=== PATIENT | female | born 1950 | race Caucasian/White ===

== ENCOUNTER → 2019-03-31 07:37 | Outpatient (CLI) | payer MEDICARE, SELFPAY ==
--- NOTE | ~2019-03-31 | US_ITS ---
EXAMINATION: US aorta [facility] scrn DATE: 03/31/2019 08:08 INDICATION: Nicotine dependence, hypertension, hypercholesterolemia TECHNIQUE: Grayscale, color Doppler, and pulsed Doppler images of the aorta and common iliac arteries were obtained. COMPARISON: None. FINDINGS: Maximum vascular dimensions are as follows: Proximal aorta: 2.1 cm Mid aorta: 1.9 cm Distal aorta: 1.3 cm Right common iliac artery: 1.0 cm Left common iliac artery: 1.0 cm There is no evidence of abdominal aortic aneurysm. IMPRESSION: 1. No sonographic evidence of abdominal aortic aneurysm. 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
== END ==
PROVIDERS: PCP Family Medicine; Visit Provider Family Medicine
DX: F17.201 Nicotine dependence, unspecified, in remission (principal)
CPT/HCPCS: 76706

== ENCOUNTER → 2019-04-22 08:15 | Outpatient (CLI) | payer MEDICARE, SELFPAY ==
--- NOTE | ~2019-04-22 | US_ITS ---
EXAMINATION: US renal BI EXAM DATE: 04/22/2019 08:40 INDICATION: Short of kidney and ureter. Elevated creatinine. TECHNIQUE: Multiple grayscale and Doppler images of the kidneys were obtained (by a technologist who performed the scan) and subsequently reviewed. Comparison is made to prior examination from 06/13/2018 . FINDINGS: Right kidney: There is normal contour and echogenicity. It measures 13.4 x 6.4 x 7.9 centimeters. T here are no focal renal lesions identified. There is moderate caliectasis of the lower pole moiety, could indicate duplicated renal collecting system, possibly with obstruction or could be chronic find ing. Left kidney: There is normal contour and echogenicity. It measures 10.2 x 5.0 x 6.5 centimeters. Pos sible echogenic focus, left nephrolithiasis measuring 7 mm. There is no hydronephrosis. Bladder unremarkable. IMPRESSION: 1. Moderate hydronephrosis right kidney lower moiety, could indicate duplicated collecting system wi th obstruction of one of the ureters. 2. Probable left nephrolithiasis. Reviewed, dictated and finalized at location A. E CHEMICAL DEPENDENCY IMPRESSION: 1. Moderate hydronephrosis right kidney lower moiety, could indicate duplicate d collecting system with obstruction of one of the ureters. 2. Probable left nephrolithiasis.
== END ==
PROVIDERS: Visit Provider Family Medicine
DX: N20.0 Calculus of kidney (principal)
CPT/HCPCS: 76775

== ENCOUNTER → 2019-05-27 08:45 | Outpatient (CLI) | payer MEDICARE, SELFPAY ==
--- NOTE | ~2019-05-27 | CT_ITS ---
EXAMINATION: CT abdomen pelvis wo con DATE: 05/27/2019 09:06 INDICATION: Hematuria and right flank pain TECHNIQUE: Computed tomography (CT) of the abdomen and pelvis was performed without intravenous contr ast. The dose-length product (DLP) was 805.67 mGy-cm. Automated exposure control and iterative recons truction technique were employed. COMPARISON: None FINDINGS: The lung bases are clear. The heart size is normal. Calcified coronary artery atheroscleros is is noted. There is a 1.3 cm cyst of the left hepatic lobe. The liver is otherwise unremarkable. Th e spleen, pancreas, and adrenal glands are normal. A stone is present in the nondistended gallbladder . There is a duplicated collecting system on the right. There are stones measuring 7 mm and 4 mm in t he mid ureter of the lower pole moiety which causes moderate hydroureteronephrosis. There is also a 7 mm stone in the bladder at the right ureterovesicular junction. There is a 2 mm stone in the right k idney lower pole. There are two nonobstructing stones of the left kidney measuring 6 mm and 4 mm. No pathologically enlarged abdominal or pelvic lymph nodes are identified. There is no free intraperiton eal gas or evidence of bowel obstruction. The appendix is normal. There is a small fat-containing umb ilical hernia. IMPRESSION: 1. 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 2. 7 mm stone in the bladder near the right ureterovesicular junction. 3. Nonobstructing left nephrolithiasis. 4. Cholelithiasis without evidence of cholecystitis. Reviewed, dictated and finalized at location B. IMPRESSION: 1. 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 2. 7 mm stone in the bladder near the right ureterovesicular junction. 3. Nonobstructing left nephrolithiasis. 4. Cholelithiasis without evidence of cholecystitis.
== END ==
PROVIDERS: PCP Family Medicine; Visit Provider Urology
DX: N21.0 Calculus in bladder (principal); N20.0 Calculus of kidney; K80.20 Calculus of gallbladder without cholecystitis without obstruction
CPT/HCPCS: 74176

== ENCOUNTER 2019-06-01 08:53 | Outpatient (CLI) | payer MEDICARE, SELFPAY ==
--- NOTE | 2019-06-01 09:26 | ECG_ITS ---
Measurements Intervals [place] Rate: 73 P: 30 NM: 155 QRS: -5 QRSD: 90 T: 21 QT: 368 QTc: 407 Interpretive Statements SINUS RHYTHM BASELINE ARTIFACT- II, III, AVF NORMAL ECG Electronically Signed On 06-01-2019 9:48:56 CDT by Luiz Burgos D.O.
[2019-06-01 09:31] LABS: Blood Urea Nitrogen 17 mg/dL (7-17); Calcium 10.1 mg/dL (8.4-10.2); Carbon Dioxide 31 mmol/L (22-30); Chloride 102 mmol/L (98-107); Estimated Glomerular Filt Rate 55; Glucose 100 mg/dL (65-105); Potassium 3.9 mmol/L (3.4-5.0); Sodium 138 mmol/L (137-145)
== END 2019-06-01 08:54 | disposition home or self-care (01) ==
PROVIDERS: PCP Family Medicine; Visit Provider Anesthesiology
DX: I10 Essential (primary) hypertension (principal)
CPT/HCPCS: 36415; 80048; 93005

== ENCOUNTER 2019-06-03 02:23 | Day surgery (SDC) | payer MEDICARE, SELFPAY ==
[2019-05-31 15:34] VITALS: BMI 32.7
[2019-06-03] VITALS (7 sets, daily range): BP systolic 128–159; BP diastolic 60–77; PULSE 96–107; RESP 15–20; TEMP 36.6–37.3; O2SAT 95–100
--- NOTE | ~2019-06-03 | XR_ITS ---
XR retrograde pyelo w/stent RT DATE: 06/03/2019 11:46 INDICATION: TECHNIQUE: 59.1 seconds complete 1.39 mGym2 COMPARISON: None FINDINGS: There is partial duplication of the right ureter. There is moderate hydronephrosis with bl unting of the right renal calyces. A right internal urinary stent is placed in expected position IMPRESSION: Duplicated right kidney, ureter Right internal urinary stent placement Reviewed, dictated and finalized at Location A. Reviewed, dictated and finalized at location B.
--- NOTE | 2019-06-03 07:43 | WPDHPUPDATE1 ---
History and Physical Update Update Date/Time: 06/03/19 07:43 History and Physical has been reviewed, including an updated exam of the patient. There are NO changes in the patient's condition. Risks, benefits, and alternatives have been discussed and questions answered. Patient agrees to proceed with procedure.
[2019-06-03] MEDS: LACTATED RINGERS 1,000 ML 30 ML IV CONT ×2 (09:45→12:25)
--- NOTE | 2019-06-03 10:23 | WPDANESEPPF ---
Anes - Initial Pre Proc Eval Procedure: Operation Date: 06/03/19 11:15 Proposed Procedures p Cystoscopy, Right Ureteroscopy, - Arnie Dial MD s Laser Lithotripsy with Stone Extraction, Right Stent Placement - Arnie Dial MD Date/Time: 06/03/19 10:23 Surgeon: Arnie Dial MD Pre Op Diagnosis: kidney stones Patient Data Age: 69 Gender: F Height: 5 ft 6 in Weight: 92 kg Last Vital Signs Temp 37.3 C 06/03/19 10:14 Pulse 97 06/03/19 10:14 Resp 18 06/03/19 10:14 BP 159/72 H 06/03/19 10:14 Pulse Ox 98 06/03/19 10:14 Allergies Allergy/AdvReac Type Severity Reaction Status Date / Time atorvastatin Allergy Unknown severe Verified 06/03/19 10:08 muscle pain simvastatin Allergy Unknown severe Verified 06/03/19 10:08 muscle pain Home Medications Medication Instructions Recorded Confirmed Type aspirin 81 mg tablet,delayed 81 mg PO DAILY 03/10/19 06/03/19 History release fenofibrate 160 mg tablet 160 mg PO DAILY #90 tablet 05/20/19 06/03/19 Rx hydrochlorothiazide 25 mg tablet 25 mg PO DAILY #90 tablet 05/20/19 06/03/19 Rx lisinopril 20 mg tablet 20 mg PO DAILY #90 tablet 05/20/19 06/03/19 Rx cholecalciferol (vitamin D3) 50 mcg PO DAILY 05/31/19 06/03/19 History [Vitamin D3] Patient hx anesthesia problems: none Family hx anesthesia problems: none PMFSH Family History Family History Mother Patient's mother is , Onset Age: 52 Hypertension Sibling Family history of lung cancer Family history of coronary artery disease Social History Social History Smoking status: Current every day smoker Alcohol intake: never Anes - Eval Final PreProcedure Day of Procedure 06/03/19 10:23 Patient weight: obese Heart: regular rate and rhythm Lungs: clear to auscultation Airway: Mallampati scale class II Neurological: alert and oriented Last oral intake: >/= 8 hours ASA classification: II Emergent: no Anesthetic plan: proceed Anesthesia type and monitoring: general LMA and standard monitoring Informed Consent: The patient's anesthetic plan and its attendant risks and benefits were discussed with the patient/family/POA. Questions were solicited and answers provided to the satisfaction of the patient/family/POA.
--- NOTE | 2019-06-03 11:46 | P.OP_ITS ---
Procedure Note - Detailed Date of procedure: 06/03/19 Pre-op diagnosis: kidney stones Post-op diagnosis: same Procedure performed: 1. Cystoscopy, right retrograde pyelogram. 2. Right ureteroscopy with laser lithotripsy, stone extraction. 3. Right ureteral stent placement. Description of procedure: The patient was brought to the operative suite where she is prepped and draped in a routine sterile fashion while in the dorsal lithotomy position after the uneventful induction of a general LMA anesthetic. A 19F rigid cystoscope was placed in the bladder. The patient had no evidence of urethral stricture or bladder neck contracture. The bladder mucosa was endoscopically normal without hyperemia or neoplasm. There was a single, orthotopic ureteral orifice bilaterally. 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 Indeed she has partial duplication of the right ureter with of visible calcified stone at L5 in the lower pole moiety. A 0.035 glidewire was advanced into the the renal pelvis of that lower pole under fluoroscopy. The distal ureter was dilated with an 8F/10F ureteral dilator. Ureteroscopy was undertaken with a short tapered semi-rigid ureteroscope. With ureteroscopy I found only one, large impacted stone in the ureter, which I fractured the stone into smaller pieces using a 273micron Holmium laser fiber with the Holmium laser. I was able to then ex tract the stone pieces using a 1.9F Escape, disposable stone basket. Due to the extent of this manipulation I did place a 4.8F double-J ureteral stent. Ureteroscopy of the upper pole moiety revealed no significant findings. The proximal coil of the stent was confirmed to be in the renal pelvis and the distal coil in the bladder. The patient's bladder was emptied and he was taken to the recovery room having tolerated this procedure well. Anesthesia: GLMA Surgeon: Arnie Dial MD Estimated blood loss (mL): 0 Drains: Yes (4.8F ureteral stent) Packing: No Pathology: yes Complications: No immediate complications Condition: stable Disposition: PACU
[2019-06-03] MEDS: ONDANSETRON INJ 4 MG/2 ML VIAL IV PUSH (12:51)
== END 2019-06-03 13:45 | disposition home or self-care (01) ==
PROVIDERS: PCP Family Medicine; Visit Provider Urology
PROC: (CPT 52352; principal; 2019-06-03 11:15)
PROC: (CPT 52356; 2019-06-03 11:15)
DX: N20.2 Calculus of kidney with calculus of ureter (principal); Q62.5 Duplication of ureter; F17.210 Nicotine dependence, cigarettes, uncomplicated; Z79.82 Long term (current) use of aspirin; E66.9 Obesity, unspecified; Z68.32 Body mass index [BMI] 32.0-32.9, adult
CPT/HCPCS: 52356; 74420; 82365; 88300; A9270; C1769; C1887; C2617; J0690; J1100; J2405; J2704; J3010; J7120; Q9966

== ENCOUNTER 2019-06-28 06:40 | Inpatient (IN) | payer MEDICARE, SELFPAY ==
[2019-06-28] VITALS (17 sets, daily range): BP systolic 78–164; BP diastolic 42–76; PULSE 90–127; RESP 14–24; TEMP 36.5–39.8; O2SAT 90–100; BMI 33.7
--- NOTE | ~2019-06-28 | XR_ITS ---
EXAMINATION: XR chest 1V portable EXAM DATE: 06/28/2019 19:39 INDICATION: Cough and fever. TECHNIQUE: Portable AP frontal chest x-ray was obtained. Correlation is made to CT abdomen pelvis ear lier same day. FINDINGS: Probable small amount of perihilar atelectasis or pneumonia bilaterally. Large peripherally calcified gallstone. There is no pneumothorax suspected. There are no pleural effusions. Cardiomedia stinal silhouette is normal. There are no osseous abnormalities identified. IMPRESSION: Probable small amount of bilateral perihilar atelectasis and/or infection. Reviewed, dictated and finalized at location A. IMPRESSION: Probable small amount of bilateral perihilar atelectasis and/or in fection.
--- NOTE | ~2019-06-28 | CT_ITS ---
EXAMINATION: CT abdomen pelvis wo con DATE: 06/28/2019 07:29 INDICATION: Left flank pain. Fever. TECHNIQUE: Computed tomography (CT) of the abdomen and pelvis was performed without intravenous contr ast. Automated exposure control and iterative reconstruction technique were employed. The dose-length product was 353.93 mGy-cm. COMPARISON: CT abdomen and pelvis 05/27/2019 FINDINGS: The visualized portions of the lung bases demonstrate mild atelectasis. No pleural effusion . The heart size is normal. No pericardial effusion. There is a gallstone in the gallbladder, which i s normal in size. There is diffuse hepatic steatosis. The spleen, pancreas, and adrenal glands are no rmal. There is a 10 mm cyst in right kidney. There is a 4 mm stone in right kidney lower pole. 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 There is mild hydronephrosis and proximal hydroureter involving right kidney inferior pole with interval improvement after stone removal. There is a 6 mm stone in left ki dney. There is mild left hydronephrosis and hydroureter. There are 2 mm and 4 mm stones and proximal left ureter. There are no dilated loops of bowel. The appendix is normal. There are no pathologically enlarged lymph nodes. There is no free intraperitoneal fluid. There is mild thoracolumbar spondylosi s. IMPRESSION: 1. 2 mm and 4 mm stones in proximal left ureter with mild left hydronephrosis and hydroureter. 2. Bilateral nonobstructing kidney stones. 3. Mild hydronephrosis and proximal hydroureter involving right kidney inferior pole with interval im provement after stone removal. Reviewed, dictated and finalized at location A. IMPRESSION: 1. 2 mm and 4 mm stones in proximal left ureter with mild left hydronephrosis a nd hydroureter. 2. Bilateral nonobstructing kidney stones. 3. Mild hydronephrosis and proximal hydroureter involving right kidney inferior pole with interval improvement after stone removal.
--- NOTE | ~2019-06-28 | XR_ITS ---
XR chest 1V portable 06/30/2019 15:31 Indication: Cough, shortness of breath. Hypertension. Procedure: AP portable chest Comparison: 06/28/2019 Findings: Persistent patchy bilateral airspace disease, compatible with pneumonia. No pleural effusio n or pneumothorax. Heart size normal. No acute osseous abnormality. There is a gallstone in the right upper abdomen. Impression: 1: Persistent patchy bilateral airspace disease, compatible with pneumonia. Reviewed, dictated and finalized at location A. Impression: 1: Persistent patchy bilateral airspace disease, compatible with pneumonia.
--- NOTE | ~2019-06-28 | XR_ITS ---
EXAMINATION: XR retrograde pyelo w/stent BI EXAM DATE: 06/28/2019 10:25 INDICATION: Bilateral stent placement. Left ureteral stones. Bilateral hydronephrosis. TECHNIQUE: Fluoroscopy used during XR retrograde pyelo w/stent BI performed by Dr. Gerson Millan MD. The DAP for this procedure was 1.3 mGym2. Cine run(s) available for review. FINDINGS: The left ureter was cannulated, injected first. There is a gas bubble identified. Difficul t to identify stones. Mild left hydronephrosis. A left double-J ureteral stent was positioned. Right ureter was then cannulated, injected, is partially duplicated with ureters merging probably about 7 c m from the ureterovesicular junction. A right-sided double-J ureteral stent was placed, the proximal loop in the inferior moiety which had moderate hydronephrosis. Correlate with procedure note. IMPRESSION: Fluoroscopy used during XR retrograde pyelo w/stent BI. Reviewed, dictated and finalized at location A.
[2019-06-28 07:06] LABS: Basophils Absolute Auto 0.1 K/mm3 (0.0-0.1); Basophils Percent Auto 0.3 % (0.2-1.2); Hematocrit 35.6 % (37.0-47.0); Immature Granulocyte Absolute 0.17 K/mm3 (0.00-0.031); Immature Granulocyte Percent A 0.7 % (0-0.5); Lymphocytes Absolute Auto 1.02 K/mm3 (0.9-3.2); Lymphocytes Percent Auto 4.2 % (18.3-44.2); Mean Corpuscular HGB Conc 33.7 g/dl (32-36); Mean Corpuscular Hemoglobin 28.2 pg (26-34); Mean Corpuscular Volume 83.6 fl (80-100); Mean Platelet Volume 9.3 fl (7.4-10.4); Monocytes Absolute Auto 1.7 K/mm3 (0.1-0.6); Monocytes Percent Auto 6.8 % (2.6-8.5); Neutrophils Absolute Auto 21.5 K/mm3 (1.3-6.7); Platelet Count Result 339 k/mm3 (150-375); Red Blood Count 4.26 M/mm3 (4.2-5.4); Red Cell Distribution Width 12.8 % (11.5-14.5); White Blood Count 24.4 K/mm3 (4.5-10.0)
[2019-06-28 07:12] LABS: Add Urine Microscopic? YES; Appearance Urine Cloudy (Clear); Bacteria Urine 1+ /hpf; Bilirubin Urine Negative (Negative); Blood Urine 2+ (Negative); Color Urine Yellow (Yellow); Glucose Urine UA Negative (Negative); Ketones Urine Negative (Negative); Leukocyte Esterase Ur 3+ LEU/UL (Negative); Mucus Urine Few /lpf; Nitrate Urine Negative (Negative); Protein Urine 2+ mg/dL (Negative); RBC Urine 21-50 /hpf (0-2); Specific Grav Ur 1.014 (1.001-1.035); Squamous Epithelial Cell Urine Many /hpf (Few); WBC Urine >75 /hpf
[2019-06-28 07:21] LABS: Blood Urea Nitrogen 27 mg/dL (7-17); Calcium 9.7 mg/dL (8.4-10.2); Carbon Dioxide 28 mmol/L (22-30); Chloride 97 mmol/L (98-107); Estimated Glomerular Filt Rate 32; Glucose 146 mg/dL (65-105); Potassium 3.5 mmol/L (3.4-5.0); Sodium 133 mmol/L (137-145)
--- NOTE | 2019-06-28 07:22 | PC.NURSE ---
Pt to CT scan via stretcher.
--- NOTE | 2019-06-28 07:23 | ED.FEVER ---
HPI - Fever General Chief Complaint: Fever Stated Complaint: possible UTI Time Seen by Provider: 06/28/19 07:02 History of Present Illness HPI Narrative: Patient is a 69-year-old female who presents the ER with left flank pain and fever. Earlier this month patient was found to have 2 right ureteral stones. She under went neural stenting and lithotripsy. She has had the stent removed 2 weeks ago. A couple days after stent removal patient noticed she started to develop dark-colored urine. She now has malodorous urine. She started having fevers 3 days ago but has not had a fever for 2 days. Last night she began vomiting and having left-sided flank pain. No aggravating or alleviating factors that she is noted. Patient also notes that she has had some mild runny nose with postnasal drip and cough due to allergies and she will occasionally take allergy medication which improves this. Related Data Home Medications Medication Instructions Recorded Confirmed aspirin 81 mg tablet,delayed 81 mg PO DAILY 03/10/19 06/03/19 release cholecalciferol (vitamin D3) 50 mcg PO DAILY 05/31/19 06/03/19 [Vitamin D3] Allergies Allergy/AdvReac Type Severity Reaction Status Date / Time atorvastatin Allergy Unknown severe Verified 06/28/19 07:34 muscle pain simvastatin Allergy Unknown severe Verified 06/28/19 07:34 muscle pain Review of Systems Review of Systems: All systems reviewed & are unremarkable except as noted in HPI and below Constitutional: Constitutional: Denies chills and Reports fever(s) ENT: Reports nasal congestion and Reports sore throat Respiratory: Respiratory: Reports cough, Denies dyspnea and Denies wheezing Gastrointestinal: Gastrointestinal: Denies abdominal pain, Reports bloating, Denies diarrhea, Reports nausea and Reports vomiting Genitourinary: Genitourinary: Denies hematuria, Reports nocturia, Denies dysuria, Reports flank pain and Denies urinary incontinence [facility] Past Medical History Medical History (Updated 06/28/19 @ 08:39 by Elian Ferguson MD) Essential hypertension Mixed hyperlipidemia Surgical History Surgical History (Updated 06/03/19 @ 12:01 by Brandi Clark MD) Status post laser lithotripsy of ureteral calculus 4.2.20 ( right) Social History Social History Smoking status: Current every day smoker Alcohol intake: never Gender identity (if verbalized by the patient): Female Exam Narrative: Exam Narrative: GENERAL: Well-appearing, well-nourished, and in no acute distress. HEAD: Normocephalic, atraumatic. Neck: Supple CHEST: Clear to auscultation. No respiratory distress. HEART: Regular rate and rhythm. Normal peripheral pulses. ABDOMEN: Soft, nontender, nondistended. Back: No CVA tenderness. No midline tenderness of thoracic or lumbar spine. No paraspinal muscular tenderness or spasm. EXTREMITIES: Normal range of motion. No edema. SKIN: Warm, dry, no rash. NEURO: Alert and oriented x3. PSYCH: Normal mood and affect. 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 Millan who is accepted patient for admission and will take her to the OR. Last oral intake was at 5:30 PM yesterday. Patient is aware that she is n.p.o. Ceftriaxone oredered. Vital Signs Vital signs: Vital Signs Temperature 97.7 F 06/28/19 06:47 Pulse Rate 102 H 06/28/19 06:47 Respiratory Rate 20 06/28/19 06:47 Blood Pressure 132/59 L 06/28/19 06:47 Pulse Oximetry 99 06/28/19 06:47 Temperature 97.7 F 06/28/19 06:47 Pulse Rate 90 06/28/19 08:16 Respiratory Rate 17 06/28/19 08:16 Blood Pressure 149/52 H 06/28/19 08:16 Pulse Oximetry 96 06/28/19 08:16 MDM - Fever Lab Data Result diagrams: 06/28/19 06:58 06/28/19 06:58 Labs: Lab Results 06/28/19 06/28/19 06/28/19 Range/Units 06:58 06:58 06:58 WBC 24.4 H (4.5-10.0) K/mm3 RBC 4.26 (4.2
[2019-06-28] MEDS: SODIUM CHLORIDE 0.9% IV 1,000 ML 999 ML IV CONT (07:34)
[2019-06-28] MEDS: ONDANSETRON INJ 4 MG/2 ML VIAL IV PUSH (07:34)
[2019-06-28] MEDS: MORPHINE SULFATE 4 MG/ML INJ IV PUSH (08:26)
--- NOTE | 2019-06-28 09:22 | PM.IMHP ---
H&P: HPI History of Present Illness Chief complaint: pyelonephritis/left ureteral stones Narrative: Sindhu Gonzalez is a 69 year old female She normally sees my partner Dr. Charles Dial. She has a history of nephrolithiasis. On June 03, 2019 she underwent a right ureteroscopy with stone extraction. Her stent was removed on June 14. She did well until this weekend when she started noting malodorous urine with urgency frequency and dysuria. She then started note left flank pain. This prompted a visit to the emergency room where she was found to have 2 proximal left ureteral stones as well as an abnormal urinalysis suspicious for infection. She endorses some fevers at home up to 101.8 over the weekend. I reviewed her imaging myself she has mild right hydronephrosis as well as mild left hydronephrosis with left ureteral stones. She has a white count of 24. She will be taken the operating room today for placement of at least a left ureteral stent and possibly a right ureteral stent as well. Her creatinine is elevated at 1.6 on her baseline of 1. Review of Systems Review of Systems: All systems reviewed & are unremarkable except as noted in HPI and below Constitutional: Comments: fever ENT: Reports Normal hearing present Cardiovascular: Cardiovascular: Denies chest pain Respiratory: Respiratory: Reports no additional respiratory complaints Genitourinary: Genitourinary: Denies hematuria, Reports nocturia, Reports dysuria and Reports flank pain Musculoskeletal: Musculoskeletal: Reports no additional musculoskeletal complaints [facility] Past Medical History Medical History (Updated 06/28/19 @ 09:26 by Gerson Millan MD) Essential hypertension Mixed hyperlipidemia Surgical History Surgical History (Updated 06/03/19 @ 12:01 by Brandi Clark MD) Status post laser lithotripsy of ureteral calculus 4.2.20 ( right) Social History Social History Smoking status: Current every day smoker Alcohol intake: never Gender identity (if verbalized by the patient): Female Meds Home Medications and Allergies Home Medications Medication Instructions Recorded Confirmed Type aspirin 81 mg tablet,delayed 81 mg PO DAILY 03/10/19 06/03/19 History release hydrochlorothiazide 25 mg tablet 25 mg PO DAILY #90 tablet 05/20/19 06/03/19 Rx lisinopril 20 mg tablet 20 mg PO DAILY #90 tablet 05/20/19 06/03/19 Rx cholecalciferol (vitamin D3) 50 mcg PO DAILY 05/31/19 06/03/19 History [Vitamin D3] cephalexin 500 mg PO Q8H #9 cap 06/03/19 Rx hydrocodone-acetaminophen 1 - 2 tablet PO Q6H PRN #20 tablet 06/03/19 Rx fenofibrate 160 mg tablet 160 mg PO DAILY #90 tablet 06/21/19 Rx Allergies Allergy/AdvReac Type Severity Reaction Status Date / Time atorvastatin Allergy Unknown severe Verified 06/28/19 07:34 muscle pain simvastatin Allergy Unknown severe Verified 06/28/19 07:34 muscle pain Vital Signs Vital Signs - 24 hr 06/28/19 06:47 06/28/19 08:16 06/28/19 09:12 Temperature 97.7 F Pulse Rate 102 H 90 99 Respiratory Rate 20 17 18 Blood Pressure 132/59 L 149/52 H 143/64 H Pulse Oximetry 99 96 97 Exam Const: General: uncomfortable HENMT: Mouth: Yes moist mucous membranes Eyes: EOM: EOMs intact bilaterally Neck: Lymphatic: lymphadenopathy not noted Resp: Effort & Inspection: normal respiratory effort Cardio: Rate: regular rate Rhythm: regular rhythm GI: GI Palp: Yes Soft to palpation Skin: General skin exam: normal color Neuro: Motor exam (neuro): Normal motor muscle tone present throughout Extrem: General: normal to inspection Psych: Mental Status: mental status grossly normal H&P: Results Labs Labs: Short CBC 06/28/19 Range/Units 06:58 WBC 24.4 H (4.5-10.0) K/mm3 Hgb 12.0 (12.0-15.0) g/dL Hct 35.6 L (37.0-47.0) % Plt Count 339 (150-375) k/mm3 [facility] 06/28/19 06:58 Sodium 133 L P
--- NOTE | 2019-06-28 09:35 | WPDANESEPPF ---
Anes - Initial Pre Proc Eval Procedure: Operation Date: 06/28/19 09:30 Proposed Procedures p Cystoscopy, Bilateral Stent Placement(Bilateral) - Gerson Millan MD Date/Time: 06/28/19 09:35 Surgeon: Gerson Millan MD Pre Op Diagnosis: pyelonephritis/left ureteral stones Patient Data Age: 69 Gender: F Height: Weight: 92 kg Last Vital Signs Temp 36.5 C 06/28/19 06:47 Pulse 99 06/28/19 09:12 Resp 18 06/28/19 09:12 BP 143/64 H 06/28/19 09:12 Pulse Ox 97 06/28/19 09:12 Allergies Allergy/AdvReac Type Severity Reaction Status Date / Time atorvastatin Allergy Unknown severe Verified 06/28/19 07:34 muscle pain simvastatin Allergy Unknown severe Verified 06/28/19 07:34 muscle pain Home Medications Medication Instructions Recorded Confirmed Type aspirin 81 mg tablet,delayed 81 mg PO DAILY 03/10/19 06/03/19 History release hydrochlorothiazide 25 mg tablet 25 mg PO DAILY #90 tablet 05/20/19 06/03/19 Rx lisinopril 20 mg tablet 20 mg PO DAILY #90 tablet 05/20/19 06/03/19 Rx cholecalciferol (vitamin D3) 50 mcg PO DAILY 05/31/19 06/03/19 History [Vitamin D3] cephalexin 500 mg PO Q8H #9 cap 06/03/19 Rx hydrocodone-acetaminophen 1 - 2 tablet PO Q6H PRN #20 tablet 06/03/19 Rx fenofibrate 160 mg tablet 160 mg PO DAILY #90 tablet 06/21/19 Rx Laboratory Tests 06/28/19 06/28/19 06/28/19 06:58 06:58 06:58 WBC 24.4 K/mm3 H K/mm3 (4.5-10.0) RBC 4.26 M/mm3 M/mm3 (4.2-5.4) Hgb 12.0 g/dL g/dL (12.0-15.0) Hct 35.6 % L % (37.0-47.0) MCV 83.6 fl fl (80-100) MCH 28.2 pg pg (26-34) MCHC 33.7 g/dl g/dl (32-36) RDW 12.8 % % (11.5-14.5) Plt Count 339 k/mm3 k/mm3 (150-375) MPV 9.3 fl fl (7.4-10.4) Immature Gran % (Auto) 0.7 % H % (0-0.5) Neut % (Auto) 88.0 % H % (45.5-73.1) Lymph % (Auto) 4.2 % L % (18.3-44.2) [place] % (Auto) 6.8 % % (2.6-8.5) Eos % (Auto) 0.0 % % (0-4.4) Baso % (Auto) 0.3 % % (0.2-1.2) Lymph # (Auto) 1.02 K/mm3 K/mm3 (0.9-3.2) [place] # (Auto) 1.7 K/mm3 H K/mm3 (0.1-0.6) Eos # (Auto) 0.0 K/mm3 K/mm3 (0-0.3) Baso # (Auto) 0.1 K/mm3 K/mm3 (0.0-0.1) Abs Immat Gran (auto) 0.17 K/mm3 H K/mm3 (0.00-0.031) Absolute Neuts (auto) 21.5 K/mm3 H K/mm3 (1.3-6.7) Absolute Nucleated RBC 0.0 K/mm3 K/mm3 (0.0-0.012) Nucleated RBC % 0.0 % % (0.0-0.2) Sodium 133 mmol/L L mmol/L (137-145) Potassium 3.5 mmol/L mmol/L (3.4-5.0) Chloride 97 mmol/L L mmol/L (98-107) Carbon Dioxide 28 mmol/L mmol/L (22-30) BUN 27 mg/dL H D mg/dL (7-17) Creatinine 1.60 mg/dL H mg/dL (0.7-1.0) Estim Creat Clear Calc Not Reportable Estimated GFR 32 L (59 - ) Glucose 146 mg/dL H mg/dL (65-105) Calcium 9.7 mg/dL mg/dL (8.4-10.2) Urine Color Yellow (Yellow) Urine Appearance Cloudy H (Clear) Urine pH 6.0 (5.0-9.0) Ur Specific [place] 1.014 (1.001-1.035) Urine Protein 2+ mg/dL H mg/dL (Negative) Urine Glucose (UA) Negative mg/dL mg/dL (Negative) Urine Ketones Negative mg/dL mg/dL (Negative) Ur Blood (Man) 2+ H (Negative) Urine Nitrate Negative (Negative) Urine Bilirubin Negative (Negative) Urine Urobilinogen 2.0 mg/dL H mg/dL (<2.0) Leukocyte Esterase Rfl 3+ LAMONT/UL H LAMONT/UL (Negative) Urine RBC 21-50 /hpf H /hpf (0-2) Urine WBC >75 /hpf H /hpf Ur Squamous Epith Cells Many /hpf H /hpf (Few) Urine Bacteria 1+ /hpf H /hpf Hyaline Casts 10-14 /lpf H /lpf (None) Urine Mucus Few /lpf H /lpf Patient hx anesthesia
[2019-06-28] MEDS: LACTATED RINGERS 1,000 ML 30 ML IV CONT ×2 (09:40→10:56)
--- NOTE | 2019-06-28 12:13 | PM.PROC ---
Procedure Note - Detailed Date of procedure: 06/28/19 Pre-op diagnosis: pyelonephritis/left ureteral stones Left hydronephrosis, right hydronephrosis Procedure performed: Cystoscopy. Bilateral retrograde pyelogram. Bilateral ureteral stent placements. Description of procedure: She was correctly identified and informed consent is obtained. She is brought to the operating room. She was given general anesthesia. She was prepped and draped in a sterile fashion. She was given ceftriaxone ER. Time-out performed. I performed cystoscopy. She had cloudy urine within the bladder. There was no bladder tumors. I did a gentle retrograde pyelogram on the left. It showed mild hydronephrosis and a single collecting system and ureter. I placed a 4.8 variable length stent. The proximal pole of the kidney. Distal coil in the bladder. I then repeated a retrograde pyelogram on the right. She had a duplicated collecting system joining in the distal ureter. She had hydronephrosis of her lower pole collecting system. I placed a guidewire into the lower pole. I then placed a 4.8 variable length stent. Proximal coil in the lower pole kidney. Distal pole in the bladder. The Ledesma catheter was placed. She was then awakened and transferred to the PACU in stable condition. Implants: Bilateral 4.8 ureteral stents. Anesthesia: GLMA Surgeon: Gerson Millan MD Estimated blood loss (mL): 0 Drains: Yes (Bilateral stents and Ledesma catheter) Packing: No Pathology: none sent Complications: No immediate complications Condition: stable Disposition: PACU
[2019-06-28] MEDS: OXYBUTYNIN CHLORIDE 5 MG TABLET PO ×2 (12:56→16:55)
[2019-06-28] MEDS: SODIUM CHLORIDE 0.9% IV 500 ML IV CONT (15:06)
[2019-06-28] MEDS: SODIUM CHLORIDE 0.9% IV 1,000 ML 100 ML IV CONT ×2 (19:46→20:18)
--- NOTE | 2019-06-28 20:18 | PM.IMCN ---
Assessment and Plan Assessment and plan (1) Sepsis: Code(s): A41.9 - Sepsis, unspecified organism Status: Acute Assessment and Plan: Most likely due to her pyelonephritis. I did switch her from Rocephin to Zosyn. Urine and blood cultures are pending. I did add a lactic with her reflux. Continue with IV fluids. Her blood pressure is low and his heart rate is high she has a white count which qualifies her for sepsis. (2) Acute kidney injury: Code(s): N17.9 - Acute kidney failure, unspecified Status: Acute Assessment and Plan: I decided to hold her hydrochlorothiazide and her lisinopril. 1.6 repeat in the a.m.. (3) Kidney stones: Code(s): N20.0 - Calculus of kidney Status: Acute Assessment and Plan: Patient has renal stents. A Ledesma catheter at this time. She has a history of having kidney stones in the past. (4) Mixed hyperlipidemia: Code(s): E78.2 - Mixed hyperlipidemia Status: Chronic Assessment and Plan: Continue with fenofibrate. (5) Essential hypertension: Code(s): I10 - Essential (primary) hypertension Status: Chronic Assessment and Plan: The patient's blood pressure is low at this time I held her hydrochlorothiazide lisinopril. Continue with IV fluids. Recheck in the a.m.. [facility] Data of Consult Consult date: 06/28/19 Requesting Physician: Gerson Millan MD Primary Care Provider: Brandi Clark MD Consult Narrative Narrative: Sindhu Gonzalez is a 69 year old female who has had multiple kidney stones in the past. She has had lithotripsy in the past. To the emergency room today with left flank pain and fever. She also has a dry cough which is chronic for years. She underwent stenting and lithotripsy in the past she had a stent removed 2 weeks ago. Couple days after the stent was removed she noted that she has developed dark colored urine. She now has malodorous urine. Patient states she coughs because she has postnasal drainage. I believe she said her fever started this past Friday. Urology was consulted and patient was taken to OR ureteral stent placements. She has been having urgency and frequency. The patient had some mild right hydronephrosis as well as mild left hydronephrosis with left ureteral stones. Her white count noted to be 24.4. She is placed on ceftriaxone. She has not had any previous drug-resistant bacteria. However since the patient appeared to be septic I did increase her antibiotics to Zosyn instead. Urine and blood cultures are pending. I did start her on some IV fluids patient appears to be dry. Her blood pressure was low in her heart rate was elevated also she has leukocytosis which gives her the diagnosis for sepsis. Patient is having less discomfort on the left side now. She has a Ledesma catheter in and it is draining tea-colored urine. That I ordered was read as probable small amount of bilateral perihilar atelectasis and/or infection. Her CT of the abdomen from earlier today was read as a 2 mm and 4 mm stones a proximal left ureter mild left hydronephrosis and hydroureter. Bilateral nonobstructing kidney stones. Mild hydronephrosis and proximal hydroureter involving right kidney inferior pole with interval improvement after stone removal. Please see op report. Date of service 06/28/2019 Review of Systems Review of Systems: All systems reviewed & are unremarkable except as noted in HPI and below Constitutional: Constitutional: Reports as per HPI and Reports no additional constitutional complaints Eyes: Eyes: Reports as per HPI and Reports no additional eye complaints ENT: Reports system reviewed and no additional complaints, except as documented and Reports Normal hearing present Cardiovascular: Cardiovascular: Reports no additional cardiovascular complaints Respiratory: Respiratory: Reports no additional respiratory complaints and Reports no additional respiratory complaints
--- NOTE | 2019-06-28 21:05 | PC.NURSE ---
Running pts normal bag of NS at 999 mL/hr for the bolus. Will then use 500 mL bag for cont. fluids.
[2019-06-28] MEDS: MELATONIN 3 MG TABLET PO (21:32)
[2019-06-28 21:43] LABS: Lactic Acid Reflex 2.6 mmol/L (0.7-2.1)
[2019-06-29] MEDS: SODIUM CHLORIDE 0.9% IV 500 ML 100 ML IV CONT (00:01)
[2019-06-29 00:29] LABS: Reflex Lactic Acid Yes or No Add Lactic
[2019-06-29 00:29] LABS: Hematocrit 28.3 % (37.0-47.0); Hemoglobin 9.3 g/dL (12.0-15.0); Mean Corpuscular HGB Conc 32.9 g/dl (32-36); Mean Corpuscular Hemoglobin 28.2 pg (26-34); Mean Corpuscular Volume 85.8 fl (80-100); Mean Platelet Volume 9.9 fl (7.4-10.4); Platelet Count Result 207 k/mm3 (150-375); Red Cell Distribution Width 13.3 % (11.5-14.5); White Blood Count 28.9 K/mm3 (4.5-10.0)
[2019-06-29 00:40] LABS: Blood Urea Nitrogen 31 mg/dL (7-17); Carbon Dioxide 21 mmol/L (22-30); Chloride 101 mmol/L (98-107); Estimated CRCL calculation 25 ml/min; Estimated Glomerular Filt Rate 22; Glucose 132 mg/dL (65-105); Potassium 3.7 mmol/L (3.4-5.0); Sodium 130 mmol/L (137-145)
[2019-06-29] MEDS: SODIUM CHLORIDE 0.9% IV 500 ML 999 ML IV CONT (01:13)
[2019-06-29 06:00] VITALS: BP 94/42; PULSE 84; RESP 22; TEMP 36.3; O2SAT 93
[2019-06-29] MEDS: SODIUM CHLORIDE 0.9% IV 1,000 ML 100 ML IV CONT ×2 (06:08→17:14)
--- NOTE | 2019-06-29 07:14 | WPDUROPN2 ---
Progress Note: A&P Assessment and Plan (1) Sepsis: Code(s): A41.9 - Sepsis, unspecified organism Status: Acute (2) Acute kidney injury: Code(s): N17.9 - Acute kidney failure, unspecified Status: Acute (3) Bilateral hydronephrosis: Code(s): N13.30 - Unspecified hydronephrosis Status: Acute (4) Left ureteral calculus: Code(s): N20.1 - Calculus of ureter Status: Acute Assessment and Plan: Septic following endoscopic procedure yesterday. Bilat. ureteral stents in place. Zosyn pending cultures. Endoscopic extraction left ureteral and renal calculi [id number]. Subjective Subjective Date/Time Seen: 06/29/19 07:14 Comfortable, tolerating stents. Septic following stent placement yesterday. Review of Systems Cardiovascular: Cardiovascular: Denies chest pain, Denies lightheadedness, Denies palpitations and Denies dyspnea Respiratory: Respiratory: Denies dyspnea Gastrointestinal: Gastrointestinal: Denies diarrhea, Denies nausea and Denies vomiting Genitourinary: Genitourinary: Denies hematuria and Denies dysuria Endocrine: Endocrine: Denies palpitations Exam Const: General: no acute distress Resp: Effort & Inspection: normal respiratory effort GI: Inspection: non-distended GI Palp: No abdominal tenderness and No Guarding due to palpation present (GI) Auscultation: normal bowel sounds Objective Data Vital Signs Vital Signs: Vital Signs - 24 hr 06/28/19 08:16 06/28/19 09:12 06/28/19 09:45 Temperature 103.6 F H Pulse Rate 90 99 127 H Respiratory Rate 17 18 20 Blood Pressure 149/52 H 143/64 H 164/61 H Pulse Oximetry 96 97 99 06/28/19 10:29 06/28/19 10:30 06/28/19 10:45 Temperature 99.6 F Pulse Rate 120 H 122 H 116 H Respiratory Rate 24 H 24 H 19 Blood Pressure 115/50 L 125/58 L 102/54 L Pulse Oximetry 100 94 93 06/28/19 11:00 06/28/19 11:15 06/28/19 11:30 Temperature Pulse Rate 113 H 118 H 117 H Respiratory Rate 22 H 22 H 17 Blood Pressure 144/76 H 133/66 131/60 Pulse Oximetry 94 94 93 06/28/19 13:30 06/28/19 13:55 06/28/19 14:00 Temperature 102.8 F H 99.8 F H 99.8 F H Pulse Rate 118 H 118 H Respiratory Rate 18 18 Blood Pressure 129/49 L 129/47 L Pulse Oximetry 96 96 06/28/19 16:52 06/28/19 20:38 06/28/19 21:29 Temperature 102.7 F H 99.9 F H Pulse Rate 117 H 100 Respiratory Rate 16 18 Blood Pressure 100/72 78/42 L 102/48 L Pulse Oximetry 93 90 06/28/19 23:52 06/29/19 06:00 Temperature 97.7 F 97.3 F L Pulse Rate 91 84 Respiratory Rate 14 22 H Blood Pressure 90/46 L 94/42 L Pulse Oximetry 92 93 Intake/Output Intake/Output: Intake & Output 06/26/19 06/27/19 06/28/19 06/29/19 23:59 23:59 23:59 23:59 Intake Total 3780 2700 Output Total 400 800 Balance 3380 1900 Meds/Results Medications: Active Medications Generic Name Dose Route Start Last Admin Trade Name Freq PRN Reason Stop Dose Admin Fenofibrate 160 mg 06/29/19 09:00 Fenofibrate PO DAILY ROMEL Piperacillin Sod/Tazobactam Sod 2.25 gm in 50 mls @ 100 mls/hr 06/28/19 19:00 06/29/19 06:32 Zosyn 2.25 Gm/D5w 50 Ml IVPB Infused Q6HR ROMEL Infusion Acetaminophen 1,000 mg in 100 mls @ 400 mls/hr 06/28/19 18:56 06/28/19 21:47 Ofirmev 1,000 Mg Ivpb IVPB 06/29/19 18:57 Infused Q6H PRN Infusion Pain Rated 4-6 Sodium Chloride 1,000 mls @ 100 mls/hr 06/28/19 20:00 06/29/19 06:08 Normal Saline Iv IV CONT 100 mls/hr .Q10H ROMEL Administration Melatonin 3 mg 06/28/19 20:14 06/28/19 21:32 Melatonin PO 3 mg HS PRN Administration Insomnia Oxybutynin Chloride 5 mg 06/28/19 13:00 06/28/19 16:55 Ditropan PO 5 mg TID ROMEL Administration Psyllium Hydrophilic Mucilloid 1 packet 06/29/19 09:00 Metamucil Packet PO DAILY COUNT INCLUDES THE [facility] Radiology Results: ITS Impressions Abdomen/Pelvis CT 06/28/19 07:36 IMPRESSION: 1. 2 mm and 4 mm stones in proximal left
[2019-06-29] MEDS: OXYBUTYNIN CHLORIDE 5 MG TABLET PO ×3 (08:07→17:15)
[2019-06-29] MEDS: METAMUCIL PACKET 1 PACKET PO (08:08)
[2019-06-29 09:30] VITALS: PULSE 92; RESP 18; O2SAT 91
[2019-06-29] MEDS: FENOFIBRATE 160 MG TABLET PO (09:30)
[2019-06-29 09:35] LABS: Hematocrit 31.7 % (37.0-47.0); Hemoglobin 10.3 g/dL (12.0-15.0); Mean Corpuscular HGB Conc 32.5 g/dl (32-36); Mean Corpuscular Hemoglobin 28.5 pg (26-34); Mean Corpuscular Volume 87.8 fl (80-100); Mean Platelet Volume 10.8 fl (7.4-10.4); Platelet Count Result 209 k/mm3 (150-375); Red Blood Count 3.61 M/mm3 (4.2-5.4); Red Cell Distribution Width 13.5 % (11.5-14.5); White Blood Count 30.3 K/mm3 (4.5-10.0)
[2019-06-29 09:47] LABS: Alanine Aminotransferase 27 U/L (4-35); Albumin Level 3.1 g/dL (3.5-5.1); Alkaline Phosphatase 73 U/L (38-126); Aspartate Amino Transferase 46 U/L (14-36); Bilirubin,Total 1.2 mg/dL (0.2-1.3); Blood Urea Nitrogen 32 mg/dL (7-17); Calcium 8.3 mg/dL (8.4-10.2); Carbon Dioxide 22 mmol/L (22-30); Chloride 101 mmol/L (98-107); Estimated CRCL calculation 29 ml/min; Estimated Glomerular Filt Rate 26; Glucose 106 mg/dL (65-105); Lactic Acid 1.8 mmol/L (0.7-2.1); Magnesium 1.5 mg/dL (1.6-2.3); Sodium 133 mmol/L (137-145)
[2019-06-29 10:09] LABS: Band Neutrophils Percent 15 % (0-6); Basophils Percent Manual 1 % (0-1); Lymphocytes Absolute Manual 1.51 K/mm3 (1.1-4.5); Monocytes Percent Manual 2 % (3-9); Neutrophils Absolute Manual 27.87 K/mm3 (1.7-7.2); Neutrophils Percent Manual 77 % (46-73); Platelet Estimate Adequate (Adequate); Total Cells Counted 100
[2019-06-29] MEDS: ONDANSETRON INJ 4 MG/2 ML VIAL IV PUSH (10:22)
--- NOTE | 2019-06-29 12:23 | P.PNIM_ITS ---
Progress Note: A&P Assessment and Plan (1) Bacteremia: Code(s): R78.81 - Bacteremia <Shanna Lianna Floydac, PA-C - Last Filed: 06/29/19 16:27> Status: Acute <Shanna Lianna Stimac, PA-C - Last Filed: 06/29/19 16:27> Assessment and Plan: Blood cultures reveal Klebsiella pneumoniae. Susceptibility report is pending. This is likely related to urinary source. Preliminary urine culture is growing gram negative bacilli. Patient has been afebrile today. Tmax 102.7F on 06/27. * Continue IV Zosyn * Continue IV fluids * Await susceptibility reports of blood cultures. <Shanna Ronda. Marielac, PA-C - Last Filed: 06/29/19 16:27> (2) Sepsis: Code(s): A41.9 - Sepsis, unspecified organism <Shanna J. Marielac, PA-C - Last Filed: 06/29/19 16:27> Status: Acute <Shanna Lianna Stimac, PA-C - Last Filed: 06/29/19 16:27> Assessment and Plan: Patient became septic following endoscopic procedure on 06/27 evident by leukocytosis, tachycardia, and tachypnea. Source of infection likely urinary. WBC 28.9 today. She is afebrile. Lactic initially elevated at 2.6 but is wnl today at 1.8. * Continue IV Zosyn * Continue IV fluids * Continue to monitor vitals watching closely for refractory hypotension. <Shanna Floydac, PA-C - Last Filed: 06/29/19 16:27> (3) Acute kidney injury: Code(s): N17.9 - Acute kidney failure, unspecified <Shanna J. Stimac, PA-C - Last Filed: 06/29/19 16:27> Status: Acute <Shanna J. Stimac, PA-C - Last Filed: 06/29/19 16:27> Assessment and Plan: At presentation, Cr 1.6. Today, creatinine is 1.9. BUN is 32. This may be post-renal due to renal calculus or may be intra-renal due to infection. Urine output has improved. * Continue to monitor kidney function * Continue to hold HCTZ and lisinopril * Continue IV fluids * Renally dose medications and avoid nephrotoxic agents <Shanna Floydshaun PA-C - Last Filed: 06/29/19 16:27> (4) Acute respiratory failure with hypoxia: Code(s): J96.01 - Acute respiratory failure with hypoxia <Shanna Floydshaun PA-C - Last Filed: 06/29/19 16:27> Status: Acute <Shanna Floydshaun PA-C - Last Filed: 06/29/19 16:27> Assessment and Plan: Patient was previously hypoxic and requiring 10L O2 via simple face mask. She was weaned to 4L then 2L. Today, she is up to 3L O2 via NC. Patient endorses SOB with activity. CXR reveals probable small amount of bilateral perihilar atelectasis and/or infection. * Continue to monitor oxygen saturation * Continue O2 and wean to goal O2 saturation >92% * Begin nebulized albuterol and incentive spirometer * Continue to monitor CXR for changes <Shanna BondMelissa Marielshaun PA-C - Last Filed: 06/29/19 16:27> (5) Kidney stones: Code(s): N20.0 - Calculus of kidney <Shanna Floydshaun, PA-C - Last Filed: 06/29/19 16:27> Status: Acute <Shanna Floydshaun PA-C - Last Filed: 06/29/19 16:27> Assessment and Plan: Patient has bilateral ureteral stents placed 06/28/19 and has an indwelling lemon catheter at this time. She has a history of kidney stones in the past. * Continue to monitor. * Urology is following and recommend stone removal at later date. <Shanna BondMelissa Marielshaun PA-C - Last Filed: 06/29/19 16:27> (6) Essential hypertension: Code(s): I10 - Essential (primary) hypertension <Shanna BondMelissa Nixon PA-C - Last Filed: 06/29/19 16:27> Status: Chronic <Shanna JMelissa Nixon PA-C - Last Filed: 06/29/19 16:27> Assessment and Plan: Bl
--- NOTE | 2019-06-29 12:23 | PM.IMPN ---
Progress Note: A&P Assessment and Plan (1) Bacteremia: Code(s): R78.81 - Bacteremia <Shanna J. Stimac, PA-C - Last Filed: 06/29/19 16:27> Status: Acute <Shanna J. Stimac, PA-C - Last Filed: 06/29/19 16:27> Assessment and Plan: Blood cultures reveal Klebsiella pneumoniae. Susceptibility report is pending. This is likely related to urinary source. Preliminary urine culture is growing gram negative bacilli. Patient has been afebrile today. Tmax 102.7F on 06/27. Continue IV Zosyn Continue IV fluids Await susceptibility reports of blood cultures. <Shanna J. Stimac, PA-C - Last Filed: 06/29/19 16:27> (2) Sepsis: Code(s): A41.9 - Sepsis, unspecified organism <Shanna J. Stimac, PA-C - Last Filed: 06/29/19 16:27> Status: Acute <Shanna J. Stimac, PA-C - Last Filed: 06/29/19 16:27> Assessment and Plan: Patient became septic following endoscopic procedure on 06/27 evident by leukocytosis, tachycardia, and tachypnea. Source of infection likely urinary. WBC 28.9 today. She is afebrile. Lactic initially elevated at 2.6 but is wnl today at 1.8. Continue IV Zosyn Continue IV fluids Continue to monitor vitals watching closely for refractory hypotension. <Shanna J. Stimac, PA-C - Last Filed: 06/29/19 16:27> (3) Acute kidney injury: Code(s): N17.9 - Acute kidney failure, unspecified <Shanna J. Stimac, PA-C - Last Filed: 06/29/19 16:27> Status: Acute <Shanna J. Stimac, PA-C - Last Filed: 06/29/19 16:27> Assessment and Plan: At presentation, Cr 1.6. Today, creatinine is 1.9. BUN is 32. This may be post-renal due to renal calculus or may be intra-renal due to infection. Urine output has improved. Continue to monitor kidney function Continue to hold HCTZ and lisinopril Continue IV fluids Renally dose medications and avoid nephrotoxic agents <Shanna J. Stimac, PA-C - Last Filed: 06/29/19 16:27> (4) Acute respiratory failure with hypoxia: Code(s): J96.01 - Acute respiratory failure with hypoxia <Shanna Nixon PA-C - Last Filed: 06/29/19 16:27> Status: Acute <Shanna RondaMelissa Nixon PA-C - Last Filed: 06/29/19 16:27> Assessment and Plan: Patient was previously hypoxic and requiring 10L O2 via simple face mask. She was weaned to 4L then 2L. Today, she is up to 3L O2 via NC. Patient endorses SOB with activity. CXR reveals probable small amount of bilateral perihilar atelectasis and/or infection. Continue to monitor oxygen saturation Continue O2 and wean to goal O2 saturation >92% Begin nebulized albuterol and incentive spirometer Continue to monitor CXR for changes <Shanna Nixon PA-C - Last Filed: 06/29/19 16:27> (5) Kidney stones: Code(s): N20.0 - Calculus of kidney <Shanna Nixon PA-C - Last Filed: 06/29/19 16:27> Status: Acute <Shanna Nixon PA-C - Last Filed: 06/29/19 16:27> Assessment and Plan: Patient has bilateral ureteral stents placed 06/28/19 and has an indwelling lemon catheter at this time. She has a history of kidney stones in the past. Continue to monitor. Urology is following and recommend stone removal at later date. <Shanna Nixon PA-C - Last Filed: 06/29/19 16:27> (6) Essential hypertension: Code(s): I10 - Essential (primary) hypertension <Shanna Nixon PA-C - Last Filed: 06/29/19 16:27> Status: Chronic <Shanna Nixon PA-C - Last Filed: 06/29/19 16:27> Assessment and Plan: Blood pressure evaluated today and low at 94/42. Has been hypotensive with onset of sepsis but BP appears to be improving incrementally. Continue to hold hydrochlorothiazide and lisinopril. Continue with IV fluids. Continue to monitor blood pressure <Shanna Nixon PA-C - Last Filed: 06/29/19 16:27> (7) Urinary tract infection: Code(s): N39.0
[2019-06-29 13:57] VITALS: BP 104/51; PULSE 89; RESP 20; TEMP 36.8; O2SAT 95
[2019-06-29 16:15] VITALS: PULSE 111; RESP 18; O2SAT 91
[2019-06-29 20:00] VITALS: PULSE 111; RESP 18; O2SAT 91
[2019-06-29] MEDS: ACETAMINOPHEN 325 MG TABLET 650 MG PO (20:14)
[2019-06-29] MEDS: MELATONIN 3 MG TABLET PO (20:14)
[2019-06-29 21:43] VITALS: BP 97/50; PULSE 107; RESP 24; TEMP 37.6; O2SAT 93
[2019-06-30] MEDS: SODIUM CHLORIDE 0.9% IV 1,000 ML 100 ML IV CONT ×2 (04:12→15:11)
[2019-06-30 05:20] LABS: Hematocrit 30.8 % (37.0-47.0); Hemoglobin 10.3 g/dL (12.0-15.0); Mean Corpuscular HGB Conc 33.4 g/dl (32-36); Mean Corpuscular Hemoglobin 28.3 pg (26-34); Mean Corpuscular Volume 84.6 fl (80-100); Mean Platelet Volume 10.4 fl (7.4-10.4); Platelet Count Result 221 k/mm3 (150-375); Red Blood Count 3.64 M/mm3 (4.2-5.4); Red Cell Distribution Width 13.4 % (11.5-14.5); White Blood Count 28.7 K/mm3 (4.5-10.0)
[2019-06-30 05:23] LABS: Alanine Aminotransferase 29 U/L (4-35); Alkaline Phosphatase 98 U/L (38-126); Aspartate Amino Transferase 44 U/L (14-36); Bilirubin,Total 0.6 mg/dL (0.2-1.3); Blood Urea Nitrogen 24 mg/dL (7-17); Calcium 8.1 mg/dL (8.4-10.2); Carbon Dioxide 25 mmol/L (22-30); Chloride 108 mmol/L (98-107); Estimated CRCL calculation 45 ml/min; Estimated Glomerular Filt Rate 45; Glucose 119 mg/dL (65-105); Potassium 3.7 mmol/L (3.4-5.0); Sodium 137 mmol/L (137-145)
[2019-06-30 05:40] VITALS: BP 124/51; PULSE 101; RESP 20; TEMP 36.7; O2SAT 91
[2019-06-30 05:53] VITALS: PULSE 98; RESP 18; O2SAT 92
[2019-06-30 06:42] LABS: Band Neutrophils Percent 4 % (0-6); Eosinophils Absolute Manual 0.28 K/mm3 (0.02-0.5); Eosinophils Percent Manual 1 % (0-4); Lymphocytes Absolute Manual 0.28 K/mm3 (1.1-4.5); Monocytes Absolute Manual 0.28 K/mm3 (0.1-0.90); Monocytes Percent Manual 1 % (3-9); Neutrophils Absolute Manual 27.83 K/mm3 (1.7-7.2); Neutrophils Percent Manual 93 % (46-73); Platelet Estimate Adequate (Adequate); Total Cells Counted 100
[2019-06-30] MEDS: OXYBUTYNIN CHLORIDE 5 MG TABLET PO ×3 (08:24→17:19)
[2019-06-30] MEDS: FENOFIBRATE 160 MG TABLET PO (08:24)
[2019-06-30] MEDS: METAMUCIL PACKET 1 PACKET PO (08:24)
[2019-06-30] MEDS: ONDANSETRON INJ 4 MG/2 ML VIAL IV PUSH (12:13)
--- NOTE | 2019-06-30 13:51 | PM.IMPN ---
Progress Note: A&P Assessment and Plan (1) Bacteremia: Code(s): R78.81 - Bacteremia Status: Acute Assessment and Plan: Blood cultures reveal Klebsiella pneumoniae with susceptibility to Zosyn and Ceftriaxone. This is most likely due to urinary source as urine culture also grew >100,000 CFU Klebsiella pneumoniae. Tmax 102.7F on 06/27. Patient had very low grade fever of 99.7 on 06/28 evening. She has been afebrile today and chills have improved. WBC 28.7 today. Discontinue broad spectrum IV Zosyn Begin IV Ceftriaxone based on susceptibility report Continue IV fluids (2) Sepsis: Code(s): A41.9 - Sepsis, unspecified organism Status: Acute Assessment and Plan: Patient became septic following endoscopic procedure on 06/27 evident by leukocytosis, tachycardia, and tachypnea. Source of infection likely urinary. WBC 28.7 today. She is afebrile. Lactic initially elevated at 2.6 but is now wnl. BP has improved and is 124/51 today. Discontinue IV Zosyn Begin IV Ceftriaxone based on blood and urine culture susceptibility report Continue IV fluids Continue to monitor vitals watching closely for refractory hypotension. (3) Urinary tract infection: Code(s): N39.0 - Urinary tract infection, site not specified Status: Acute Assessment and Plan: Urine culture reveals >100,000 CFU Klebsiella pneumoniae with susceptibility to Zosyn and Ceftriaxone. WBC 28.7. She has been afebrile today. Discontinue IV Zosyn Begin IV Ceftriaxone Continue gentle IV fluids. (4) Acute kidney injury: Code(s): N17.9 - Acute kidney failure, unspecified Status: Acute Assessment and Plan: At presentation, Cr 1.6. Today, creatinine is 1.2. BUN is 24. KECIA be post-renal due to renal calculus or may be intra-renal due to infection. Urine output has improved and creatinine appears to be trending down. Continue to monitor kidney function Continue to hold HCTZ and lisinopril Continue gentle IV fluids Renally dose medications and avoid nephrotoxic agents (5) Acute respiratory failure with hypoxia: Code(s): J96.01 - Acute respiratory failure with hypoxia Status: Acute Assessment and Plan: Patient was previously hypoxic and requiring 10L O2 via simple face mask. She was weaned to 4L then 2L. Today, she is 92% on 3L O2 via NC. Patient endorses SOB with activity. CXR on 06/27 reveals probable small amount of bilateral perihilar atelectasis and/or infection. Continue to monitor oxygen saturation Continue O2 and wean to goal O2 saturation >92% Begin nebulized albuterol prn and incentive spirometer Will repeat CXR to monitor for changes (6) Kidney stones: Code(s): N20.0 - Calculus of kidney Status: Acute Assessment and Plan: Patient has bilateral ureteral stents placed 06/28/19 and has an indwelling lemon catheter at this time. She has a history of kidney stones in the past. Continue to monitor. Urology is following and recommend stone removal at later date. (7) Essential hypertension: Code(s): I10 - Essential (primary) hypertension Status: Chronic Assessment and Plan: Blood pressure evaluated today and stable at 124/51. Had been hypotensive with onset of sepsis but BP appears to be improving incrementally. Continue to hold hydrochlorothiazide and lisinopril. Continue with IV fluids. Continue to monitor blood pressure Subjective Date/time seen: 06/30/19 13:51 Interval history: Date of service: 06/30/2019 Ms. Gonzalez reports feeling very run down and fatigued. She becomes short of breath with movement or rotation in bed. She got up to use the restroom yesterday evening which made her very short of breath and required increased oxygen demand. She has not been up from bed today. She endorses cough productive of sputum. She denies chest pain or orthopnea. She states that her chills have improved,
[2019-06-30 14:00] VITALS: BP 122/60; PULSE 68; RESP 18; TEMP 36.8; O2SAT 93
--- NOTE | 2019-06-30 15:50 | WPDUROPN2 ---
Progress Note: A&P Assessment and Plan (1) Sepsis: Code(s): A41.9 - Sepsis, unspecified organism Status: Acute Assessment and Plan: On appropriate abx. WBC 28.7 today. Continue to monitor (2) Urinary tract infection: Code(s): N39.0 - Urinary tract infection, site not specified Status: Acute Assessment and Plan: as above (3) Kidney stones: Code(s): N20.0 - Calculus of kidney Status: Acute Assessment and Plan: To be addressed once over this acute episode Subjective Subjective Date/Time Seen: 06/30/19 15:50 Principal diagnosis: sepsis Interval history: Continues to feel weak. BC and UC positive. On appropriate abx Review of Systems Review of Systems: All systems reviewed & are unremarkable except as noted in HPI and below Exam HENMT: General nose exam: Normal nares present Cardio: Rhythm: regular rhythm Objective Data Vital Signs Vital Signs: Vital Signs - 24 hr 06/29/19 16:15 06/29/19 20:00 06/29/19 21:43 Temperature 37.6 C H Pulse Rate 111 H 111 H 107 H Respiratory Rate 18 18 24 H Blood Pressure 97/50 L Pulse Oximetry 91 91 93 06/30/19 05:40 06/30/19 05:53 06/30/19 14:00 Temperature 36.7 C 36.8 C Pulse Rate 101 H 98 68 Respiratory Rate 20 18 18 Blood Pressure 124/51 L 122/60 Pulse Oximetry 91 92 93 Intake/Output Intake/Output: Intake & Output 06/27/19 06/28/19 06/29/19 06/30/19 23:59 23:59 23:59 23:59 Intake Total 4280 4800 2540 Output Total 400 2375 1400 Balance 3880 2425 1140 Meds/Results Medications: Active Medications Generic Name Dose Route Start Last Admin Trade Name Freq PRN Reason Stop Dose Admin Acetaminophen 650 mg 06/29/19 13:33 06/29/19 20:14 Tylenol Tablet PO 650 mg Q4H PRN Administration Mild pain 1-3, Headache Albuterol 2 puff 06/29/19 15:30 Proventil Hfa INHALATION QIDRT PRN Shortness Of Breath Fenofibrate 160 mg 06/29/19 09:00 06/30/19 08:24 Fenofibrate PO 160 mg DAILY [facility] Administration Guaifenesin 600 mg 06/29/19 21:00 06/30/19 08:24 Mucinex 12 Hr Tab PO 600 mg Q12HR ROMEL Administration Sodium Chloride 1,000 mls @ 100 mls/hr 06/28/19 20:00 06/30/19 15:11 Normal Saline Iv IV CONT 100 mls/hr .Q10H ROMEL Administration Ceftriaxone Sodium/Dextrose 1 gm in 50 mls @ 100 mls/hr 06/30/19 09:00 06/30/19 10:06 Rocephin 1 Gm/D5w 50 Ml IVPB Infused Q24H ROMEL Infusion Melatonin 3 mg 06/28/19 20:14 06/29/19 20:14 Melatonin PO 3 mg HS PRN Administration Insomnia Ondansetron HCl 4 mg 06/29/19 09:56 06/30/19 12:13 Zofran Inj IV PUSH 4 mg Q4H PRN Administration Nausea And Vomiting Oxybutynin Chloride 5 mg 06/28/19 13:00 06/30/19 13:08 Ditropan PO 5 mg TID ROMEL Administration Psyllium Hydrophilic Mucilloid 1 packet 06/29/19 09:00 06/30/19 08:24 Metamucil Packet PO 1 packet DAILY ROM[facility] Administration Radiology Results: ITS Impressions Abdomen/Pelvis CT 06/28/19 07:36 IMPRESSION: 1. 2 mm and 4 mm stones in proximal left ureter with mild left hydronephrosis and hydroureter. 2. Bilateral nonobstructing kidney stones. 3. Mild hydronephrosis and proximal hydroureter involving right kidney inferior pole with interval improvement after stone removal. Retrograde Pyelogram 06/28/19 15:09 IMPRESSION: Fluoroscopy used during XR retrograde pyelo w/stent BI. Chest X-Ray 06/30/19 15:34 Impression: 1: Persistent patchy bilateral airspace disease, compatible with pneumonia. Labs Labs: Laboratory Results - last 24 hr 06/30/19 06/30/19 06/30/19 04:51 04:51 08:38 WBC 28.7 H RBC 3.64 L Hgb 10.3 L Hct 30.8 L MCV 84.6 MCH 28.3 MCHC 33.4 RDW 13.4 Plt Count 221 MPV 10.4 Immature Gran % (Auto) Not Reportable Neut % (Auto) Not Reportable Lymph % (Auto) Not Reportable [place] % (Auto) Not Reportable Eos % (Aut
[2019-06-30] MEDS: BISACODYL 5 MG TABLET EC PO (17:19)
[2019-06-30 20:12] VITALS: BP 135/60; PULSE 97; RESP 18; TEMP 36.6; O2SAT 93
[2019-06-30] MEDS: ACETAMINOPHEN 325 MG TABLET 650 MG PO (20:20)
[2019-06-30 20:47] VITALS: O2SAT 91
[2019-07-01] VITALS (7 sets, daily range): BP systolic 138–144; BP diastolic 63–73; PULSE 88–97; RESP 18–26; TEMP 36.6–37.2; O2SAT 91–96
[2019-07-01] MEDS: SODIUM CHLORIDE 0.9% IV 1,000 ML 100 ML IV CONT ×2 (01:17→14:49)
[2019-07-01 05:32] LABS: Hematocrit 29.9 % (37.0-47.0); Hemoglobin 9.9 g/dL (12.0-15.0); Mean Corpuscular HGB Conc 33.1 g/dl (32-36); Mean Corpuscular Volume 84.7 fl (80-100); Mean Platelet Volume 10.3 fl (7.4-10.4); Platelet Count Result 247 k/mm3 (150-375); Red Blood Count 3.53 M/mm3 (4.2-5.4); Red Cell Distribution Width 13.6 % (11.5-14.5); White Blood Count 27.2 K/mm3 (4.5-10.0)
[2019-07-01 05:36] LABS: Alanine Aminotransferase 24 U/L (4-35); Albumin Level 2.8 g/dL (3.5-5.1); Alkaline Phosphatase 113 U/L (38-126); Aspartate Amino Transferase 34 U/L (14-36); Bilirubin,Total 0.4 mg/dL (0.2-1.3); Blood Urea Nitrogen 16 mg/dL (7-17); Calcium 8.6 mg/dL (8.4-10.2); Carbon Dioxide 27 mmol/L (22-30); Chloride 108 mmol/L (98-107); Estimated CRCL calculation 59 ml/min; Estimated Glomerular Filt Rate > 60; Glucose 98 mg/dL (65-105); Lactic Acid 0.5 mmol/L (0.7-2.1); Magnesium 1.9 mg/dL (1.6-2.3); Potassium 3.9 mmol/L (3.4-5.0); Sodium 139 mmol/L (137-145)
[2019-07-01 06:41] LABS: Band Neutrophils Percent 3 % (0-6); Lymphocytes Absolute Manual 1.08 K/mm3 (1.1-4.5); Monocytes Absolute Manual 0.54 K/mm3 (0.1-0.90); Monocytes Percent Manual 2 % (3-9); Neutrophils Absolute Manual 25.56 K/mm3 (1.7-7.2); Neutrophils Percent Manual 91 % (46-73); Platelet Estimate Adequate (Adequate); Total Cells Counted 100
--- NOTE | 2019-07-01 08:29 | WPDUROPN2 ---
Progress Note: A&P Assessment and Plan (1) Sepsis: Code(s): A41.9 - Sepsis, unspecified organism Status: Acute (2) Urinary tract infection: Code(s): N39.0 - Urinary tract infection, site not specified Status: Acute Assessment and Plan: as above (3) Kidney stones: Code(s): N20.0 - Calculus of kidney Status: Acute Assessment and Plan: Starting to feel better but still with significant leukocytosis. Continue Ceftriaxone. Subjective Subjective Date/Time Seen: 07/01/19 08:29 Feeling better, more energetic Review of Systems Cardiovascular: Cardiovascular: Denies chest pain, Denies lightheadedness, Denies palpitations and Denies dyspnea Respiratory: Respiratory: Denies dyspnea Gastrointestinal: Gastrointestinal: Denies diarrhea, Denies nausea and Denies vomiting Genitourinary: Genitourinary: Denies hematuria and Denies dysuria Endocrine: Endocrine: Denies palpitations Exam Const: General: no acute distress and uncomfortable HENMT: General nose exam: Normal nares present Mouth: Yes moist mucous membranes Eyes: EOM: EOMs intact bilaterally Neck: Lymphatic: lymphadenopathy not noted Resp: Effort & Inspection: normal respiratory effort Cardio: Rate: regular rate Rhythm: regular rhythm GI: Inspection: non-distended GI Palp: No abdominal tenderness and No Guarding due to palpation present (GI) Auscultation: normal bowel sounds Skin: General skin exam: normal color Neuro: Cranial nerves: Yes Normal hearing present Motor exam (neuro): Normal motor muscle tone present throughout Extrem: General: normal to inspection Psych: Mental Status: mental status grossly normal Objective Data Vital Signs Vital Signs: Vital Signs - 24 hr 06/30/19 14:00 06/30/19 20:12 06/30/19 20:47 Temperature 98.2 F 98 F Pulse Rate 68 97 Respiratory Rate 18 18 Blood Pressure 122/60 135/60 Pulse Oximetry 93 93 91 07/01/19 06:00 Temperature 98 F Pulse Rate 88 Respiratory Rate 18 Blood Pressure 143/73 H Pulse Oximetry 96 Intake/Output Intake/Output: Intake & Output 06/28/19 06/29/19 06/30/19 07/01/19 23:59 23:59 23:59 23:59 Intake Total 4280 4800 2890 1450 Output Total 400 2375 2400 650 Balance 3880 2425 490 800 Meds/Results Medications: Active Medications Generic Name Dose Route Start Last Admin Trade Name Freq PRN Reason Stop Dose Admin Acetaminophen 650 mg 06/29/19 13:33 06/30/19 20:20 Tylenol Tablet PO 650 mg Q4H PRN Administration Mild pain 1-3, Headache Albuterol 2 puff 06/29/19 15:30 Proventil Hfa INHALATION QIDRT PRN Shortness Of Breath Azithromycin 250 mg 07/02/19 09:00 Zithromax Tablet PO 07/05/19 09:01 DAILY [facility] Bisacodyl 5 mg 06/30/19 18:00 06/30/19 17:19 Dulcolax Tab PO 5 mg EVENING ROMEL Administration Fenofibrate 160 mg 06/29/19 09:00 06/30/19 08:24 Fenofibrate PO 160 mg DAILY [facility] Administration Guaifenesin 600 mg 06/29/19 21:00 06/30/19 20:16 Mucinex 12 Hr Tab PO 600 mg Q12HR ROMEL Administration Sodium Chloride 1,000 mls @ 100 mls/hr 06/28/19 20:00 07/01/19 01:17 Normal Saline Iv IV CONT 100 mls/hr .Q10H ROMEL Administration Ceftriaxone Sodium/Dextrose 1 gm in 50 mls @ 100 mls/hr 06/30/19 09:00 06/30/19 10:06 Rocephin 1 Gm/D5w 50 Ml IVPB Infused Q24H ROMEL Infusion Melatonin 3 mg 06/28/19 20:14 06/29/19 20:14 Melatonin PO 3 mg HS PRN Administration Insomnia Ondansetron HCl 4 mg 06/29/19 09:56 06/30/19 12:13 Zofran Inj IV PUSH 4 mg Q4H PRN Administration Nausea And Vomiting Oxybutynin Chloride 5 mg 06/28/19 13:00 06/30/19 17:19 Ditropan PO 5 mg TID ROMEL Administration Psyllium Hydrophilic Mucilloid 1 packet 06/29/19 09:00 06/30/19 08:24 Metamucil Packet PO 1 packet DAILY [facility] Administration Radiology Results: ITS Impressions Abdomen/Pelvis CT 06/28/19 07:36
[2019-07-01] MEDS: FENOFIBRATE 160 MG TABLET PO (08:58)
[2019-07-01] MEDS: OXYBUTYNIN CHLORIDE 5 MG TABLET PO ×3 (08:58→16:28)
[2019-07-01] MEDS: AZITHROMYCIN 250 MG TABLET 500 MG PO (09:49)
--- NOTE | 2019-07-01 15:06 | P.PNIM_ITS ---
Progress Note: A&P Assessment and Plan (1) Bacteremia: Code(s): R78.81 - Bacteremia Status: Acute Assessment and Plan: Blood cultures reveal Klebsiella pneumoniae with susceptibility to Zosyn and Ceftriaxone. This is most likely due to urinary source as urine culture also grew >100,000 CFU Klebsiella pneumoniae. Tmax 102.7F on 06/27. She has been afebrile >12 hours and no longer experiencing chills. WBC slowly trending down and is 27.2 today * Continue IV Ceftriaxone based on susceptibility report * Continue IV fluids (2) Sepsis: Code(s): A41.9 - Sepsis, unspecified organism Status: Acute Assessment and Plan: Patient became septic following endoscopic procedure on 06/27 evident by leukocytosis, tachycardia, and tachypnea. Source of infection likely urinary. WBC 27.2 today. Lactic initially elevated at 2.6 but is now wnl. BP has improved and is 143/73 today. * Continue IV Ceftriaxone based on blood and urine culture susceptibility report * Continue IV fluids * Continue to monitor vitals watching closely for refractory hypotension. (3) Urinary tract infection: Code(s): N39.0 - Urinary tract infection, site not specified Status: Acute Assessment and Plan: Urine culture reveals >100,000 CFU Klebsiella pneumoniae with susceptibility to Zosyn and Ceftriaxone. WBC 27.2. She has been afebrile today>12 hours. * Continue IV Ceftriaxone * Continue gentle IV fluids. * Ledesma discontinued today (4) Pneumonia: Code(s): J18.9 - Pneumonia, unspecified organism Status: Acute Assessment and Plan: CXR today revealed probable pneumonia. Patient endorses shortness of breath and productive cough. Previously had fevers. She is 93% on 2 L oxygen via nasal cannula. * Continue IV ceftriaxone * Begin azithromycin * Continue acetaminophen prn fever * Continue albuterol MDI. * Continue Mucinex and Cornet (5) Acute kidney injury: Code(s): N17.9 - Acute kidney failure, unspecified Status: Acute Assessment and Plan: At presentation, Cr 1.6. Today, creatinine is 0.9. BUN is 16. KECIA be post-renal due to renal calculus or may be intra-renal due to infection. Urine output has improved and creatinine appears to be trending down. * Continue to monitor kidney function * Continue to hold HCTZ and lisinopril * Continue gentle IV fluids * Renally dose medications and avoid nephrotoxic agents * Continue to monitor urine output (6) Acute respiratory failure with hypoxia: Code(s): J96.01 - Acute respiratory failure with hypoxia Status: Acute Assessment and Plan: Patient was previously hypoxic and requiring 10L O2 via simple face mask. Today, she is 93% on 2L O2 via NC. Patient endorses SOB with activity and wheezing. CXR on 06/27 reveals probable small amount of bilateral perihilar atelectasis and/or infection. Repeat CXR today shows probable pneumonia. * Continue to monitor oxygen saturation * Continue O2 and wean to goal O2 saturation >92% * Continue albuterol MDI and incentive spirometer (7) Kidney stones: Code(s): N20.0 - Calculus of kidney Status: Acute Assessment and Plan: Patient has bilateral ureteral stents placed 06/28/19. She has a history of kidney stones in the past. * Continue to monitor. * Urology is following and recommend stone removal at later date. * Ledesma discontinued today. (8) Essential hypertension: Code(s): I10 - Essential (primary) hypertension Status: C
--- NOTE | 2019-07-01 15:06 | PM.IMPN ---
Progress Note: A&P Assessment and Plan (1) Bacteremia: Code(s): R78.81 - Bacteremia Status: Acute Assessment and Plan: Blood cultures reveal Klebsiella pneumoniae with susceptibility to Zosyn and Ceftriaxone. This is most likely due to urinary source as urine culture also grew >100,000 CFU Klebsiella pneumoniae. Tmax 102.7F on 06/27. She has been afebrile >12 hours and no longer experiencing chills. WBC slowly trending down and is 27.2 today Continue IV Ceftriaxone based on susceptibility report Continue IV fluids (2) Sepsis: Code(s): A41.9 - Sepsis, unspecified organism Status: Acute Assessment and Plan: Patient became septic following endoscopic procedure on 06/27 evident by leukocytosis, tachycardia, and tachypnea. Source of infection likely urinary. WBC 27.2 today. Lactic initially elevated at 2.6 but is now wnl. BP has improved and is 143/73 today. Continue IV Ceftriaxone based on blood and urine culture susceptibility report Continue IV fluids Continue to monitor vitals watching closely for refractory hypotension. (3) Urinary tract infection: Code(s): N39.0 - Urinary tract infection, site not specified Status: Acute Assessment and Plan: Urine culture reveals >100,000 CFU Klebsiella pneumoniae with susceptibility to Zosyn and Ceftriaxone. WBC 27.2. She has been afebrile today>12 hours. Continue IV Ceftriaxone Continue gentle IV fluids. Ledesma discontinued today (4) Pneumonia: Code(s): J18.9 - Pneumonia, unspecified organism Status: Acute Assessment and Plan: CXR today revealed probable pneumonia. Patient endorses shortness of breath and productive cough. Previously had fevers. She is 93% on 2 L oxygen via nasal cannula. Continue IV ceftriaxone Begin azithromycin Continue acetaminophen prn fever Continue albuterol MDI. Continue Mucinex and Cornet (5) Acute kidney injury: Code(s): N17.9 - Acute kidney failure, unspecified Status: Acute Assessment and Plan: At presentation, Cr 1.6. Today, creatinine is 0.9. BUN is 16. KECIA be post-renal due to renal calculus or may be intra-renal due to infection. Urine output has improved and creatinine appears to be trending down. Continue to monitor kidney function Continue to hold HCTZ and lisinopril Continue gentle IV fluids Renally dose medications and avoid nephrotoxic agents Continue to monitor urine output (6) Acute respiratory failure with hypoxia: Code(s): J96.01 - Acute respiratory failure with hypoxia Status: Acute Assessment and Plan: Patient was previously hypoxic and requiring 10L O2 via simple face mask. Today, she is 93% on 2L O2 via NC. Patient endorses SOB with activity and wheezing. CXR on 06/27 reveals probable small amount of bilateral perihilar atelectasis and/or infection. Repeat CXR today shows probable pneumonia. Continue to monitor oxygen saturation Continue O2 and wean to goal O2 saturation >92% Continue albuterol MDI and incentive spirometer (7) Kidney stones: Code(s): N20.0 - Calculus of kidney Status: Acute Assessment and Plan: Patient has bilateral ureteral stents placed 06/28/19. She has a history of kidney stones in the past. Continue to monitor. Urology is following and recommend stone removal at later date. Ledesma discontinued today. (8) Essential hypertension: Code(s): I10 - Essential (primary) hypertension Status: Chronic Assessment and Plan: Blood pressure evaluated today and stable at 143/73. Had been hypotensive with onset of sepsis but BP is increasing. Continue to hold hydrochlorothiazide and lisinopril. Continue with IV fluids. Continue to monitor blood pressure. Plan to resume antihypertensives when clinically appropriate as kidney function is improved. Subjective Date/time seen: 07/01/19 15:06 Interval history:
[2019-07-01] MEDS: ALBUTEROL SULFATE (*SP) AEROSOL 1 PUFF 2 PUFF INHALATION ×2 (15:26→19:41)
[2019-07-01] MEDS: DOCUSATE SODIUM 100 MG CAPSULE PO (20:50)
[2019-07-02] MEDS: SODIUM CHLORIDE 0.9% IV 1,000 ML 100 ML IV CONT (00:21)
[2019-07-02 05:16] VITALS: BP 134/61; PULSE 81; RESP 20; TEMP 36.4; O2SAT 96
[2019-07-02 05:16] LABS: Basophils Absolute Auto 0.1 K/mm3 (0.0-0.1); Basophils Percent Auto 0.6 % (0.2-1.2); Eosinophils Absolute Auto 0.3 K/mm3 (0-0.3); Eosinophils Percent Auto 1.3 % (0-4.4); Hematocrit 29.2 % (37.0-47.0); Hemoglobin 9.7 g/dL (12.0-15.0); Immature Granulocyte Absolute 1.05 K/mm3 (0.00-0.031); Lymphocytes Absolute Auto 1.79 K/mm3 (0.9-3.2); Lymphocytes Percent Auto 8.5 % (18.3-44.2); Mean Corpuscular HGB Conc 33.2 g/dl (32-36); Mean Corpuscular Hemoglobin 28.1 pg (26-34); Mean Corpuscular Volume 84.6 fl (80-100); Mean Platelet Volume 10.1 fl (7.4-10.4); Monocytes Absolute Auto 1.7 K/mm3 (0.1-0.6); Monocytes Percent Auto 8.1 % (2.6-8.5); Neutrophils Absolute Auto 16.1 K/mm3 (1.3-6.7); Neutrophils Percent Auto 76.5 % (45.5-73.1); Nucleated Red Blood Cells Perc 0.1 % (0.0-0.2); Platelet Count Result 268 k/mm3 (150-375); Red Blood Count 3.45 M/mm3 (4.2-5.4); Red Cell Distribution Width 13.7 % (11.5-14.5); White Blood Count 21.1 K/mm3 (4.5-10.0)
[2019-07-02 05:35] LABS: Alanine Aminotransferase 23 U/L (4-35); Albumin Level 2.9 g/dL (3.5-5.1); Alkaline Phosphatase 107 U/L (38-126); Aspartate Amino Transferase 31 U/L (14-36); Bilirubin,Total 0.3 mg/dL (0.2-1.3); Blood Urea Nitrogen 15 mg/dL (7-17); Calcium 8.4 mg/dL (8.4-10.2); Carbon Dioxide 26 mmol/L (22-30); Chloride 107 mmol/L (98-107); Estimated CRCL calculation 66 ml/min; Estimated Glomerular Filt Rate > 60; Glucose 121 mg/dL (65-105); Potassium 3.7 mmol/L (3.4-5.0); Sodium 137 mmol/L (137-145)
--- NOTE | 2019-07-02 07:38 | WPDUROPN2 ---
Progress Note: A&P Assessment and Plan (1) Sepsis: Code(s): A41.9 - Sepsis, unspecified organism Status: Acute (2) Urinary tract infection: Code(s): N39.0 - Urinary tract infection, site not specified Status: Acute Assessment and Plan: as above (3) Kidney stones: Code(s): N20.0 - Calculus of kidney Status: Acute Assessment and Plan: Starting to feel better but still with significant leukocytosis. Continue Ceftriaxone. 07/02/2019 Slow progress but getting better. Switch to oral Levaquin next 1-2 days / home if leukocytosis continue to improve would be OK with me. Subjective Subjective Date/Time Seen: 07/02/19 07:38 Progress - slow but relentless. More energy today, poor appetite and slightly short of breath Review of Systems Cardiovascular: Cardiovascular: Denies chest pain, Denies lightheadedness, Denies palpitations and Denies dyspnea Respiratory: Respiratory: Denies dyspnea Gastrointestinal: Gastrointestinal: Denies diarrhea, Denies nausea and Denies vomiting Genitourinary: Genitourinary: Denies hematuria and Denies dysuria Endocrine: Endocrine: Denies palpitations Exam Const: General: no acute distress Resp: Effort & Inspection: normal respiratory effort GI: Inspection: non-distended GI Palp: No abdominal tenderness and No Guarding due to palpation present (GI) Auscultation: normal bowel sounds Objective Data Vital Signs Vital Signs: Vital Signs - 24 hr 07/01/19 14:00 07/01/19 15:31 07/01/19 15:38 Temperature 98.4 F Pulse Rate 93 96 Respiratory Rate 26 H 18 Blood Pressure 138/63 Pulse Oximetry 93 91 07/01/19 19:40 07/01/19 20:19 07/01/19 20:30 Temperature 99.0 F Pulse Rate 97 Respiratory Rate 22 H Blood Pressure 144/63 H Pulse Oximetry 94 93 94 07/02/19 05:16 Temperature 97.6 F Pulse Rate 81 Respiratory Rate 20 Blood Pressure 134/61 Pulse Oximetry 96 Intake/Output Intake/Output: Intake & Output 06/29/19 06/30/19 07/01/19 07/02/19 23:59 23:59 23:59 23:59 Intake Total 4800 2890 2940 1774 Output Total 2375 2400 1200 300 Balance 2425 490 1740 1474 Meds/Results Medications: Active Medications Generic Name Dose Route Start Last Admin Trade Name Freq PRN Reason Stop Dose Admin Acetaminophen 650 mg 06/29/19 13:33 06/30/19 20:20 Tylenol Tablet PO 650 mg Q4H PRN Administration Mild pain 1-3, Headache Albuterol 2 puff 07/01/19 16:00 07/01/19 19:41 Proventil Hfa INHALATION 2 puff QIDRT ROMEL Administration Azithromycin 250 mg 07/02/19 09:00 Zithromax Tablet PO 07/05/19 09:01 DAILY [facility] Docusate Sodium 100 mg 07/01/19 21:00 07/01/19 20:50 Colace Capsule PO 100 mg Q12HR ROMEL Administration Fenofibrate 160 mg 06/29/19 09:00 07/01/19 08:58 Fenofibrate PO 160 mg DAILY ROMEL Administration Guaifenesin 600 mg 06/29/19 21:00 07/01/19 20:50 Mucinex 12 Hr Tab PO 600 mg Q12HR ROMEL Administration Sodium Chloride 1,000 mls @ 100 mls/hr 06/28/19 20:00 07/02/19 04:56 Normal Saline Iv IV CONT 100 mls/hr .Q10H ROMEL Infusion Ceftriaxone Sodium/Dextrose 1 gm in 50 mls @ 100 mls/hr 06/30/19 09:00 07/01/19 09:26 Rocephin 1 Gm/D5w 50 Ml IVPB Infused Q24H ROMEL Infusion Melatonin 3 mg 06/28/19 20:14 06/29/19 20:14 Melatonin PO 3 mg HS PRN Administration Insomnia Ondansetron HCl 4 mg 06/29/19 09:56 06/30/19 12:13 Zofran Inj IV PUSH 4 mg Q4H PRN Administration Nausea And Vomiting Oxybutynin Chloride 5 mg 06/28/19 13:00 07/01/19 16:28 Ditropan PO 5 mg TID ROMEL Administration Psyllium Hydrophilic Mucilloid 1 packet 06/29/19 09:00 07/01/19 08:58 Metamucil Packet PO Not Given DAILY [facility] Radiology Results: [facility] Impressions Abdomen/Pelvis CT 06/28/19 07:36 IMPRESSION: 1. 2 mm and 4 mm stones in proximal left ureter with mild left hydronephrosis and hydroureter. 2.
[2019-07-02] MEDS: AZITHROMYCIN 250 MG TABLET PO (08:56)
[2019-07-02] MEDS: OXYBUTYNIN CHLORIDE 5 MG TABLET PO ×3 (08:57→16:50)
[2019-07-02] MEDS: FENOFIBRATE 160 MG TABLET PO (08:57)
--- NOTE | 2019-07-02 09:06 | PM.IMPN ---
Progress Note: A&P Assessment and Plan (1) Bacteremia: Code(s): R78.81 - Bacteremia Status: Acute Assessment and Plan: Blood cultures reveal Klebsiella pneumoniae with susceptibility to Zosyn and Ceftriaxone. Zosyn dc on 06/30/19. This is most likely due to urinary source as urine culture also grew >100,000 CFU Klebsiella pneumoniae. Tmax 102.7F on 06/27. She has been afebrile >24 hours and no longer experiencing chills. WBC slowly trending down and is 21.1 today Continue IV Ceftriaxone based on susceptibility report. Initiated on 06/30/19. Discontinue IV fluids as patient is improving and tolerating PO intake Plan to switch to oral abx in 1-2 days if leukocytosis continues to improve. (2) Sepsis: Code(s): A41.9 - Sepsis, unspecified organism Status: Resolved Assessment and Plan: Patient became septic following endoscopic procedure on 06/27 evident by leukocytosis, tachycardia, and tachypnea. Source of infection likely urinary. WBC 21.1 today. Lactic initially elevated at 2.6 but is now wnl. BP has improved and is 134/61 today. Continue IV Ceftriaxone based on blood and urine culture susceptibility report Discontinue IV fluids Continue to monitor vitals watching closely for refractory hypotension. (3) Urinary tract infection: Code(s): N39.0 - Urinary tract infection, site not specified Status: Acute Assessment and Plan: Urine culture reveals >100,000 CFU Klebsiella pneumoniae with susceptibility to Zosyn and Ceftriaxone. Zosyn dc on 06/30/19. Leukocytosis slowly improving and WBC 21.2 today. She has been afebrile >24 hours. Denies urinary symptoms. No CVA tenderness. Continue IV Ceftriaxone Discontinue IV fluids. Ledesma discontinued 07/01/19. (4) Pneumonia: Code(s): J18.9 - Pneumonia, unspecified organism Status: Acute Assessment and Plan: CXR 06/30 revealed probable pneumonia. Patient endorses shortness of breath and nonproductive cough. Previously had fevers. She is 96% on 2 L oxygen via nasal cannula. Continue IV ceftriaxone Continue PO azithromycin. Initiated on 07/01/19. Continue acetaminophen prn fever Continue albuterol MDI. Continue Mucinex and Cornet (5) Acute kidney injury: Code(s): N17.9 - Acute kidney failure, unspecified Status: Acute Assessment and Plan: At presentation, Cr 1.6. Today, creatinine is 0.8. BUN is 15. KECIA be post-renal due to renal calculus or may be intra-renal due to infection. Urine output has improved and creatinine appears to be trending down. Continue to monitor kidney function Continue to hold HCTZ and lisinopril. Continue gentle IV fluids Renally dose medications and avoid nephrotoxic agents Continue to monitor urine output (6) Acute respiratory failure with hypoxia: Code(s): J96.01 - Acute respiratory failure with hypoxia Status: Acute Assessment and Plan: Patient was previously hypoxic and requiring 10L O2 via simple face mask. Today, she is 96% on 2L O2 via NC. Patient endorses SOB with exertion. Wheezing improved.. CXR on 06/30 shows probable pneumonia. Continue to monitor oxygen saturation Continue to wean O2 saturation to goal >92% Continue albuterol MDI and incentive spirometer (7) Kidney stones: Code(s): N20.0 - Calculus of kidney Status: Acute Assessment and Plan: Patient has bilateral ureteral stents placed 06/28/19. She has a history of kidney stones in the past. Continue to monitor. Urology is following and recommend stone removal at later date. Ledesma discontinued 06/30. (8) Essential hypertension: Code(s): I10 - Essential (primary) hypertension Status: Chronic Assessment and Plan: Blood pressure evaluated today and stable at 134/61. Had been hypotensive with onset of sepsis but BP is now stable.. Continue to hold hydrochlorothiazide and lisinopril. Plan to resume i
[2019-07-02] MEDS: ALBUTEROL SULFATE (*SP) AEROSOL 1 PUFF 2 PUFF INHALATION ×4 (09:19→19:42)
[2019-07-02 14:40] VITALS: BP 146/61; PULSE 86; RESP 18; TEMP 37.2; O2SAT 95
[2019-07-02] MEDS: ACYCLOVIR 5% OINTMENT 15 GM TUBE 1 APPLIC TOPICAL ×2 (18:00→20:52)
[2019-07-02 19:48] VITALS: PULSE 81; RESP 24; O2SAT 95
[2019-07-02 20:48] VITALS: BP 150/88; PULSE 83; RESP 18; TEMP 37.4; O2SAT 92
[2019-07-02 20:50] VITALS: PULSE 83; RESP 18; O2SAT 92
[2019-07-02] MEDS: ONDANSETRON INJ 4 MG/2 ML VIAL IV PUSH (20:54)
[2019-07-03 04:22] VITALS: BP 148/78; PULSE 88; RESP 16; TEMP 36.9; O2SAT 92
[2019-07-03 06:25] LABS: Hematocrit 30.4 % (37.0-47.0); Hemoglobin 10.2 g/dL (12.0-15.0); Mean Corpuscular HGB Conc 33.6 g/dl (32-36); Mean Corpuscular Hemoglobin 28.4 pg (26-34); Mean Corpuscular Volume 84.7 fl (80-100); Mean Platelet Volume 10.6 fl (7.4-10.4); Platelet Count Result 322 k/mm3 (150-375); Red Blood Count 3.59 M/mm3 (4.2-5.4); Red Cell Distribution Width 13.7 % (11.5-14.5); White Blood Count 19.1 K/mm3 (4.5-10.0)
[2019-07-03 06:37] LABS: Blood Urea Nitrogen 13 mg/dL (7-17); Calcium 8.8 mg/dL (8.4-10.2); Carbon Dioxide 26 mmol/L (22-30); Chloride 104 mmol/L (98-107); Estimated CRCL calculation 59 ml/min; Estimated Glomerular Filt Rate > 60; Glucose 98 mg/dL (65-105); Potassium 3.8 mmol/L (3.4-5.0); Sodium 136 mmol/L (137-145)
[2019-07-03] MEDS: lisinopriL 20 MG TABLET PO (09:23)
[2019-07-03] MEDS: ACYCLOVIR 5% OINTMENT 15 GM TUBE 1 APPLIC TOPICAL ×5 (09:24→21:14)
[2019-07-03] MEDS: OXYBUTYNIN CHLORIDE 5 MG TABLET PO ×3 (09:24→17:10)
[2019-07-03] MEDS: FENOFIBRATE 160 MG TABLET PO (09:24)
[2019-07-03] MEDS: AZITHROMYCIN 250 MG TABLET PO (09:25)
[2019-07-03] MEDS: ALBUTEROL SULFATE (*SP) AEROSOL 1 PUFF 2 PUFF INHALATION ×4 (09:51→19:36)
[2019-07-03 09:55] VITALS: O2SAT 96
--- NOTE | 2019-07-03 10:27 | WPDUROPN2 ---
Progress Note: A&P Assessment and Plan (1) Urinary tract infection: Code(s): N39.0 - Urinary tract infection, site not specified Status: Acute Assessment and Plan: improving on ceftriaxone wbc down to 19 possibly home tomorrow (2) Kidney stones: Code(s): N20.0 - Calculus of kidney Status: Acute Assessment and Plan: s/p cysto bilateral stents 06/28/19 stone management as an outpatient after infection clears Subjective Subjective Date/Time Seen: 07/03/19 10:27 Pt feeling better today, voiding well, afeb Exam Resp: Effort & Inspection: normal respiratory effort GI: Inspection: normal to inspection : General: Yes no CVA tenderness Objective Data Vital Signs Vital Signs: Vital Signs - 24 hr 07/02/19 14:40 07/02/19 19:48 07/02/19 20:48 Temperature 37.2 C 37.4 C Pulse Rate 86 81 83 Respiratory Rate 18 24 H 18 Blood Pressure 146/61 H 150/88 H Pulse Oximetry 95 95 92 07/02/19 20:50 07/03/19 04:22 07/03/19 09:55 Temperature 36.9 C Pulse Rate 83 88 Respiratory Rate 18 16 Blood Pressure 148/78 H Pulse Oximetry 92 92 96 Intake/Output Intake/Output: Intake & Output 06/30/19 07/01/19 07/02/19 07/03/19 23:59 23:59 23:59 23:59 Intake Total 2890 2940 3182 690 Output Total 2400 1200 1500 950 Balance 490 1740 1682 -260 Meds/Results Medications: Active Medications Generic Name Dose Route Start Last Admin Trade Name Freq PRN Reason Stop Dose Admin Acetaminophen 650 mg 06/29/19 13:33 06/30/19 20:20 Tylenol Tablet PO 650 mg Q4H PRN Administration Mild pain 1-3, Headache Acyclovir 1 applic 07/02/19 18:00 07/03/19 09:24 Zovirax Ointment TOPICAL 1 applic 5 TIMES DAILY ROMEL Administration Albuterol 2 puff 07/01/19 16:00 07/03/19 09:51 Proventil Hfa INHALATION 2 puff QIDRT ROMEL Administration Azithromycin 250 mg 07/02/19 09:00 07/03/19 09:25 Zithromax Tablet PO 05/04/20 09:01 250 mg DAILY ROMEL Administration Docusate Sodium 100 mg 07/02/19 09:27 Colace Capsule PO Q12HR PRN constipation Fenofibrate 160 mg 06/29/19 09:00 07/03/19 09:24 Fenofibrate PO 160 mg DAILY ROMEL Administration Guaifenesin 600 mg 06/29/19 21:00 07/03/19 09:24 Mucinex 12 Hr Tab PO 600 mg Q12HR ROMEL Administration Ceftriaxone Sodium/Dextrose 1 gm in 50 mls @ 100 mls/hr 06/30/19 09:00 07/03/19 09:25 Rocephin 1 Gm/D5w 50 Ml IVPB 100 mls/hr Q24H ROMEL Administration Lisinopril 20 mg 07/03/19 09:00 07/03/19 09:23 Prinivil PO 20 mg DAILY ROMEL Administration Melatonin 3 mg 06/28/19 20:14 06/29/19 20:14 Melatonin PO 3 mg HS PRN Administration Insomnia Ondansetron HCl 4 mg 06/29/19 09:56 07/02/19 20:54 Zofran Inj IV PUSH 4 mg Q4H PRN Administration Nausea And Vomiting Oxybutynin Chloride 5 mg 06/28/19 13:00 07/03/19 09:24 Ditropan PO 5 mg TID ROMEL Administration Psyllium Hydrophilic Mucilloid 1 packet 06/29/19 09:00 07/03/19 09:22 Metamucil Packet PO Not Given DAILY [facility] Radiology Results: ITS Impressions Abdomen/Pelvis CT 06/28/19 07:36 IMPRESSION: 1. 2 mm and 4 mm stones in proximal left ureter with mild left hydronephrosis and hydroureter. 2. Bilateral nonobstructing kidney stones. 3. Mild hydronephrosis and proximal hydroureter involving right kidney inferior pole with interval improvement after stone removal. Retrograde Pyelogram 06/28/19 15:09 IMPRESSION: Fluoroscopy used during XR retrograde pyelo w/stent BI. Chest X-Ray 06/30/19 15:34 Impression: 1: Persistent patchy bilateral airspace disease, compatible with pneumonia. Labs Labs: Laboratory Results - last 24 hr 07/03/19 07/03/19 06:05 06:05 WBC 19.1 H RBC 3.59 L Hgb 10.2 L Hct 30.4 L MCV 84.7 MCH 28.4 MCHC 33.6 RDW 13.7 Plt Count 322 MPV 10.6 H Sodium 136 L Potassium 3.8 Chloride 104 Carbon Diox
[2019-07-03 14:00] VITALS: BP 142/68; PULSE 68; RESP 18; TEMP 36.8; O2SAT 98
--- NOTE | 2019-07-03 15:26 | P.PNIM_ITS ---
Progress Note: A&P Assessment and Plan (1) Bacteremia: Code(s): R78.81 - Bacteremia Status: Acute Assessment and Plan: Blood cultures reveal Klebsiella pneumoniae with susceptibility to Zosyn and Ceftriaxone. This is most likely due to urinary source as urine culture also grew >100,000 CFU Klebsiella pneumoniae. Tmax 102.7F on 06/27. She has been afebrile >48 hours and no longer experiencing chills. WBC slowly trending down and is 19.1 today * Continue IV Ceftriaxone based on susceptibility report. Initiated on 06/30/19. * Zosyn discontinued on 06/29 * IV fluids discontinued on 07/01 as patient improving and tolerating PO intake * Plan to switch to oral abx in 1-2 days as leukocytosis continues to improve. * Hopeful discharge tomorrow (2) Sepsis: Code(s): A41.9 - Sepsis, unspecified organism Status: Resolved Assessment and Plan: Patient became septic following endoscopic procedure on 06/27 evident by leukocytosis, tachycardia, and tachypnea. Source of infection likely urinary. WBC 19.1 today. Lactic initially elevated at 2.6 but is now wnl. Previously hypotensive but BP has stabilized.. * Continue IV Ceftriaxone based on blood and urine culture susceptibility report * IV fluids discontinued on 07/01 as patient is improving and tolerating PO intake * Continue to monitor vitals watching closely for refractory hypotension. (3) Urinary tract infection: Code(s): N39.0 - Urinary tract infection, site not specified Status: Acute Assessment and Plan: Urine culture reveals >100,000 CFU Klebsiella pneumoniae with susceptibility to Zosyn and Ceftriaxone. Leukocytosis slowly improving and WBC 19.1 today. She has been afebrile >48 hours. She endorses urgency today. No CVA tenderness. * Continue IV Ceftriaxone * Ledesma discontinued 07/01/19. (4) Pneumonia: Code(s): J18.9 - Pneumonia, unspecified organism Status: Acute Assessment and Plan: CXR 06/30 revealed probable pneumonia. Patient endorsed fever, shortness of breath and nonproductive cough. Previously hypoxic. She is maintaining adequate oxygenation on room air today. * Continue IV ceftriaxone * Continue PO azithromycin. Initiated on 07/01/19. * Continue acetaminophen prn fever * Continue albuterol MDI. * Continue Mucinex and Cornet (5) Acute kidney injury: Code(s): N17.9 - Acute kidney failure, unspecified Status: Acute Assessment and Plan: At presentation, Cr 1.6. Today, creatinine is 0.8. BUN is 15. KECIA be post-renal due to renal calculus or may be intra-renal due to infection. Urine output has improved and renal function has improved * Continue to monitor kidney function * Continue to hold HCTZ. * Resume lisinopril given resolution of KECIA * Continue gentle IV fluids * Renally dose medications and avoid nephrotoxic agents * Continue to monitor urine output (6) Acute respiratory failure with hypoxia: Code(s): J96.01 - Acute respiratory failure with hypoxia Status: Acute Assessment and Plan: Patient was previously hypoxic and requiring 10L O2 via simple face mask. Patient endorses SOB with exertion. Wheezing resolved. This may have been related to probable pneumonia. She is maintaining adequate oxygenation on room air today. * Continue to monitor oxygen saturation * Continue to wean O2 saturation to goal >92% * Continue albuterol MDI and incentive spirometer (7) Kidney stones: Code(s): N20.0 - Calculus of kidney Status: Acute Assessment and Plan:
--- NOTE | 2019-07-03 15:26 | PM.IMPN ---
Progress Note: A&P Assessment and Plan (1) Bacteremia: Code(s): R78.81 - Bacteremia Status: Acute Assessment and Plan: Blood cultures reveal Klebsiella pneumoniae with susceptibility to Zosyn and Ceftriaxone. This is most likely due to urinary source as urine culture also grew >100,000 CFU Klebsiella pneumoniae. Tmax 102.7F on 06/27. She has been afebrile >48 hours and no longer experiencing chills. WBC slowly trending down and is 19.1 today Continue IV Ceftriaxone based on susceptibility report. Initiated on 06/30/19. Zosyn discontinued on 06/29 IV fluids discontinued on 07/01 as patient improving and tolerating PO intake Plan to switch to oral abx in 1-2 days as leukocytosis continues to improve. Hopeful discharge tomorrow (2) Sepsis: Code(s): A41.9 - Sepsis, unspecified organism Status: Resolved Assessment and Plan: Patient became septic following endoscopic procedure on 06/27 evident by leukocytosis, tachycardia, and tachypnea. Source of infection likely urinary. WBC 19.1 today. Lactic initially elevated at 2.6 but is now wnl. Previously hypotensive but BP has stabilized.. Continue IV Ceftriaxone based on blood and urine culture susceptibility report IV fluids discontinued on 07/01 as patient is improving and tolerating PO intake Continue to monitor vitals watching closely for refractory hypotension. (3) Urinary tract infection: Code(s): N39.0 - Urinary tract infection, site not specified Status: Acute Assessment and Plan: Urine culture reveals >100,000 CFU Klebsiella pneumoniae with susceptibility to Zosyn and Ceftriaxone. Leukocytosis slowly improving and WBC 19.1 today. She has been afebrile >48 hours. She endorses urgency today. No CVA tenderness. Continue IV Ceftriaxone Ledesma discontinued 07/01/19. (4) Pneumonia: Code(s): J18.9 - Pneumonia, unspecified organism Status: Acute Assessment and Plan: CXR 06/30 revealed probable pneumonia. Patient endorsed fever, shortness of breath and nonproductive cough. Previously hypoxic. She is maintaining adequate oxygenation on room air today. Continue IV ceftriaxone Continue PO azithromycin. Initiated on 07/01/19. Continue acetaminophen prn fever Continue albuterol MDI. Continue Mucinex and Cornet (5) Acute kidney injury: Code(s): N17.9 - Acute kidney failure, unspecified Status: Acute Assessment and Plan: At presentation, Cr 1.6. Today, creatinine is 0.8. BUN is 15. KECIA be post-renal due to renal calculus or may be intra-renal due to infection. Urine output has improved and renal function has improved Continue to monitor kidney function Continue to hold HCTZ. Resume lisinopril given resolution of KECIA Continue gentle IV fluids Renally dose medications and avoid nephrotoxic agents Continue to monitor urine output (6) Acute respiratory failure with hypoxia: Code(s): J96.01 - Acute respiratory failure with hypoxia Status: Acute Assessment and Plan: Patient was previously hypoxic and requiring 10L O2 via simple face mask. Patient endorses SOB with exertion. Wheezing resolved. This may have been related to probable pneumonia. She is maintaining adequate oxygenation on room air today. Continue to monitor oxygen saturation Continue to wean O2 saturation to goal >92% Continue albuterol MDI and incentive spirometer (7) Kidney stones: Code(s): N20.0 - Calculus of kidney Status: Acute Assessment and Plan: Patient has bilateral ureteral stents placed 06/28/19. She has a history of kidney stones in the past. Continue to monitor. Urology is following and recommend stone removal at later date. Ledesma discontinued 06/30. (8) Essential hypertension: Code(s): I10 - Essential (primary) hypertension Status: Chronic Assessment and Plan: Blood pressure evaluated today and stable at 134/61. Jonh
[2019-07-03] MEDS: SACCHAROMYCES BOULARDII 250 MG CAPSULE PO (17:10)
[2019-07-03] MEDS: ONDANSETRON INJ 4 MG/2 ML VIAL IV PUSH (19:45)
[2019-07-03 20:52] VITALS: BP 143/58; PULSE 106; RESP 18; TEMP 37.1; O2SAT 92
[2019-07-04 05:51] VITALS: BP 149/75; PULSE 85; RESP 18; TEMP 37; O2SAT 91
[2019-07-04] MEDS: ALBUTEROL SULFATE (*SP) AEROSOL 1 PUFF 2 PUFF INHALATION ×4 (07:46→19:28)
[2019-07-04 07:50] VITALS: O2SAT 91
[2019-07-04 08:23] LABS: Basophils Absolute Auto 0.1 K/mm3 (0.0-0.1); Basophils Percent Auto 0.8 % (0.2-1.2); Eosinophils Absolute Auto 0.7 K/mm3 (0-0.3); Eosinophils Percent Auto 3.6 % (0-4.4); Hematocrit 30.4 % (37.0-47.0); Hemoglobin 10.1 g/dL (12.0-15.0); Immature Granulocyte Absolute 1.87 K/mm3 (0.00-0.031); Immature Granulocyte Percent A 10.3 % (0-0.5); Lymphocytes Absolute Auto 1.98 K/mm3 (0.9-3.2); Mean Corpuscular HGB Conc 33.2 g/dl (32-36); Mean Corpuscular Hemoglobin 28.3 pg (26-34); Mean Corpuscular Volume 85.2 fl (80-100); Mean Platelet Volume 10.5 fl (7.4-10.4); Monocytes Absolute Auto 2.1 K/mm3 (0.1-0.6); Monocytes Percent Auto 11.5 % (2.6-8.5); Neutrophils Absolute Auto 11.4 K/mm3 (1.3-6.7); Neutrophils Percent Auto 62.8 % (45.5-73.1); Nucleated Red Blood Cells Perc 0.2 % (0.0-0.2); Platelet Count Result 381 k/mm3 (150-375); Red Blood Count 3.57 M/mm3 (4.2-5.4); Red Cell Distribution Width 13.9 % (11.5-14.5); White Blood Count 18.1 K/mm3 (4.5-10.0)
[2019-07-04] MEDS: FENOFIBRATE 160 MG TABLET PO (08:23)
[2019-07-04] MEDS: AZITHROMYCIN 250 MG TABLET PO (08:23)
[2019-07-04] MEDS: ACYCLOVIR 5% OINTMENT 15 GM TUBE 1 APPLIC TOPICAL ×3 (08:23→17:12)
[2019-07-04] MEDS: lisinopriL 20 MG TABLET PO (08:23)
[2019-07-04] MEDS: SACCHAROMYCES BOULARDII 250 MG CAPSULE PO ×2 (08:24→17:12)
[2019-07-04] MEDS: OXYBUTYNIN CHLORIDE 5 MG TABLET PO ×3 (08:24→17:12)
[2019-07-04 08:28] LABS: Alanine Aminotransferase 23 U/L (4-35); Albumin Level 3.3 g/dL (3.5-5.1); Alkaline Phosphatase 98 U/L (38-126); Aspartate Amino Transferase 35 U/L (14-36); Bilirubin,Total 0.4 mg/dL (0.2-1.3); Blood Urea Nitrogen 12 mg/dL (7-17); Carbon Dioxide 26 mmol/L (22-30); Chloride 104 mmol/L (98-107); Estimated CRCL calculation 59 ml/min; Estimated Glomerular Filt Rate > 60; Glucose 92 mg/dL (65-105); Potassium 3.8 mmol/L (3.4-5.0); Sodium 136 mmol/L (137-145)
--- NOTE | 2019-07-04 12:23 | WPDUROPN2 ---
Progress Note: A&P Assessment and Plan (1) Urinary tract infection: Code(s): N39.0 - Urinary tract infection, site not specified Status: Acute Assessment and Plan: cont with IV abx one more day given pos Klebsiella bld Cx, WBC 18 down from 19 switch to oral agent tomorrow and discharge (2) Bilateral hydronephrosis: Code(s): N13.30 - Unspecified hydronephrosis Status: Acute Assessment and Plan: s/p bilat stent placement f/u with Dr. Millan for stent and stone management Subjective Subjective Date/Time Seen: 07/04/19 12:23 Pt feeling better today, voiding well, afeb Exam Resp: Effort & Inspection: normal respiratory effort GI: Inspection: normal to inspection Objective Data Vital Signs Vital Signs: Vital Signs - 24 hr 07/03/19 14:00 07/03/19 20:52 07/04/19 05:51 Temperature 36.8 C 37.1 C 37.0 C Pulse Rate 68 106 H 85 Respiratory Rate 18 18 18 Blood Pressure 142/68 H 143/58 H 149/75 H Pulse Oximetry 98 92 91 07/04/19 07:50 Temperature Pulse Rate Respiratory Rate Blood Pressure Pulse Oximetry 91 Intake/Output Intake/Output: Intake & Output 07/01/19 07/02/19 07/03/19 07/04/19 23:59 23:59 23:59 23:59 Intake Total 2940 3182 2790 1080 Output Total 1200 1500 3050 1000 Balance 1740 1682 -260 80 Meds/Results Medications: Active Medications Generic Name Dose Route Start Last Admin Trade Name Freq PRN Reason Stop Dose Admin Acetaminophen 650 mg 06/29/19 13:33 06/30/19 20:20 Tylenol Tablet PO 650 mg Q4H PRN Administration Mild pain 1-3, Headache Acyclovir 1 applic 07/02/19 18:00 07/04/19 12:09 Zovirax Ointment TOPICAL 1 applic 5 TIMES DAILY ROMEL Administration Albuterol 2 puff 07/01/19 16:00 07/04/19 07:46 Proventil Hfa INHALATION 2 puff QIDRT ROMEL Administration Azithromycin 250 mg 07/02/19 09:00 07/04/19 08:23 Zithromax Tablet PO 07/05/19 09:01 250 mg DAILY ROMEL Administration Docusate Sodium 100 mg 07/02/19 09:27 Colace Capsule PO Q12HR PRN constipation Fenofibrate 160 mg 06/29/19 09:00 07/04/19 08:23 Fenofibrate PO 160 mg DAILY ROMEL Administration Guaifenesin 600 mg 06/29/19 21:00 07/04/19 08:23 Mucinex 12 Hr Tab PO 600 mg Q12HR ROMEL Administration Ceftriaxone Sodium/Dextrose 1 gm in 50 mls @ 100 mls/hr 06/30/19 09:00 07/04/19 08:50 Rocephin 1 Gm/D5w 50 Ml IVPB Infused Q24H ROMEL Infusion Lisinopril 20 mg 07/03/19 09:00 07/04/19 08:23 Prinivil PO 20 mg DAILY ROMEL Administration Melatonin 3 mg 06/28/19 20:14 06/29/19 20:14 Melatonin PO 3 mg HS PRN Administration Insomnia Ondansetron HCl 4 mg 06/29/19 09:56 07/03/19 19:45 Zofran Inj IV PUSH 4 mg Q4H PRN Administration Nausea And Vomiting Oxybutynin Chloride 5 mg 06/28/19 13:00 07/04/19 12:09 Ditropan PO 5 mg TID ROMEL Administration Psyllium Hydrophilic Mucilloid 1 packet 06/29/19 09:00 07/04/19 08:19 Metamucil Packet PO Not Given DAILY [facility] Saccharomyces Boulardii 250 mg 07/03/19 17:00 07/04/19 08:24 Florastor PO 250 mg BID ROMEL Administration Radiology Results: ITS Impressions Abdomen/Pelvis CT 06/28/19 07:36 IMPRESSION: 1. 2 mm and 4 mm stones in proximal left ureter with mild left hydronephrosis and hydroureter. 2. Bilateral nonobstructing kidney stones. 3. Mild hydronephrosis and proximal hydroureter involving right kidney inferior pole with interval improvement after stone removal. Retrograde Pyelogram 06/28/19 15:09 IMPRESSION: Fluoroscopy used during XR retrograde pyelo w/stent BI. Chest X-Ray 06/30/19 15:34 Impression: 1: Persistent patchy bilateral airspace disease, compatible with pneumonia. Labs Labs: Laboratory Results - last 24 hr 07/04/19 07/04/19 07:37 07:37 WBC 18.1 H RBC 3.57 L Hgb 10.1 L Hct 30.4 L MCV 85.2 MCH 28.3 MCHC 33.2 RDW 13.9 Plt
[2019-07-04 14:00] VITALS: BP 155/68; PULSE 91; RESP 18; TEMP 37.3; O2SAT 97
--- NOTE | 2019-07-04 15:11 | P.PNIM_ITS ---
Progress Note: A&P Assessment and Plan (1) Bacteremia: Code(s): R78.81 - Bacteremia Status: Acute Assessment and Plan: Blood cultures reveal Klebsiella pneumoniae with susceptibility to Zosyn and Ceftriaxone. This is most likely due to urinary source as urine culture also grew >100,000 CFU Klebsiella pneumoniae. Tmax 102.7F on 06/27. She has been afebrile >48 hours and no longer experiencing chills. WBC slowly trending down and is 18.1 today * Continue IV Ceftriaxone based on susceptibility report. Initiated on 06/30/19. * Zosyn discontinued on 06/29 * IV fluids discontinued on 07/01 as patient improving and tolerating PO intake * Plan to switch to oral abx in 1-2 days as leukocytosis continues to improve. Will need to continue to complete a total of 10 days of antibiotic therapy * Hopeful discharge tomorrow (2) Sepsis: Code(s): A41.9 - Sepsis, unspecified organism Status: Resolved Assessment and Plan: Patient became septic following endoscopic procedure on 06/27 evident by leukocytosis, tachycardia, and tachypnea. Source of infection likely urinary. WBC 18.1 today. Lactic initially elevated at 2.6 but is now wnl. Previously hypotensive but BP has stabilized.. * Continue IV Ceftriaxone based on blood and urine culture susceptibility report * IV fluids discontinued on 07/01 as patient is improving and tolerating PO intake * Continue to monitor vitals watching closely for refractory hypotension. (3) Urinary tract infection: Code(s): N39.0 - Urinary tract infection, site not specified Status: Acute Assessment and Plan: Urine culture reveals >100,000 CFU Klebsiella pneumoniae with susceptibility to Zosyn and Ceftriaxone. Leukocytosis slowly improving and WBC 18.1 today. She has been afebrile >48 hours. No CVA tenderness. * Continue IV Ceftriaxone * Ledesma discontinued 07/01/19. (4) Pneumonia: Code(s): J18.9 - Pneumonia, unspecified organism Status: Acute Assessment and Plan: CXR 06/30 revealed probable pneumonia. Patient endorsed fever, shortness of breath and nonproductive cough. Previously hypoxic. She is maintaining adequate oxygenation on room air today. * Continue IV ceftriaxone * Continue PO azithromycin. Initiated on 07/01/19. Last dose tomorrow to complete 5 days of therapy. * Continue acetaminophen prn fever. Afebrile >72 hours * Continue albuterol MDI. * Continue Mucinex and Cornet (5) Acute kidney injury: Code(s): N17.9 - Acute kidney failure, unspecified Status: Acute Assessment and Plan: At presentation, Cr 1.6. Today, creatinine is 0.9. BUN is 12. KECIA may be post- renal due to renal calculus. Urine output has improved and renal function has improved * Continue to monitor kidney function * Resume lisinopril and HCTZ given resolution of KECIA * Renally dose medications and avoid nephrotoxic agents * Continue to monitor urine output (6) Acute respiratory failure with hypoxia: Code(s): J96.01 - Acute respiratory failure with hypoxia Status: Acute Assessment and Plan: Patient was previously hypoxic and requiring 10L O2 via simple face mask. Patient endorses SOB with exertion. Wheezing resolved. Likely related to probable pneumonia. She is maintaining adequate oxygenation on room air today. * Continue to monitor oxygen saturation * Continue albuterol MDI and incentive spirometer (7) Kidney stones: Code(s): N20.0 - Calculus of kidney Status: Acute Assessment and Plan: Patient has bilateral urete
--- NOTE | 2019-07-04 15:11 | PM.IMPN ---
Progress Note: A&P Assessment and Plan (1) Bacteremia: Code(s): R78.81 - Bacteremia Status: Acute Assessment and Plan: Blood cultures reveal Klebsiella pneumoniae with susceptibility to Zosyn and Ceftriaxone. This is most likely due to urinary source as urine culture also grew >100,000 CFU Klebsiella pneumoniae. Tmax 102.7F on 06/27. She has been afebrile >48 hours and no longer experiencing chills. WBC slowly trending down and is 18.1 today Continue IV Ceftriaxone based on susceptibility report. Initiated on 06/30/19. Zosyn discontinued on 06/29 IV fluids discontinued on 07/01 as patient improving and tolerating PO intake Plan to switch to oral abx in 1-2 days as leukocytosis continues to improve. Will need to continue to complete a total of 10 days of antibiotic therapy Hopeful discharge tomorrow (2) Sepsis: Code(s): A41.9 - Sepsis, unspecified organism Status: Resolved Assessment and Plan: Patient became septic following endoscopic procedure on 06/27 evident by leukocytosis, tachycardia, and tachypnea. Source of infection likely urinary. WBC 18.1 today. Lactic initially elevated at 2.6 but is now wnl. Previously hypotensive but BP has stabilized.. Continue IV Ceftriaxone based on blood and urine culture susceptibility report IV fluids discontinued on 07/01 as patient is improving and tolerating PO intake Continue to monitor vitals watching closely for refractory hypotension. (3) Urinary tract infection: Code(s): N39.0 - Urinary tract infection, site not specified Status: Acute Assessment and Plan: Urine culture reveals >100,000 CFU Klebsiella pneumoniae with susceptibility to Zosyn and Ceftriaxone. Leukocytosis slowly improving and WBC 18.1 today. She has been afebrile >48 hours. No CVA tenderness. Continue IV Ceftriaxone Ledesma discontinued 07/01/19. (4) Pneumonia: Code(s): J18.9 - Pneumonia, unspecified organism Status: Acute Assessment and Plan: CXR 06/30 revealed probable pneumonia. Patient endorsed fever, shortness of breath and nonproductive cough. Previously hypoxic. She is maintaining adequate oxygenation on room air today. Continue IV ceftriaxone Continue PO azithromycin. Initiated on 07/01/19. Last dose tomorrow to complete 5 days of therapy. Continue acetaminophen prn fever. Afebrile >72 hours Continue albuterol MDI. Continue Mucinex and Cornet (5) Acute kidney injury: Code(s): N17.9 - Acute kidney failure, unspecified Status: Acute Assessment and Plan: At presentation, Cr 1.6. Today, creatinine is 0.9. BUN is 12. KECIA may be post-renal due to renal calculus. Urine output has improved and renal function has improved Continue to monitor kidney function Resume lisinopril and HCTZ given resolution of KECIA Renally dose medications and avoid nephrotoxic agents Continue to monitor urine output (6) Acute respiratory failure with hypoxia: Code(s): J96.01 - Acute respiratory failure with hypoxia Status: Acute Assessment and Plan: Patient was previously hypoxic and requiring 10L O2 via simple face mask. Patient endorses SOB with exertion. Wheezing resolved. Likely related to probable pneumonia. She is maintaining adequate oxygenation on room air today. Continue to monitor oxygen saturation Continue albuterol MDI and incentive spirometer (7) Kidney stones: Code(s): N20.0 - Calculus of kidney Status: Acute Assessment and Plan: Patient has bilateral ureteral stents placed 06/28/19. She has a history of kidney stones in the past. Continue to monitor. Urology is following and recommend stone removal at later date. Ledesma discontinued 06/30. Consider reduction in dose or cessation of oxybutynin due to xerostomia. (8) Xerostomia: Code(s): R68.2 - Dry mouth, unspecified Status: Acute Assessment and Plan: Endorsing severe dry m
[2019-07-04 19:30] VITALS: O2SAT 94
[2019-07-04 20:00] VITALS: PULSE 91; RESP 18; O2SAT 94
[2019-07-04 22:00] VITALS: BP 160/59; PULSE 85; RESP 18; TEMP 36.9; O2SAT 96
[2019-07-05 05:42] LABS: Hematocrit 29.1 % (37.0-47.0); Hemoglobin 9.8 g/dL (12.0-15.0); Mean Corpuscular HGB Conc 33.7 g/dl (32-36); Mean Corpuscular Hemoglobin 28.6 pg (26-34); Mean Corpuscular Volume 84.8 fl (80-100); Mean Platelet Volume 10.4 fl (7.4-10.4); Platelet Count Result 386 k/mm3 (150-375); Red Blood Count 3.43 M/mm3 (4.2-5.4); White Blood Count 16.5 K/mm3 (4.5-10.0)
[2019-07-05 06:00] VITALS: BP 148/72; PULSE 70; RESP 18; TEMP 36.8; O2SAT 96
[2019-07-05 06:01] LABS: Blood Urea Nitrogen 10 mg/dL (7-17); Carbon Dioxide 25 mmol/L (22-30); Chloride 106 mmol/L (98-107); Estimated CRCL calculation 59 ml/min; Estimated Glomerular Filt Rate > 60; Glucose 102 mg/dL (65-105); Potassium 3.7 mmol/L (3.4-5.0); Sodium 136 mmol/L (137-145)
--- NOTE | 2019-07-05 07:58 | WPDUROPN2 ---
Progress Note: A&P Assessment and Plan (1) Xerostomia: Code(s): R68.2 - Dry mouth, unspecified Status: Acute Assessment and Plan: oxybutynin has been stopped. She does not have much in the way of stent discomfort. (2) Urinary tract infection: Code(s): N39.0 - Urinary tract infection, site not specified Status: Acute Assessment and Plan: Should complete another week of Levaquin. Is stable for discharge home from a urology standpoint. (3) Left ureteral calculus: Code(s): N20.1 - Calculus of ureter Status: Acute Assessment and Plan: I will call to arrange outpatient stone management. Subjective Subjective Date/Time Seen: 07/05/19 07:58 complains of a dry mouth. I will stop her oxybutynin. Also has a cough. This is managed by the Medicine Service. She is on her last dose of azithromycin. She is stable for discharge home from a urologic standpoint. Will call to arrange outpatient stone management. Review of Systems Respiratory: Respiratory: Reports cough Genitourinary: Genitourinary: Reports no additional female genitourinary complaints Exam Const: General: no acute distress HENMT: Mouth: Yes dry mucous membranes Resp: Other: Cough noted Extrem: General: normal to inspection Psych: Mental Status: mental status grossly normal Objective Data Vital Signs Vital Signs: Vital Signs - 24 hr 07/04/19 14:00 07/04/19 19:30 07/04/19 20:00 Temperature 99.1 F Pulse Rate 91 91 Respiratory Rate 18 18 Blood Pressure 155/68 H Pulse Oximetry 97 94 94 07/04/19 22:00 07/05/19 06:00 Temperature 98.5 F 98.3 F Pulse Rate 85 70 Respiratory Rate 18 18 Blood Pressure 160/59 H 148/72 H Pulse Oximetry 96 96 Intake/Output Intake/Output: Intake & Output 07/02/19 07/03/19 07/04/19 07/05/19 23:59 23:59 23:59 23:59 Intake Total 3182 2790 2660 950 Output Total 1500 3050 2400 950 Balance 1682 -260 260 0 Meds/Results Medications: Active Medications Generic Name Dose Route Start Last Admin Trade Name Freq PRN Reason Stop Dose Admin Acetaminophen 650 mg 06/29/19 13:33 06/30/19 20:20 Tylenol Tablet PO 650 mg Q4H PRN Administration Mild pain 1-3, Headache Acyclovir 1 applic 07/02/19 18:00 07/04/19 21:00 Zovirax Ointment TOPICAL Not Given 5 TIMES DAILY [facility] Albuterol 2 puff 07/01/19 16:00 07/04/19 19:28 Proventil Hfa INHALATION 2 puff QIDRT [facility] Administration Azithromycin 250 mg 07/02/19 09:00 07/04/19 08:23 Zithromax Tablet PO 07/05/19 09:01 250 mg DAILY [facility] Administration Docusate Sodium 100 mg 07/02/19 09:27 Colace Capsule PO Q12HR PRN constipation Fenofibrate 160 mg 06/29/19 09:00 07/04/19 08:23 Fenofibrate PO 160 mg DAILY [facility] Administration Guaifenesin 600 mg 06/29/19 21:00 07/04/19 21:04 Mucinex 12 Hr Tab PO 600 mg Q12HR [facility] Administration Ceftriaxone Sodium/Dextrose 1 gm in 50 mls @ 100 mls/hr 06/30/19 09:00 07/04/19 08:50 Rocephin 1 Gm/D5w 50 Ml IVPB Infused Q24H [facility] Infusion Lisinopril 20 mg 07/03/19 09:00 07/04/19 08:23 Prinivil PO 20 mg DAILY [facility] Administration Melatonin 3 mg 06/28/19 20:14 06/29/19 20:14 Melatonin PO 3 mg HS PRN Administration Insomnia Ondansetron HCl 4 mg 06/29/19 09:56 07/03/19 19:45 Zofran Inj IV PUSH 4 mg Q4H PRN Administration Nausea And Vomiting Psyllium Hydrophilic Mucilloid 1 packet 06/29/19 09:00 07/04/19 08:19 Metamucil Packet PO Not Given DAILY [facility] Saccharomyces Boulardii 250 mg 07/03/19 17:00 07/04/19 17:12 Florastor PO 250 mg BID [facility] Administration Radiology Results: ITS Impressions Abdomen/Pelvis CT 06/28/19 07:36 IMPRESSION: 1. 2 mm and 4 mm stones in proximal left ureter with mild left hydronephrosis and hydroureter. 2. Bilateral nonobstructing kidney stones. 3. Mild hydronephrosis and proximal hydroureter i
[2019-07-05] MEDS: ONDANSETRON INJ 4 MG/2 ML VIAL IV PUSH (08:07)
[2019-07-05] MEDS: lisinopriL 20 MG TABLET PO (08:09)
[2019-07-05] MEDS: SACCHAROMYCES BOULARDII 250 MG CAPSULE PO (08:10)
[2019-07-05] MEDS: FENOFIBRATE 160 MG TABLET PO (08:10)
[2019-07-05] MEDS: AZITHROMYCIN 250 MG TABLET PO (08:11)
[2019-07-05 08:19] VITALS: PULSE 76; RESP 18; O2SAT 96
[2019-07-05] MEDS: ACYCLOVIR 5% OINTMENT 15 GM TUBE 1 APPLIC TOPICAL ×2 (08:19→11:33)
[2019-07-05] MEDS: ALBUTEROL SULFATE (*SP) AEROSOL 1 PUFF 2 PUFF INHALATION ×2 (08:30→11:18)
--- NOTE | 2019-07-05 11:41 | PM.IMPN ---
Progress Note: A&P Assessment and Plan (1) Bacteremia: Code(s): R78.81 - Bacteremia Status: Acute Assessment and Plan: Blood cultures reveal Klebsiella pneumoniae with susceptibility to Zosyn and Ceftriaxone. This is most likely due to urinary source as urine culture also grew >100,000 CFU Klebsiella pneumoniae. Tmax 102.7F on 06/27. She has been afebrile >72 hours and no longer experiencing chills. WBC slowly trending down and is 16.5 today Begin 500 mg PO Levaquin and continue for 8 days to complete a 14 day course of abx. Discontinue IV Ceftriaxone. Initiated on 06/30/19. Zosyn discontinued on 06/29 IV fluids discontinued on 07/01 as patient improving and tolerating PO intake Stable for discharge today from hospitalist standpoint. (2) Sepsis: Code(s): A41.9 - Sepsis, unspecified organism Status: Resolved Assessment and Plan: Patient became septic following endoscopic procedure on 06/27 evident by leukocytosis, tachycardia, and tachypnea. Source of infection likely urinary. WBC 16.5 today. Lactic initially elevated at 2.6 but is now wnl. Previously hypotensive but BP has stabilized.. Dc Ceftriaxone. Continue Levaquin as above IV fluids discontinued on 07/01 as patient is improving and tolerating PO intake (3) Urinary tract infection: Code(s): N39.0 - Urinary tract infection, site not specified Status: Acute Assessment and Plan: Urine culture reveals >100,000 CFU Klebsiella pneumoniae with susceptibility to Zosyn and Ceftriaxone. Leukocytosis slowly improving and WBC 16.5 today. She has been afebrile >72 hours. No CVA tenderness. Dc Ceftriaxone, continue Levaquine Ledesma discontinued 07/01/19. Urinating without difficulty. No dysuria, hematuria, or CVA tenderness (4) Pneumonia: Code(s): J18.9 - Pneumonia, unspecified organism Status: Acute Assessment and Plan: CXR 06/30 revealed probable pneumonia. Patient endorsed fever, shortness of breath and nonproductive cough. Previously hypoxic. She is maintaining adequate oxygenation on room air today. Disontinue IV ceftriaxone Completed 5 days of PO Azithromycin today May continue Mucinex and Cornet as outpatient (5) Acute kidney injury: Code(s): N17.9 - Acute kidney failure, unspecified Status: Acute Assessment and Plan: At presentation, Cr 1.6. Today, creatinine is 0.9. BUN is 10. KECIA may be post-renal due to renal calculus. Urine output has improved and renal function has improved Continue lisinopril and HCTZ given resolution of KECIA Renally dose medications and avoid nephrotoxic agents (6) Acute respiratory failure with hypoxia: Code(s): J96.01 - Acute respiratory failure with hypoxia Status: Acute Assessment and Plan: Patient was previously hypoxic and requiring 10L O2 via simple face mask. Patient previously endorsed SOB with exertion. Wheezing resolved. Likely related to probable pneumonia. She is maintaining adequate oxygenation on room air today. Stable for discharge from hospitalist standpoint. No further intervention required (7) Kidney stones: Code(s): N20.0 - Calculus of kidney Status: Acute Assessment and Plan: Patient has bilateral ureteral stents placed 06/28/19. She has a history of kidney stones in the past. Urology is following and recommend stone removal at later date. Ledesma discontinued 06/30. Oxybutynin dc due to xerostomia. She denies discomfort related to stents (8) Xerostomia: Code(s): R68.2 - Dry mouth, unspecified Status: Acute Assessment and Plan: Endorsing severe dry mouth causing difficulty eating. She is on oxybutynin presumably for kidney stone, which is likely the source of xerostomia given anticholinergic properties. Oxybutynin discontinued today Chewing sugar free gum or sucking sugar free lemon candies may relieve symptoms Maintain adequate PO
--- NOTE | 2019-07-05 11:42 | WPDUROPN2 ---
Objective Data Vital Signs Vital Signs: Vital Signs - 24 hr 07/04/19 14:00 07/04/19 19:30 07/04/19 20:00 Temperature 99.1 F Pulse Rate 91 91 Respiratory Rate 18 18 Blood Pressure 155/68 H Pulse Oximetry 97 94 94 07/04/19 22:00 07/05/19 06:00 07/05/19 08:19 Temperature 98.5 F 98.3 F Pulse Rate 85 70 76 Respiratory Rate 18 18 18 Blood Pressure 160/59 H 148/72 H Pulse Oximetry 96 96 96 Intake/Output Intake/Output: Intake & Output 07/02/19 07/03/19 07/04/19 07/05/19 23:59 23:59 23:59 23:59 Intake Total 3182 2790 2660 1000 Output Total 1500 3050 2400 1250 Balance 1682 -260 260 -250 Meds/Results Medications: Active Medications Generic Name Dose Route Start Last Admin Trade Name Freq PRN Reason Stop Dose Admin Acetaminophen 650 mg 06/29/19 13:33 06/30/19 20:20 Tylenol Tablet PO 650 mg Q4H PRN Administration Mild pain 1-3, Headache Acyclovir 1 applic 07/02/19 18:00 07/05/19 11:33 Zovirax Ointment TOPICAL 1 applic 5 TIMES DAILY [facility] Administration Albuterol 2 puff 07/01/19 16:00 07/05/19 11:18 Proventil Hfa INHALATION 2 puff QIDRT [facility] Administration Docusate Sodium 100 mg 07/02/19 09:27 Colace Capsule PO Q12HR PRN constipation Fenofibrate 160 mg 06/29/19 09:00 07/05/19 08:10 Fenofibrate PO 160 mg DAILY [facility] Administration Guaifenesin 600 mg 06/29/19 21:00 07/05/19 08:12 Mucinex 12 Hr Tab PO 600 mg Q12HR [facility] Administration Levofloxacin 500 mg 07/05/19 09:00 07/05/19 09:36 Levaquin Tab BY MOUTH 08/04/19 09:01 500 mg DAILY [facility] Administration Lisinopril 20 mg 07/03/19 09:00 07/05/19 08:09 Prinivil PO 20 mg DAILY [facility] Administration Melatonin 3 mg 06/28/19 20:14 06/29/19 20:14 Melatonin PO 3 mg HS PRN Administration Insomnia Ondansetron HCl 4 mg 06/29/19 09:56 07/05/19 08:07 Zofran Inj IV PUSH 4 mg Q4H PRN Administration Nausea And Vomiting Psyllium Hydrophilic Mucilloid 1 packet 06/29/19 09:00 07/05/19 08:19 Metamucil Packet PO Not Given DAILY [facility] Saccharomyces Boulardii 250 mg 07/03/19 17:00 07/05/19 08:10 Florastor PO 250 mg BID [facility] Administration Radiology Results: ITS Impressions Abdomen/Pelvis CT 06/28/19 07:36 IMPRESSION: 1. 2 mm and 4 mm stones in proximal left ureter with mild left hydronephrosis and hydroureter. 2. Bilateral nonobstructing kidney stones. 3. Mild hydronephrosis and proximal hydroureter involving right kidney inferior pole with interval improvement after stone removal. Retrograde Pyelogram 06/28/19 15:09 IMPRESSION: Fluoroscopy used during XR retrograde pyelo w/stent BI. Chest X-Ray 06/30/19 15:34 Impression: 1: Persistent patchy bilateral airspace disease, compatible with pneumonia. Labs Labs: Laboratory Results - last 24 hr 07/05/19 07/05/19 05:14 05:14 WBC 16.5 H RBC 3.43 L Hgb 9.8 L Hct 29.1 L MCV 84.8 MCH 28.6 MCHC 33.7 RDW 14.0 Plt Count 386 H MPV 10.4 Sodium 136 L Potassium 3.7 Chloride 106 Carbon Dioxide 25 BUN 10 Creatinine 0.90 Estim Creat Clear Calc 59 Estimated GFR > 60 Glucose 102 Calcium 9.0 Quality VTE Prophylaxis VTE prophylaxis: mechanical ordered
--- NOTE | 2019-07-05 11:56 | PM.DS ---
DS: Diagnosis Admitting Diagnosis Admitting Diagnosis: Calculus of ureter DS: Summary Time Spent with Patient Time attestation: Total time spent providing and/or coordinating discharge services: 20 minutes patient presented to the hospital 1 week ago with left ureteral stone. She had signs of a possible urinary tract infection. She was taken to the operating room where a stent was placed. In the preoperative area she was febrile up to 104 and sewed signs of sepsis. She was admitted postoperatively for antibiotics. Ledesma catheter is left in place. Her white count was very high on admission. She was kept in the hospital for 1 week. Her white count slowly declined over this. She regains strength. She was also treated for a low-level pneumonia with azithromycin. She completed that course before discharge. On the day of discharge she was sent home stable condition. The stent is in place. Ledesma catheter is been removed. She will follow up as an outpatient for definitive stone management I discussed this with the hospitaliist team as well. They are comfortable with discharge. Exam Const: General: no acute distress HENMT: Mouth: Yes moist mucous membranes Eyes: General: appearance normal, both eyes and all related structures Resp: Effort & Inspection: normal respiratory effort Neuro: Motor exam (neuro): Normal motor muscle tone present throughout Extrem: General: normal to inspection Psych: Mental Status: mental status grossly normal DS: Data Data Completed and Pending Labs on day of discharge: Labs from last 24 hours 07/05/19 07/05/19 05:14 05:14 WBC 16.5 H RBC 3.43 L Hgb 9.8 L Hct 29.1 L MCV 84.8 MCH 28.6 MCHC 33.7 RDW 14.0 Plt Count 386 H MPV 10.4 Sodium 136 L Potassium 3.7 Chloride 106 Carbon Dioxide 25 BUN 10 Creatinine 0.90 Estim Creat Clear Calc 59 Estimated GFR > 60 Glucose 102 Calcium 9.0 Discharge Plan Discharge Attending physician on discharge: Gerson Millan Consulting providers: Shanna Nixon Discharging Clinician: Gerson Millan Anticipated Discharge Date/Time: 07/05/19 11:07 Patient Disposition: Home, Self-Care Activity: as tolerated Diet: as tolerated Discharge Instructions: Hospitalist Discharge Instructions: You will need to continue taking an antibiotic called Levaquin for 8 days. It is important that you take the entire course of antibiotic, even if you begin to feel better. You can take a probiotic to help with antibiotic associated diarrhea. You have been treated for pneumonia. You can continue to use the Cornet device to help you cough more easily. You may take Mucinex for cough, as well. You have been scheduled for a follow up appointment with Dr. Brandi Clark on 07/13/19 at 10:45 am to discuss your hospital stay. Please attend this appointment. You will need to follow up with urology. Dr. Millan will call to schedule follow up. It is important that you stay hydrated. Sugar free gum or lemon candies may help your dry mouth. You should call your doctor or seek medical care if you experience fever, chills, nausea, vomiting, belly pain, pain with urination, blood in your urine, or worsening cough. Go to the ER if you develop worsening shortness of breath or chest pain. Patient Instructions: Antibiotic Form, Azithromycin (By mouth), Ceftriaxone (By injection), Pneumonia (DC), Cystoscopy (DC), Ureteral Stent Placement (DC) Stand Alone Forms: General Discharge Information Follow-up/Referrals: Brandi Clark MD [Primary Care Provider] - 07/13/19 10:45 am Discharge Medications: New Saccharomyces boulardii [Florastor] 250 mg Capsule 250 mg PO BID Qty: 20 RF: 0 levofloxacin 500 mg Tablet 500 mg BYMOUTH DAILY Qty: 8 RF: 0 Continued aspirin 81 mg tablet,delayed release (DR/EC) 81 mg PO DAILY RF: 0 Hold Instructions: Resume on 06/06/19. psyllanh tellez [M
--- NOTE | 2019-07-09 12:55 | P.DS_ITS ---
DS: Diagnosis Admitting Diagnosis Admitting Diagnosis: Other Gram-negative sepsis DS: Summary Time Spent with Patient Time attestation: Total time spent providing and/or coordinating discharge services: Discharge Plan Discharge Attending physician on discharge: Gerson Millan Consulting providers: Shanna Nixon ; Darren Garrison ; Cheyenne Parham ; Estrada Joseph V. ; Alberto Kamara ; Arnie Dial ; John Paul ; Kelby Jane ; Silverio Newell Discharging Clinician: Gerson Millan Anticipated Discharge Date/Time: 07/05/19 11:07 Patient Disposition: Home, Self-Care Activity: as tolerated Diet: as tolerated Discharge Instructions: Hospitalist Discharge Instructions: * You will need to continue taking an antibiotic called Levaquin for 8 days. It is important that you take the entire course of antibiotic, even if you begin to feel better. * You can take a probiotic to help with antibiotic associated diarrhea. * You have been treated for pneumonia. You can continue to use the Cornet device to help you cough more easily. You may take Mucinex for cough, as well. * You have been scheduled for a follow up appointment with Dr. Brandi Clark on 07/13/19 at 10:45 am to discuss your hospital stay. Please attend this appointment. * You will need to follow up with urology. Dr. Millan will call to schedule follow up. * It is important that you stay hydrated. Sugar free gum or lemon candies may help your dry mouth. * You should call your doctor or seek medical care if you experience fever, chills, nausea, vomiting, belly pain, pain with urination, blood in your urine, or worsening cough. Go to the ER if you develop worsening shortness of breath or chest pain. Patient Instructions: Antibiotic Form, Azithromycin (By mouth), Ceftriaxone (By injection), Pneumonia (DC), Cystoscopy (DC), Ureteral Stent Placement (DC) Stand Alone Forms: General Discharge Information Follow-up/Referrals: Brandi Clark MD [Primary Care Provider] - 07/13/19 10:45 am Discharge Medications: New levofloxacin 500 mg Tablet 500 mg BYMOUTH DAILY Qty: 8 RF: 0 Saccharomyces boulardii [Florastor] 250 mg Capsule 250 mg PO BID Qty: 20 RF: 0 Continued aspirin 81 mg tablet,delayed release (DR/EC) 81 mg PO DAILY RF: 0 Hold Instructions: Resume on 06/06/19. psyllium husk [Metamucil] 0.4 gram Capsule 0.4 g PO DAILY RF: 0 cholecalciferol (vitamin D3) [Vitamin D3] 50 mcg (2,000 unit) Capsule 50 mcg PO DAILY RF: 0 hydrochlorothiazide 25 mg tablet 25 mg PO DAILY Qty: 90 RF: 1 lisinopril 20 mg tablet 20 mg PO DAILY Qty: 90 RF: 1 fenofibrate 160 mg tablet 160 mg PO DAILY Qty: 90 RF: 3 Other Ambulatory Orders: Complete Blood Count with Diff (Routine) Timeframe: [id number] Location: Determined by Patient Ordered By: Shanna Nixon Date of admission: 06/29/19 11:16 Primary Care Provider: Brandi Clark Admitting Provider: Gerson Millan Discharge Date/Time: 07/05/19 13:25 Attending physician on admission: Gerson Millan Condition: Stable Quality VTE Prophylaxis VTE prophylaxis: mechanical ordered
== END 2019-07-05 13:25 | disposition home or self-care (01) | DRG 853 ==
LOC: ANHED 08:53 → ANHSURGERY 09:01 → ANH3MED 12:22
PROVIDERS: Family Medicine; Nurse Practitioner; Physician Assistant; Admitting Provider Urology; Emergency Provider Emergency Medicine; PCP Family Medicine; Visit Provider Urology
PROC: 0T788DZ Dilation of Bilateral Ureters with Intraluminal Device, Via Natural or Artificial Opening Endoscopic (ICD-10-PCS; CPT 52352; principal; 2019-06-28 09:30)
DX: A41.59 Other Gram-negative sepsis (principal); J96.01 Acute respiratory failure with hypoxia; J18.9 Pneumonia, unspecified organism; N13.6 Pyonephrosis; N17.9 Acute kidney failure, unspecified; B96.1 Klebsiella pneumoniae [K. pneumoniae] as the cause of diseases classified elsewhere; I10 Essential (primary) hypertension; E78.2 Mixed hyperlipidemia; E66.9 Obesity, unspecified; Z68.33 Body mass index [BMI] 33.0-33.9, adult; R68.2 Dry mouth, unspecified; T44.3X5A Adverse effect of other parasympatholytics [anticholinergics and antimuscarinics] and spasmolytics, initial encounter; Z90.710 Acquired absence of both cervix and uterus; Z87.891 Personal history of nicotine dependence
CPT/HCPCS: 36415; 71045; 74176; 74420; 80048; 80053; 81001; 83605; 83735; 84443; 85025; 85027; 87040; 87077; 87086; 87088; 87186; 94640; 94667; 94668; 96361; 96365; 96367; 96375; 96376; 99285; A9270; C1769; C2617; G0378; J0131; J0330; J0696; J1100; J2250; J2270; J2405; J2543; J2704; J3010; J7030; J7040; J7050; J7120

== ENCOUNTER 2019-07-10 07:47 | Emergency (ER) | payer MEDICARE, SELFPAY ==
--- NOTE | ~2019-07-10 | XR_ITS ---
XR_[id number]_CR DATE: 07/10/2019 10:41 INDICATION: Left sided neck pain. No injury. TECHNIQUE: AP, open-mouth, lateral views COMPARISON: None FINDINGS: There is straightening of the cervical spine. There is approximately 1-2 mm anterolisthesis at C4-5 and C6-7. There is moderate degenerative disc disease at C5-6 and C6-7. C1 and C2 are normally aligned and the odontoid process is intact. No fracture or dislocation or lock ed facet or prevertebral soft tissue swelling. IMPRESSION: Straightening of the cervical spine Mild anterolisthesis at C4-5 and C6-7 Moderate degenerative disease at C5-6 and C6-7 Reviewed, dictated and finalized at [facility]. Reviewed, dictated and finalized at [facility].
--- NOTE | ~2019-07-10 | XR_ITS ---
XR shoulder LT min 2V DATE: 07/10/2019 08:26 INDICATION: Left shoulder pain. No injury. TECHNIQUE: 4 views COMPARISON: None FINDINGS: No fracture or dislocation, periosteal reaction or bone destruction. Normal alignment at th e acromioclavicular and glenohumeral joints. No abnormal soft tissue calcification. IMPRESSION: No significant abnormality Reviewed, dictated and finalized at [facility]. IMPRESSION: No significant abnormality
[2019-07-10 07:51] VITALS: BP 152/64; PULSE 92; RESP 18; TEMP 36.2; O2SAT 99
[2019-07-10] MEDS: MORPHINE SULFATE 10 MG/ML AMP 4 MG IM (09:02)
[2019-07-10 09:08] VITALS: BP 170/97; PULSE 84; RESP 18; O2SAT 100
--- NOTE | 2019-07-10 09:13 | ED.UPPEXIN ---
HPI - Extremity Injury (Upper) General Chief Complaint: Extremity Injury, Upper Stated Complaint: left shoulder pain Time Seen by Provider: 07/10/19 07:55 History of Present Illness HPI narrative: Patient presents via personal car, for left shoulder pain for 6 days. It started while she was hospitalized for urinary sepsis, here at [facility]. It hurts worse with motion, and in the left scapula. There is been no injury. She has not had fever chills or sweats. She had IVs in both arms while she was hospitalized. She has no neck pain. Related Data Home Medications Medication Instructions Recorded Confirmed aspirin 81 mg tablet,delayed 81 mg PO DAILY 03/10/19 06/28/19 release cholecalciferol (vitamin D3) 50 mcg PO DAILY 05/31/19 06/28/19 [Vitamin D3] psyllium husk [Metamucil] 0.4 g PO DAILY 06/28/19 06/28/19 Allergies Allergy/AdvReac Type Severity Reaction Status Date / Time atorvastatin Allergy Unknown severe Verified 07/10/19 07:55 muscle pain simvastatin Allergy Unknown severe Verified 07/10/19 07:55 muscle pain PMFSH Past Medical History Medical History (Updated 07/10/19 @ 10:55 by Jane Beltran MD) Essential hypertension Kidney stones Mixed hyperlipidemia Surgical History Surgical History (Updated 06/28/19 @ 20:29 by Cheyenne Parham NP) H/O dilation and curettage X2 H/O: hysterectomy History of renal stent Bilaterally today Status post laser lithotripsy of ureteral calculus 4.2.20 ( right) Family History Family History (Updated 06/28/19 @ 20:29 by Cheyenne Parham NP) Mother Patient's mother is , Onset Age: 52 Hypertension Sibling Family history of lung cancer 1 brother had lung cancer Family history of coronary artery disease 1 brother had an aneurysm Social History Social History (Updated 06/28/19 @ 20:32 by Cheyenne Parham NP) Social History: The patient has 1 son and is living with her who is a durable power online merchandiser. 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 She quit smoking in 1991. Smoking status: Former smoker Alcohol intake: never Substance use: never Gender identity (if verbalized by the patient): Female Spiritual care concerns: No Agree to blood products: Yes Course Reevaluation(s) Reevaluation #1: The shoulder x-ray was normal, but the cervical x-ray shows significant degenerative joint disease, and possible disc disease. I suspect her pain is from cervical neuropathy, and will discuss this with her. Date: 07/10/19 Time: 10:55 Vital Signs Vital signs: Vital Signs Temperature 97.2 F L 07/10/19 07:51 Pulse Rate 92 07/10/19 07:51 Respiratory Rate 18 07/10/19 07:51 Blood Pressure 152/64 H 07/10/19 07:51 Pulse Oximetry 99 07/10/19 07:51 Temperature 97.2 F L 07/10/19 10:05 Pulse Rate 66 07/10/19 11:14 Respiratory Rate 18 07/10/19 11:14 Blood Pressure 147/59 H 07/10/19 11:14 Pulse Oximetry 98 07/10/19 11:14 Discharge Plan Discharge Clinical Impression: Cervical neuropathy Patient Disposition: Home, Self-Care Condition: Stable Instructions: Cervical Radiculopathy (ED) Prescriptions: New gabapentin [Neurontin] 300 mg capsule 300 mg PO TID Qty: 30 RF: 0 No Action aspirin 81 mg tablet,delayed release (DR/EC) 81 mg PO DAILY RF: 0 Hold Instructions: Resume on 06/06/19. psyllium husk [Metamucil] 0.4 gram Capsule 0.4 g PO DAILY RF: 0 levofloxacin 500 mg Tablet 500 mg BYMOUTH DAILY Qty: 8 RF: 0 Saccharomyces boulardii [Florastor] 250 mg Capsule 250 mg PO BID Qty: 20 RF: 0 cholecalciferol (vitamin D3) [Vitamin D3] 50 mcg (2,000 unit) Capsule 50 mcg PO DAILY RF: 0 hydrochlorothiazide 25 mg tablet 25 mg PO DAILY Qty: 90 RF: 1 lisinopril 20 mg tablet 20 mg PO DAILY Qty: 90 RF: 1 fenofibrate 160 mg tablet 160 mg PO DAILY Qty: 90 RF: 3 Follow-up
[2019-07-10 10:01] VITALS: BP 140/56; PULSE 74; RESP 18; O2SAT 94
[2019-07-10 10:05] VITALS: TEMP 36.2
[2019-07-10 11:14] VITALS: BP 147/59; PULSE 66; RESP 18; O2SAT 98
== END 2019-07-10 11:15 | disposition home or self-care (01) ==
PROVIDERS: Emergency Provider Emergency Medicine; PCP Family Medicine
DX: G62.9 Polyneuropathy, unspecified (principal); I10 Essential (primary) hypertension; Z87.442 Personal history of urinary calculi; E78.2 Mixed hyperlipidemia; Z87.891 Personal history of nicotine dependence; M50.323 Other cervical disc degeneration at C6-C7 level
CPT/HCPCS: 72040; 73030; 96372; 99284; J2270

== ENCOUNTER 2019-07-13 05:49 | Outpatient (CLI) | payer MEDICARE, SELFPAY ==
[2019-07-13 18:35] LABS: SARS-CoV-2 RNA PCR Negative
== END 2019-07-13 05:50 | disposition home or self-care (01) ==
LOC: ANHCOVIDDT 05:49
PROVIDERS: PCP Family Medicine; Visit Provider Urology
DX: Z01.818 Encounter for other preprocedural examination (principal); Z11.59 Encounter for screening for other viral diseases; N20.0 Calculus of kidney
CPT/HCPCS: 87635; C9803; U0003

== ENCOUNTER 2019-07-15 02:59 | Day surgery (SDC) | payer MEDICARE, SELFPAY ==
[2019-07-12 13:49] VITALS: BMI 32.3
--- NOTE | 2019-07-13 16:23 | PM.HPGS ---
History of Present Illness History of Present Illness Consent: Risks, benefits, and alternatives have been discussed and questions answered. Patient agrees to proceed with procedure. Chief complaint: L ureteral stone, Renal stone Narrative: Sindhu Gonzalez is a 69 year old female Is plagued with recurring urolithiasis. 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 More recently she was admitted with left flank pain, obstructed left pyelonephritis and stones in her left ureter. She underwent cystoscopy with bilateral ureteral stent placement. After management of her urinary tract infections she now presents for left ureteroscopy with stone extraction. Review of Systems Cardiovascular: Cardiovascular: Denies chest pain, Denies lightheadedness, Denies palpitations and Denies dyspnea Respiratory: Respiratory: Denies dyspnea Gastrointestinal: Gastrointestinal: Denies diarrhea, Denies nausea and Denies vomiting Genitourinary: Genitourinary: Denies hematuria and Denies dysuria Endocrine: Endocrine: Denies palpitations PMFSH Past Medical History Medical History Abnormal urinalysis Acute pyelonephritis Acute respiratory failure with hypoxia Bacteremia Essential hypertension Hydronephrosis, right Kidney stones Mixed hyperlipidemia Sepsis Xerostomia Surgical History Surgical History H/O dilation and curettage X2 H/O: hysterectomy History of renal stent Bilaterally today Status post laser lithotripsy of ureteral calculus 4.2.20 ( right) Family History Family History Mother Patient's mother is , Onset Age: 52 Hypertension Sibling Family history of lung cancer 1 brother had lung cancer Family history of coronary artery disease 1 brother had an aneurysm Social History Social History (Updated 06/28/19 @ 20:32 by Cheyenne Parham NP) Social History: The patient has 1 son and is living with her who is a durable power corporate associate attorney. 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 She quit smoking in 1991. Smoking status: Former smoker Alcohol intake: never Substance use: never Gender identity (if verbalized by the patient): Female Spiritual care concerns: No Agree to blood products: Yes Meds Home Medications and Allergies Home Medications Medication Instructions Recorded Confirmed Type aspirin 81 mg tablet,delayed 81 mg PO DAILY 03/10/19 07/12/19 History release hydrochlorothiazide 25 mg tablet 25 mg PO DAILY #90 tablet 05/20/19 07/12/19 Rx lisinopril 20 mg tablet 20 mg PO DAILY #90 tablet 05/20/19 07/12/19 Rx cholecalciferol (vitamin D3) 50 mcg PO DAILY 05/31/19 07/12/19 History [Vitamin D3] fenofibrate 160 mg tablet 160 mg PO DAILY #90 tablet 06/21/19 07/12/19 Rx psyllium husk [Metamucil] 0.4 g PO DAILY 06/28/19 07/12/19 History gabapentin [Neurontin] 300 mg PO TID #30 cap 07/10/19 07/12/19 Rx gabapentin 300 mg capsule 300 mg PO TID #270 cap 07/13/19 07/13/19 Rx Allergies Allergy/AdvReac Type Severity Reaction Status Date / Time atorvastatin Allergy Unknown severe Verified 07/12/19 13:47 muscle pain simvastatin Allergy Unknown severe Verified 07/12/19 13:47 muscle pain Exam Const: General: no acute distress Resp: Effort & Inspection: normal respiratory effort GI: Inspection: non-distended GI Palp: No abdominal tenderness and No Guarding due to palpation present (GI) Auscultation: normal bowel sounds Assessment and Plan Assessment and plan (1) Acute kidney injury: Code(s): N17.9 - Acute kidney failure, unspecified Status: Acute (2) Left ureteral calculus: Code(s): N20.1 - Calculus of ureter Status: Acute Assessment and Plan:
[2019-07-15] VITALS (7 sets, daily range): BP systolic 120–136; BP diastolic 48–83; PULSE 89–94; RESP 14–18; TEMP 36.8–38; O2SAT 99–100
--- NOTE | ~2019-07-15 | XR_ITS ---
EXAMINATION: XR retrograde pyelo w/stent LT EXAM DATE: 07/15/2019 14:35 INDICATION: Right stent removal, left stent exchange, left retrograde pyelogram and stone extraction. TECHNIQUE: Fluoroscopy used during XR retrograde pyelo w/stent LT performed by Dr. Arnie Dial MD. The DAP for this procedure was 1.3 mGym2. Cine run(s) available for review. FINDINGS: Initial image demonstrates bilateral ureteral stents, and probable left nephrolithiasis. Le ft ureter was cannulated, injected. There is mild left hydronephrosis. On the final image only the l eft stent was in position. Correlate with procedure note. IMPRESSION: Fluoroscopy used during XR retrograde pyelo w/stent LT. Reviewed, dictated and finalized at location A.
--- NOTE | 2019-07-15 07:09 | WPDHPUPDATE1 ---
History and Physical Update Update Date/Time: 07/15/19 07:09 History and Physical has been reviewed, including an updated exam of the patient. There are NO changes in the patient's condition. Risks, benefits, and alternatives have been discussed and questions answered. Patient agrees to proceed with procedure.
--- NOTE | 2019-07-15 11:12 | WPDANESEPPF ---
Anes - Initial Pre Proc Eval Procedure: Operation Date: 07/15/19 12:30 Proposed Procedures p Cystoscopy, Left Ureteroscopy With Left stone Extraction, Right Stent Removal - Arnie Dial MD s Holmium Laser - Arnie Dial MD Date/Time: 07/15/19 11:12 Surgeon: Arnie Dial MD Pre Op Diagnosis: L ureteral stone, Renal stone Patient Data Age: 69 Gender: F Height: 5 ft 6 in Weight: 91 kg Allergies Allergy/AdvReac Type Severity Reaction Status Date / Time atorvastatin Allergy Unknown severe Verified 07/12/19 13:47 muscle pain simvastatin Allergy Unknown severe Verified 07/12/19 13:47 muscle pain Home Medications Medication Instructions Recorded Confirmed Type aspirin 81 mg tablet,delayed 81 mg PO DAILY 03/10/19 07/14/19 History release hydrochlorothiazide 25 mg tablet 25 mg PO DAILY #90 tablet 05/20/19 07/14/19 Rx lisinopril 20 mg tablet 20 mg PO DAILY #90 tablet 05/20/19 07/14/19 Rx cholecalciferol (vitamin D3) 50 mcg PO DAILY 05/31/19 07/14/19 History [Vitamin D3] fenofibrate 160 mg tablet 160 mg PO DAILY #90 tablet 06/21/19 07/14/19 Rx psyllium husk [Metamucil] 0.4 g PO DAILY 06/28/19 07/14/19 History gabapentin [Neurontin] 300 mg PO TID #30 cap 07/10/19 07/14/19 Rx gabapentin 300 mg capsule 300 mg PO TID #270 cap 07/13/19 07/13/19 Rx Patient hx anesthesia problems: post op nausea/vomiting Family hx anesthesia problems: none PMFSH Past Medical History Medical History (Updated 07/15/19 @ 11:13 by Francisco Young MD) Abnormal urinalysis Acute pyelonephritis Acute respiratory failure with hypoxia Anemia Bacteremia Chronic pain syndrome Essential hypertension Hydronephrosis, right Kidney stones Mixed hyperlipidemia Sepsis Xerostomia Surgical History Surgical History H/O dilation and curettage X2 H/O: hysterectomy History of renal stent Bilaterally today Status post laser lithotripsy of ureteral calculus 4.2.20 ( right) Family History Family History Mother Patient's mother is , Onset Age: 52 Hypertension Sibling Family history of lung cancer 1 brother had lung cancer Family history of coronary artery disease 1 brother had an aneurysm Social History Social History Social History: The patient has 1 son and is living with her who is a durable power real estate inspector. 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 She quit smoking in 1991. Smoking status: Former smoker Alcohol intake: never Substance use: never Gender identity (if verbalized by the patient): Female Spiritual care concerns: No Agree to blood products: Yes Anes - Eval Final PreProcedure Day of Procedure 07/15/19 11:12 Patient weight: obese Heart: regular rate and rhythm Lungs: decreased breath sounds Airway: Mallampati scale class II Neurological: alert and oriented Last oral intake: >/= 8 hours ASA classification: III Emergent: no Anesthetic plan: proceed Anesthesia type and monitoring: general LMA and standard monitoring Informed Consent: The patient's anesthetic plan and its attendant risks and benefits were discussed with the patient/family/POA. Questions were solicited and answers provided to the satisfaction of the patient/family/POA.
[2019-07-15] MEDS: LACTATED RINGERS 1,000 ML 30 ML IV CONT ×2 (11:15→14:52)
--- NOTE | 2019-07-15 11:35 | SUR.PREOP ---
PT MADE AWARE SURGERY DELAY 1HR R/T PREV CASE OVERTIME. PT VOICES UNDERSTANDING. DENIES NEEDS.
[2019-07-15] MEDS: ceFAZolin 2 GM/D5W 50 ML 2 GM/50 ML BAG IVPB (13:32)
[2019-07-15] MEDS: LIDOCAINE HCL 2% GEL UROJET 10 ML PKG MUCOUS MEM (13:45)
--- NOTE | 2019-07-15 14:55 | P.OP_ITS ---
Procedure Note - Detailed Date of procedure: 07/15/19 Pre-op diagnosis: L ureteral stone, Renal stone Post-op diagnosis: same Procedure performed: 1. Cysto., bilateral stent removal. 2. Left retrograde pyelogram. 3. Left ureteroscopy with stone extraction (ureteral stone) and laser li thotripsy (renal stone). 4. Left stent replacement. Description of procedure: The patient was brought to the operative suite where she is prepped and draped in a routine sterile fashion while in the dorsal lithotomy position after the uneventful induction of a general LMA anesthetic. A 19F rigid cystoscope was placed in the bladder. Both indwelling ureteral stents were removed with ease. The patient had no evidence of urethral stricture or bladder neck contracture. The bladder mucosa was endoscopically normal without hyperemia or neoplasm. There was a single, orthotopic ureteral orifice bilaterally. A 0.035 glidewire was advanced into the left renal pelvis under fluoroscopy. The distal ureter was dilated with an 8F/10F ureteral dilato r. Ureteroscopy was undertaken with a short tapered semi-rigid ureteroscope and, later, a 7.5F flexible ureteroscope. Left ureteroscopy with the rigid scope allowed for removal of left mid-ureteral stone intact with a 1.9F Escape basket. Her larger, 4-5mm left renal stone was first fractured with a Holmium laser (273micron fiber) on dusting settings. The larger pieces were then removed with a 0-tip basket. . Due to the extent of this manipulation I did replace the left 4.8F double-J ureteral stent. The proximal coil of the stent was confirmed to be in the renal pelvis and the distal coil in the bladder. The patient's bladder was emptied and he was taken to the recovery room having tolerated this procedure well. Anesthesia: GLMA Surgeon: Arnie Dial MD Estimated blood loss (mL): 0 Drains: Yes (4.8F left ureteral stent) Packing: No Pathology: yes Complications: No immediate complications Condition: stable Disposition: PACU
== END 2019-07-15 16:10 | disposition home or self-care (01) ==
PROVIDERS: PCP Family Medicine; Visit Provider Urology
PROC: (CPT 52352; principal; 2019-07-15 12:30)
PROC: (CPT 52356; 2019-07-15 12:30)
DX: N20.2 Calculus of kidney with calculus of ureter (principal); I10 Essential (primary) hypertension; E78.2 Mixed hyperlipidemia; D64.9 Anemia, unspecified; G89.4 Chronic pain syndrome; E66.9 Obesity, unspecified; Z68.32 Body mass index [BMI] 32.0-32.9, adult
CPT/HCPCS: 52356; 74420; 82365; 87635; 88300; A9270; C1769; C1887; C1894; C2617; C9803; J0690; J1100; J2370; J2405; J2704; J3010; J7120; Q9966; U0003

== ENCOUNTER 2019-08-12 05:37 | Emergency (ER) | payer MEDICARE, SELFPAY ==
--- NOTE | ~2019-08-12 | CT_ITS ---
EXAMINATION: CT abdomen pelvis wo con DATE: 08/12/2019 08:26 INDICATION: Right flank pain and epigastric pain. TECHNIQUE: Computed tomography (CT) of the abdomen and pelvis was performed without intravenous contr ast. Automated exposure control and iterative reconstruction technique were employed. The dose-length product was 976.51 mGy-cm. COMPARISON: 06/28/2019 FINDINGS: Lung bases are clear. Heart size is normal. No pericardial or pleural effusion. Large calcified galls tone at the neck of the otherwise normal-appearing gallbladder. No evident wall thickening or pericho lecystic inflammatory change to suggest acute cholecystitis. 8 mm cyst in the left hepatic lobe. Sple en, pancreas, left kidney and bilateral adrenal glands are normal. 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 The 4 mm stone previously seen at a lower pole calyx is now in the dependent aspect of the dilated proximal as pect of the ureter draining the lower pole moiety and does not appear obstructing at its current loca tion with the dilation of the ureter extending distally to near its confluence with the normal calibe r ureter draining the upper pole moiety of the right kidney. No left-sided urolithiasis. Bladder is n ormal. Bowels including appendix are normal. The uterus is not identified and has likely been surgica lly resected. No free intraperitoneal gas or fluid. No pathologically enlarged abdominal or pelvic ly mphadenopathy. Mild scattered degenerative skeletal changes. IMPRESSION: 1. Partially duplicated right ureter with moderate hydronephrosis of the lower pole of the right kidn ey. There is a 4 mm stone in the dilated portion of right ureter however this does not appear current ly obstructing dislocated proximal to the transition point which is more inferior near the confluence with the normal ureters draining the upper pole. 2. Cholelithiasis. Reviewed, dictated and finalized at location A. IMPRESSION: 1. Partially duplicated right ureter with moderate hydronephrosis of the lower pole of the right kidney. There is a 4 mm stone in the dilated portion of right ureter however this does not appear currently obstructing dislocated proximal to the transition point which is more inferior near the confluence with the nor mal ureters draining the upper pole. 2. Cholelithiasis.
--- NOTE | ~2019-08-12 | XR_ITS ---
EXAMINATION: XR abdomen/kub 1V DATE: 08/12/2019 08:30 INDICATION: Right flank pain. Epigastric pain. TECHNIQUE: A supine view of the abdomen on 2 radiographs was obtained. COMPARISON: CT dated 08/12/2019 FINDINGS: The 4 mm stone in the proximal right ureter projects over the psoas muscle slightly inferior to the t ip of the right transverse process of L4. There are a few phleboliths in the pelvis. Large calcified gallstone in the right upper quadrant. Normal bowel gas pattern. Lung bases are clear. Heart size is normal. IMPRESSION: 1. 4 mm stone in the proximal right ureter. 2. Cholelithiasis. 3. Normal bowel gas pattern. Reviewed, dictated and finalized at location A.
--- NOTE | ~2019-08-12 | US_ITS ---
EXAMINATION: US right upper quadrant DATE: 08/12/2019 07:42 INDICATION: Right upper quadrant abdominal pain TECHNIQUE: Multiple grayscale and Doppler ultrasound images of the abdomen were obtained. COMPARISON: CT dated 06/28/2019 FINDINGS: The pancreas is not clearly visualized. Liver has normal echogenicity and contour, with a smooth surf daron. No liver lesion identified. No intrahepatic biliary duct dilation suspected. Portal venous flow was seen in the hepatopetal, normal direction and has normal Doppler waveform. Shadowing echogenic ga llstone within the otherwise normal-appearing gallbladder.. The common bile duct measures 6 mm, which is within normal limits for age. Sonographic Rey sign was reported as negative by the cracker dough mixer . Persistent mild to moderate hydronephrosis at the lower pole of the right kidney with partial dupli cation of the right ureter evident on prior CT. A 4 mm stone previously seen in the lower pole calyx of the right kidney is not identified. IMPRESSION: 1. Persistent mild to moderate hydronephrosis at the lower pole of the right kidney with at least par tially duplicated right ureter evident on prior CT. A 4 mm stone previously seen at in a lower pole c yoana of the right kidney is no longer visualized suggesting possible this may movement into the urete r draining the lower pole resulting obstruction. Patient did however have an intervening urologic pro cedure 07/15/2019 with placement of a right internal ureteral stent but with no mention of right-sided stone extraction. Consider correlation with KUB. Reviewed, dictated and finalized at location A. IMPRESSION: 1. Persistent mild to moderate hydronephrosis at the lower pole of the right ki dney with at least partially duplicated right ureter evident on prior CT. A 4 m m stone previously seen at in a lower pole calyx of the right kidney is no long er visualized suggesting possible this may movement into the ureter draining th e lower pole resulting obstruction. Patient did however have an intervening uro logic procedure 07/15/2019 with placement of a right internal ureteral stent but with no mention of right-sided stone extraction. Consider correlation with KUB .
[2019-08-12 05:40] VITALS: BP 152/76; PULSE 86; RESP 16; TEMP 36.4; O2SAT 100
--- NOTE | 2019-08-12 05:41 | ED.ABDPAIN ---
HPI - Abdominal Pain General Chief Complaint: Abdominal Pain <Serina Monterroso MD - Last Filed: 08/12/19 07:15> Stated Complaint: abd pain <Serina Monterroso MD - Last Filed: 08/12/19 07:15> Time Seen by Provider: 08/12/19 05:39 <Serina Monterroso MD - Last Filed: 08/12/19 07:15> Source: patient <Serina Monterroso MD - Last Filed: 08/12/19 07:15> Mode of arrival: ambulatory <Serina Monterroso MD - Last Filed: 08/12/19 07:15> Limitations: no limitations <Serina Monterroso MD - Last Filed: 08/12/19 07:15> History of Present Illness HPI narrative: Patient is a 69-year-old female with a history of renal colic who presents for evaluation of abdominal pain. Patient reports pain in her upper abdomen, radiating into the right upper quadrant and right back. Patient reports nausea and vomiting, denies fever. No diarrhea or constipation. Patient reports she was told she had a large gallbladder stone from a CT scan in June, but has not given her any trouble, patient does attribute her symptoms to that today. Patient denies any dysuria, hematuria, flank pain or frequency type symptoms. States this pain is in a different location and has a different quality from the renal stone pain she has experienced in the past. Patient denies chest pain, shortness of breath, shoulder pain or neck pain. <Serina Monterroso MD - Last Filed: 08/12/19 07:15> Related Data Home Medications: Home Medications Medication Instructions Recorded Confirmed aspirin 81 mg tablet,delayed 81 mg PO DAILY 03/10/19 08/12/19 release cholecalciferol (vitamin D3) 50 mcg PO DAILY 05/31/19 08/12/19 [Vitamin D3] psyllium husk [Metamucil] 0.4 g PO DAILY 06/28/19 08/12/19 <Serina Monterroso MD - Last Filed: 08/12/19 07:15> Allergies/Adverse Reactions: Allergies Allergy/AdvReac Type Severity Reaction Status Date / Time atorvastatin Allergy Unknown severe Verified 08/12/19 12:41 muscle pain simvastatin Allergy Unknown severe Verified 08/12/19 12:41 muscle pain <Serina Monterroso MD - Last Filed: 08/12/19 07:15> Review of Systems Review of Systems: Narrative: CONSTITUTIONAL: Denies fever CARDIOVASCULAR: Denies chest pain RESPIRATORY: Denies cough or dyspnea. GASTROINTESTINAL: Reports upper abdominal pain SKIN: Denies rash MUSCULOSKELETAL: Denies back pain NEUROLOGIC: Denies headache <Serina Monterroso MD - Last Filed: 08/12/19 07:15> [facility] Past Medical History Medical History: Medical History Abnormal urinalysis Acute pyelonephritis Acute respiratory failure with hypoxia Anemia Bacteremia Chronic pain syndrome Essential hypertension Hydronephrosis, right Kidney stones Mixed hyperlipidemia Sepsis Xerostomia <Serina Monterroso MD - Last Filed: 08/12/19 07:15> Surgical History Surgical History: Surgical History H/O dilation and curettage X2 H/O: hysterectomy History of renal stent Bilaterally today Status post laser lithotripsy of ureteral calculus 4.2.20 ( right) <Serina Monterroso MD - Last Filed: 08/12/19 07:15> Family History Family History: Family History Mother Patient's mother is , Onset Age: 52 Hypertension Sibling Family history of lung cancer 1 brother had lung cancer Family history of coronary artery disease 1 brother had an aneurysm <Serina Monterroso MD - Last Filed: 08/12/19 07:15> Social History Social History: Social History Social History: The patient has 1 son and is living with her who is a durable power corporate associate attorney. 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 She quit smoking in 1991. Smoking status: Former smoker Alcohol intake: bill
[2019-08-12 06:04] LABS: Basophils Absolute Auto 0.1 K/mm3 (0.0-0.1); Basophils Percent Auto 0.8 % (0.2-1.2); Eosinophils Percent Auto 0.1 % (0-4.4); Hemoglobin 12.8 g/dL (12.0-15.0); Immature Granulocyte Absolute 0.06 K/mm3 (0.00-0.031); Immature Granulocyte Percent A 0.6 % (0-0.5); Lymphocytes Absolute Auto 1.15 K/mm3 (0.9-3.2); Lymphocytes Percent Auto 10.7 % (18.3-44.2); Mean Corpuscular HGB Conc 32.8 g/dl (32-36); Mean Corpuscular Volume 85.3 fl (80-100); Mean Platelet Volume 10.3 fl (7.4-10.4); Monocytes Absolute Auto 0.5 K/mm3 (0.1-0.6); Monocytes Percent Auto 4.5 % (2.6-8.5); Neutrophils Percent Auto 83.3 % (45.5-73.1); Platelet Count Result 345 k/mm3 (150-375); Red Blood Count 4.57 M/mm3 (4.2-5.4); Red Cell Distribution Width 13.2 % (11.5-14.5); White Blood Count 10.8 K/mm3 (4.5-10.0)
[2019-08-12] MEDS: DICYCLOMINE HCL INJ 20 MG/2 ML VIAL IM (06:06)
[2019-08-12] MEDS: ONDANSETRON INJ 4 MG/2 ML VIAL IV PUSH (06:06)
[2019-08-12] MEDS: SODIUM CHLORIDE 0.9% IV 1,000 ML 999 ML IV CONT (06:06)
[2019-08-12] MEDS: MORPHINE SULFATE 4 MG/ML INJ IV PUSH ×2 (06:06→09:01)
[2019-08-12 06:31] LABS: Add Urine Microscopic? YES; Appearance Urine Clear (Clear); Bilirubin Urine Negative (Negative); Blood Urine Negative (Negative); Color Urine Yellow (Yellow); Glucose Urine UA Negative (Negative); Ketones Urine Negative (Negative); Leukocyte Esterase Ur Negative LEU/UL (Negative); Mucus Urine Rare /lpf; Nitrate Urine Negative (Negative); Protein Urine Negative (Negative); Specific Grav Ur 1.019 (1.001-1.035); Squamous Epithelial Cell Urine Rare /hpf (Few); Urobilinogen Urine Negative mg/dL (<2.0); WBC Urine 0-3 /hpf
[2019-08-12 06:49] VITALS: BP 139/57; PULSE 72; RESP 18; O2SAT 95
[2019-08-12 06:54] LABS: Alanine Aminotransferase 23 U/L (4-35); Albumin Level 4.4 g/dL (3.5-5.1); Alkaline Phosphatase 86 U/L (38-126); Aspartate Amino Transferase 32 U/L (14-36); Bilirubin,Total 0.3 mg/dL (0.2-1.3); Blood Urea Nitrogen 21 mg/dL (7-17); Calcium 10.1 mg/dL (8.4-10.2); Carbon Dioxide 27 mmol/L (22-30); Chloride 103 mmol/L (98-107); Estimated Glomerular Filt Rate 45; Glucose 148 mg/dL (65-105); Lipase 272 U/L (23-300); Potassium 3.7 mmol/L (3.4-5.0); Sodium 136 mmol/L (137-145)
[2019-08-12 09:57] VITALS: BP 146/70; PULSE 104; RESP 16; O2SAT 98
--- NOTE | 2019-08-12 10:59 | PM.CNGS ---
Assessment and Plan Assessment and plan (1) Cholelithiasis: Code(s): K80.20 - Calculus of gallbladder without cholecystitis without obstruction Status: Acute Assessment and Plan: given symptomatology will setup for urgent cholecystectomy, cont low fat diet for now (2) Essential hypertension: Code(s): I10 - Essential (primary) hypertension Status: Chronic Assessment and Plan: cont current mgmt History of Present Illness Consult details Consult date: 08/12/19 Reason for consult: gallstones Requesting physician: Julia Mckinney MD Narrative: Pt is a 69 y/o F presenting to ED c/o epigastric/RUQ abd pain starting last night after eating some fried chicken. Pt reports assoc nausea, bloating. Pt reports over last week or two she has had multiple similar episodes although not as severe. Pt does report pain seems to radiate into back, chest. Pt feels better now after receiving IV analgesia. Review of Systems Constitutional: Constitutional: Denies chills, Denies fatigue, Denies lethargy and Denies weakness Eyes: Eyes: Denies no additional eye complaints ENT: Denies dysphagia, Denies headache(s), Denies hearing loss and Denies sore throat Cardiovascular: Cardiovascular: Denies chest pain, Denies syncope, Denies irregular heart rhythm, Denies leg edema, Denies palpitations and Denies dyspnea Respiratory: Respiratory: Denies cough and Denies dyspnea Gastrointestinal: Gastrointestinal: Reports abdominal pain, Reports bloating, Denies change in bowel habits, Denies change in stool character, Denies constipation, Denies dysphagia, Reports heartburn, Denies diarrhea, Reports nausea and Denies vomiting Genitourinary: Genitourinary: Denies urinary frequency, Denies dysuria and Denies urinary urgency Musculoskeletal: Musculoskeletal: Denies myalgias, Denies arthralgias and Denies muscle cramps Integumentary/Breasts: Skin/Breast: Denies non-healing lesions and Denies rash Neurologic: Denies syncope, Denies headache(s) and Denies loss of vision Psychiatric: Psychiatric: Denies no additional psychiatric complaints Endocrine: Endocrine: Denies change in body appearance and Denies fatigue Hematologic/Lymphatic: Hematologic/Lymphatic: Denies easy bleeding, Denies easy bruising and Denies lymphadenopathy PMFSH Past Medical History Medical History Abnormal urinalysis Acute pyelonephritis Acute respiratory failure with hypoxia Anemia Bacteremia Chronic pain syndrome Essential hypertension Hydronephrosis, right Kidney stones Mixed hyperlipidemia Sepsis Xerostomia Surgical History Surgical History H/O dilation and curettage X2 H/O: hysterectomy History of renal stent Bilaterally today Status post laser lithotripsy of ureteral calculus 4.2.20 ( right) Family History Family History Mother Patient's mother is , Onset Age: 52 Hypertension Sibling Family history of lung cancer 1 brother had lung cancer Family history of coronary artery disease 1 brother had an aneurysm Social History Social History Social History: The patient has 1 son and is living with her who is a durable power jtac. 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 She quit smoking in 1991. Smoking status: Former smoker Alcohol intake: never Substance use: never Gender identity (if verbalized by the patient): Female Spiritual care concerns: No Agree to blood products: Yes Meds Home Medications and Allergies Home Medications Medication Instructions Recorded Confirmed Type aspirin 81 mg tablet,delayed 81 mg PO DAILY 03/10/19 07/15/19 History release hydrochlorothiazide 25 mg tablet 25 mg PO DAILY #9
== END 2019-08-12 10:46 | disposition home or self-care (01) ==
PROVIDERS: Emergency Medicine; Emergency Provider General Practice; PCP Family Medicine
DX: K80.20 Calculus of gallbladder without cholecystitis without obstruction (principal); I10 Essential (primary) hypertension; E78.2 Mixed hyperlipidemia; Z87.442 Personal history of urinary calculi; Z86.2 Personal history of diseases of the blood and blood-forming organs and certain disorders involving the immune mechanism; Z87.891 Personal history of nicotine dependence; Z79.82 Long term (current) use of aspirin; K11.7 Disturbances of salivary secretion; G89.4 Chronic pain syndrome
CPT/HCPCS: 36415; 74018; 74176; 76705; 80053; 81001; 83690; 85025; 96361; 96372; 96374; 96375; 96376; 99284; J0500; J2270; J2405; J7030

== ENCOUNTER 2019-08-13 01:38 | Day surgery (SDC) | payer MEDICARE, SELFPAY ==
[2019-08-12 12:40] VITALS: BMI 32.3
[2019-08-13] VITALS (10 sets, daily range): BP systolic 137–151; BP diastolic 63–79; PULSE 89–111; RESP 12–19; TEMP 35.9–37.1; O2SAT 97–100; BMI 32.8
--- NOTE | 2019-08-13 05:55 | ECG_ITS ---
Measurements Intervals Kelley Rate: 92 P: 30 PA: 162 QRS: -17 QRSD: 93 T: 21 QT: 352 QTc: 436 Interpretive Statements SINUS RHYTHM NORMAL ECG Electronically Signed On 08-13-2019 7:11:45 CDT by Luiz Burgos D.O.
--- NOTE | 2019-08-13 06:46 | WPDANESEPPF ---
Anes - Initial Pre Proc Eval Procedure: Operation Date: 08/13/19 07:30 Proposed Procedures p Laparoscopic Cholecystectomy - Nimisha Willoughby MD Date/Time: 08/13/19 06:46 Surgeon: Nimisha Willoughby MD Pre Op Diagnosis: Chronic Cholecystitis Patient Data Age: 69 Gender: F Height: 5 ft 6 in Weight: 90.72 kg Allergies Allergy/AdvReac Type Severity Reaction Status Date / Time atorvastatin Allergy Unknown severe Verified 08/12/19 12:41 muscle pain simvastatin Allergy Unknown severe Verified 08/12/19 12:41 muscle pain Home Medications Medication Instructions Recorded Confirmed Type aspirin 81 mg tablet,delayed 81 mg PO DAILY 03/10/19 08/12/19 History release hydrochlorothiazide 25 mg tablet 25 mg PO DAILY #90 tablet 05/20/19 08/12/19 Rx lisinopril 20 mg tablet 20 mg PO DAILY #90 tablet 05/20/19 08/12/19 Rx cholecalciferol (vitamin D3) 50 mcg PO DAILY 05/31/19 08/12/19 History [Vitamin D3] fenofibrate 160 mg tablet 160 mg PO DAILY #90 tablet 06/21/19 08/12/19 Rx psyllium husk [Metamucil] 0.4 g PO DAILY 06/28/19 08/12/19 History gabapentin 300 mg capsule 300 mg PO TID #270 cap 07/13/19 08/12/19 Rx hydrocodone-acetaminophen [[place]] 1 tablet PO Q6H PRN #7 tablet 08/12/19 08/12/19 Rx ondansetron HCl [Zofran] 4 mg PO Q6H PRN #7 tablet 08/12/19 08/12/19 Rx Patient hx anesthesia problems: post op nausea/vomiting Family hx anesthesia problems: none PMFSH Past Medical History Medical History Abnormal urinalysis Acute pyelonephritis Acute respiratory failure with hypoxia Anemia Bacteremia Chronic pain syndrome Essential hypertension Hydronephrosis, right Kidney stones Mixed hyperlipidemia Sepsis Xerostomia Surgical History Surgical History H/O dilation and curettage X2 H/O: hysterectomy History of renal stent Bilaterally today Status post laser lithotripsy of ureteral calculus 4.2.20 ( right) Family History Family History Mother Patient's mother is , Onset Age: 52 Hypertension Sibling Family history of lung cancer 1 brother had lung cancer Family history of coronary artery disease 1 brother had an aneurysm Social History Social History Social History: The patient has 1 son and is living with her who is a durable power sports attorney. 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 She quit smoking in 1991. Smoking status: Former smoker Alcohol intake: never Substance use: never Gender identity (if verbalized by the patient): Female Spiritual care concerns: No Agree to blood products: Yes Anes - Eval Final PreProcedure Day of Procedure 08/13/19 06:46 Patient weight: obese Heart: regular rate and rhythm Lungs: clear to auscultation Airway: Mallampati scale class II Neurological: alert and oriented Last oral intake: >/= 8 hours ASA classification: III Emergent: no Anesthetic plan: proceed Anesthesia type and monitoring: general ETT and standard monitoring Informed Consent: The patient's anesthetic plan and its attendant risks and benefits were discussed with the patient/family/POA. Questions were solicited and answers provided to the satisfaction of the patient/family/POA.
[2019-08-13] MEDS: LACTATED RINGERS 1,000 ML 30 ML IV CONT ×2 (07:15→08:35)
--- NOTE | 2019-08-13 07:23 | WPDHPUPDATE1 ---
History and Physical Update Update Date/Time: 08/13/19 07:23 History and Physical has been reviewed, including an updated exam of the patient. There are NO changes in the patient's condition. Risks, benefits, and alternatives have been discussed and questions answered. Patient agrees to proceed with procedure.
[2019-08-13] MEDS: SCOPOLAMINE 1.5 MG PATCH TRANSDERM (07:26)
[2019-08-13] MEDS: ceFAZolin 2 GM/D5W 50 ML 2 GM/50 ML BAG IVPB (07:28)
[2019-08-13 07:38] LABS: Amylase 98 U/L (30-110)
[2019-08-13] MEDS: BUPIVACAINE/EPINEPHRINE 0.5% 30 ML VIAL INFILTRATE (07:54)
--- NOTE | 2019-08-13 08:20 | PM.PROC ---
Procedure Note - Detailed Date of procedure: 08/13/19 Pre-op diagnosis: Chronic Cholecystitis Post-op diagnosis: other (acute cholecystitis, cholelithiasis) Procedure performed: laparoscopic cholecystectomy Description of procedure: The patient was taken to the operating room placed in the supine position. After adequate induction of general anesthesia, the patient was prepped and draped in normal sterile fashion. A time-out was then performed to verify the patient's identity as well as the procedure being performed. I then made a 5 mm incision in the infraumbilical region. Through this, a Veress needle was placed into the peritoneal cavity and CO2 gas was then insufflated. After adequate pneumoperitoneum was achieved, the Veress needle was removed and a 5 mm trocar was placed through this incision. I then placed the laparoscope through this trocar site and under direct visualization placed a further 12 mm subxiphoid port as well as 2 additional 5 mm ports in the right upper abdomen. The gallbladder was then identified and was noted to be inflamed. An ovarian needle was used to decompress the gallbladder secondary to the amount of inflammation, distension. I was able to place a grasper at the dome of the gallbladder and this was retracted anterior and cephalad up over the liver. A 2nd retractor was then placed at the infundibulum and retracted laterally, this allowed visualization of the triangle of Calot. I then was able to visualize the cystic duct in its entirety from its proximal insertion into the gallbladder, to its distal junction with the common hepatic/common bile duct junction. At this point, I carefully skeletonized the proximal cystic duct with the [place] dissector. I then clipped and transected the proximal cystic duct. Next I visualized the cystic artery. Again the artery was skeletonized, clipped, and transected. I then used the Bovie cautery to take down the peritoneal attachments of the gallbladder off the liver bed. This was done with some difficulty given the amount of inflammation and pericholecystic fluid. Once the gallbladder specimen was completely detached, an endo-pouch was placed through the 12 mm port site. I then placed the gallbladder specimen into the Endo pouch and removed the endo-pouch from the 12 mm port site. The specimen will now be sent to pathology for further review. I then copiously irrigated the right upper quadrant. Hemostasis was noted in the liver bed, the clips were noted to be in good position on both the cystic duct stump and the cystic artery stump. No other pathology was noted in the right upper quadrant. I then moved the laparoscope to the subxiphoid port. No iatrogenic injury or other pathology was noted in the lower abdomen. At this point, the abdomen was desufflated and all ports removed. The fascia of the 12 mm subxiphoid port was closed with a 0 Vicryl figure of 8 suture. All port sites were then closed with 4.O Monocryl subcuticular sutures. Dermabond was placed on each incision. The patient tolerated the procedure well, was extubated in the operating room postoperative and will be transferred to the recovery room in stable condition. Implants: none Anesthesia: GETA Surgeon: Nimisha Willoughby MD Estimated blood loss (mL): 10 Drains: No Packing: No Pathology: yes Complications: No immediate complications Condition: stable Disposition: PACU Findings: acute cholecystitis, cholelithiasis
--- NOTE | 2019-08-13 08:30 | SUR.PREOP ---
0820; PT RETURNED FROM [facility]
--- NOTE | 2019-08-13 09:04 | SUR.PHASEI ---
08/13/19 0904- SPOUSE CALLED AND UPDATED.
[2019-08-13] MEDS: ONDANSETRON INJ 4 MG/2 ML VIAL IV PUSH ×2 (09:39→10:33)
--- NOTE | 2019-08-13 09:52 | SUR.PHASEII ---
PT NAUSEOUS UPON ARRIVAL TO OP AREA. PT GIVEN ZOFRAN. NOW EATING A CRACKER. DENIES NAUSEA NOW. UPDATED.
--- NOTE | 2019-08-13 10:03 | SUR.PHASEII ---
PT COLD; WARM BLANKETS GIVEN. PT C/O'S NOT FEELING WELL . DENIES NAUSEA. WILL CONTINUE TO MONITOR.
--- NOTE | 2019-08-13 10:26 | SUR.PHASEII ---
ICE BAG TO ABDOMEN.
== END 2019-08-13 11:07 | disposition home or self-care (01) ==
PROVIDERS: Visit Provider Surgery
PROC: 0FT44ZZ Resection of Gallbladder, Percutaneous Endoscopic Approach (ICD-10-PCS; CPT 47562; principal; 2019-08-13 07:30)
DX: K80.00 Calculus of gallbladder with acute cholecystitis without obstruction (principal); I10 Essential (primary) hypertension; E78.2 Mixed hyperlipidemia; D64.9 Anemia, unspecified; G89.4 Chronic pain syndrome; Z79.82 Long term (current) use of aspirin; Z79.891 Long term (current) use of opiate analgesic; Z87.891 Personal history of nicotine dependence; E66.9 Obesity, unspecified; Z68.32 Body mass index [BMI] 32.0-32.9, adult
CPT/HCPCS: 47562; 36415; 82150; 86850; 86900; 86901; 88304; 93005; A9270; C1713; J0131; J0690; J1100; J2250; J2405; J2704; J2710; J3010; J7030; J7120

== ENCOUNTER → 2019-09-01 09:16 | Outpatient (CLI) | payer MEDICARE, SELFPAY ==
--- NOTE | ~2019-09-01 | MMUS_ITS ---
EXAMINATION: MM diagnostic jhony BI w emilee, US breast LT limited HISTORY: Rule up left breast mass TECHNIQUE: Additional 3-D tomosynthesis images of the breasts were performed and synthetic 2-D images were generated. CAD analysis was submitted and interpreted. High resolution left breast ultrasound w as performed. COMPARISON: Comparison to multiple prior studies sequentially, with oldest reviewed study dated 04/24. FINDINGS: MAMMOGRAPHIC FINDINGS: Breast composed of scattered areas of fibroglandular density. The right breast is stable without evid ence for malignancy. There is focal asymmetry in the upper central aspect of the left breast, unchang ed. No new masses, calcifications are identified. ULTRASOUND: Left breast ultrasound: Stable 5 x 4 x 3 mm anechoic mass with echogenic center at 12:00, 2 cm from the nipple. This most lik richa represents a complicated cyst or benign intramammary lymph node. No evidence for malignancy.. IMPRESSION: 1. No mammographic evidence for malignancy. Stable benign-appearing left breast mass. 2. Routine yearly screening mammogram and regular clinical breast examination are recommended. BI-RADS Category 2: Benign finding(s). Reviewed, dictated and finalized at location A. IMPRESSION: 1. No mammographic evidence for malignancy. Stable benign-appearing left breast mass. 2. Routine yearly screening mammogram and regular clinical breast examination a re recommended. BI-RADS Category 2: Benign finding(s).
== END ==
PROVIDERS: PCP Family Medicine; Visit Provider Family Medicine
DX: N63.25 Unspecified lump in the left breast, overlapping quadrants (principal); N60.19 Diffuse cystic mastopathy of unspecified breast; F17.201 Nicotine dependence, unspecified, in remission
CPT/HCPCS: 76642; 77062; 77066; G0279

== ENCOUNTER → 2019-10-15 07:50 | Outpatient (CLI) | payer MEDICARE, SELFPAY ==
--- NOTE | ~2019-10-15 | MR_ITS ---
EXAMINATION: MR brain/brain stem wo con DATE: 10/15/2019 08:35 INDICATION: Other amnesia. Confusion. Neck pain. TECHNIQUE: Magnetic resonance imaging (MRI) of the brain and brainstem was performed without intraven ous contrast. Sequences included sagittal and axial T1-weighted FSE, axial diffusion-weighted FS EPI, axial T2*-weighted GRE, axial T2-weighted FLAIR Propeller, and axial T2-weighted Propeller. Apparent diffusion coefficient (ADC) maps were created. COMPARISON: None. FINDINGS: There is no intracranial hemorrhage, acute infarction, or abnormal intracranial mass lesion . There are scattered areas of nonspecific increased T2-weighted signal intensity in the cerebral whi te matter. The ventricles are normal in size. The paranasal sinuses are clear. The orbits are normal. There are trace bilateral mastoid effusions. IMPRESSION: 1. Moderate nonspecific cerebral white matter disease, which likely represents chronic small vessel i schemic disease. Reviewed, dictated and finalized at location B. IMPRESSION: 1. Moderate nonspecific cerebral white matter disease, which likely represents chronic small vessel ischemic disease.
--- NOTE | ~2019-10-15 | MR_ITS ---
EXAMINATION: MR cervical spine wo con DATE: 10/15/2019 08:44 INDICATION: Cervical radiculopathy. TECHNIQUE: Magnetic resonance imaging (MRI) of the cervical spine was performed without intravenous c ontrast. Sequences included sagittal T2-weighted FSE, sagittal STIR FSE, sagittal T1-weighted FSE, ax ial MERGE, and axial T2-weighted FSE. COMPARISON: Cervical spine radiographs 07/10/2019 FINDINGS: There is hypolordosis of cervical spine. There is 2 mm retrolisthesis of C5 on C6. Vertebra l body heights are normal. There is mildly decreased disc height at C5-C6. The spinal cord signal int ensity is normal. The following disc levels are specifically discussed: C2-C3: The disc does not extend beyond the endplate margin. There is no uncovertebral joint osteoarth ritis. There is mild bilateral facet joint osteoarthritis. There is no neural foraminal stenosis. The re is no central canal stenosis. C3-C4: The disc does not extend beyond the endplate margin. There is no uncovertebral joint osteoarth ritis. There is mild right facet joint osteoarthritis. There is no neural foraminal stenosis. There i s no central canal stenosis. C4-C5: The disc does not extend beyond the endplate margin. There is mild left uncovertebral joint os teoarthritis. There is mild left facet joint osteoarthritis. There is no neural foraminal stenosis. T here is no central canal stenosis. C5-C6: The disc is bulging. There is mild right and moderate left uncovertebral joint osteoarthritis. There is moderate left facet joint osteoarthritis. There is mild left neural foraminal stenosis. The re is mild central canal stenosis. C6-C7: The disc does not extend beyond the endplate margin. There is mild left uncovertebral joint os teoarthritis. There is mild right and moderate left facet joint osteoarthritis. There is no neural fo raminal stenosis. There is no central canal stenosis. C7-T1: The disc does not extend beyond the endplate margin. There is no uncovertebral joint osteoarth ritis. There is no facet joint osteoarthritis. There is no neural foraminal stenosis. There is no jovon tral canal stenosis. IMPRESSION: 1. Mild cervical spondylosis. Reviewed, dictated and finalized at location B.
== END ==
PROVIDERS: PCP Family Medicine; Visit Provider Family Medicine
DX: R41.3 Other amnesia (principal); M47.22 Other spondylosis with radiculopathy, cervical region; R93.0 Abnormal findings on diagnostic imaging of skull and head, not elsewhere classified
CPT/HCPCS: 70551; 72141

== ENCOUNTER → 2020-03-06 08:13 | Outpatient (CLI) | payer MEDICARE, SELFPAY ==
--- NOTE | ~2020-03-06 | XR_ITS ---
XR abdomen/kub 1V 03/06/2020 08:47 Indication: Left ureteral stone Procedure: KUB Comparison: 08/12/2019 Findings: Bowel gas pattern is nonobstructive. There is a calcification in the right abdomen at the L 4-5 level, consistent with ureteral stone. There are pelvic phleboliths. There are cholecystectomy cl ips. Impression: 1: 4 mm right mid ureteral stone at the L4-5 level. Reviewed, dictated and finalized at location A. GIOUS EDUCATION DIRECTOR Impression: 1: 4 mm right mid ureteral stone at the L4-5 level.
== END ==
PROVIDERS: PCP Family Medicine; Visit Provider Urology
DX: N20.1 Calculus of ureter (principal)
CPT/HCPCS: 74018

== ENCOUNTER → 2020-03-15 09:17 | Outpatient (CLI) | payer MEDICARE, SELFPAY ==
--- NOTE | ~2020-03-15 | CT_ITS ---
EXAMINATION: CT abdomen pelvis wo con DATE: 03/15/2020 09:32 INDICATION: Right flank pain, kidney stone TECHNIQUE: Computed tomography (CT) of the abdomen and pelvis was performed without intravenous contr ast. The dose-length product (DLP) was 836.81 mGy-cm. Automated exposure control and iterative recons truction technique were employed. COMPARISON: 08/12/2019 FINDINGS: The lung bases are clear. The heart size is normal. The gallbladder is surgically absent. T here is a 10 mm cyst of the left hepatic lobe. The spleen, pancreas, and adrenal glands are normal. A gain seen is a partially duplicated right renal collecting system. There is a 4 mm stone in the proxi mal ureter of the lower pole which causes mild hydronephrosis. Cysts of the kidneys measure up to 12 mm on the right. The upper pole collecting system and ureter are unremarkable. The ureters appear to join in the pelvis prior to entering the bladder. No stones are identified in the left kidney, left u reter, or bladder. No pathologically enlarged abdominal or pelvic lymph nodes are identified. There i s no free intraperitoneal gas or evidence of bowel obstruction. There is a small fat-containing umbil ical hernia. There is mild lumbar spondylosis. IMPRESSION: 1. Partially duplicated right renal collecting system with a 4 mm stone in the proximal ureter of the lower pole causing mild hydronephrosis. Reviewed, dictated and finalized at location A. R FINISHER
== END ==
PROVIDERS: PCP Family Medicine; Visit Provider Urology
DX: N20.0 Calculus of kidney (principal)
CPT/HCPCS: 74176

== ENCOUNTER 2020-03-20 10:01 | Outpatient (CLI) | payer MEDICARE, SELFPAY ==
[2020-03-20 11:04] LABS: Partial Thromboplastin Time 26.6 SECONDS (22.3-36.8); Prothrombin Time 13.5 Seconds (11.1-14.7)
[2020-03-20 11:10] LABS: Anion Gap 6 mmol/L (8-16); Blood Urea Nitrogen 21 mg/dL (7-17); Calcium 9.6 mg/dL (8.4-10.2); Carbon Dioxide 30 mmol/L (22-30); Chloride 102 mmol/L (98-107); Estimated Glomerular Filt Rate 37; Glucose 85 mg/dL (65-105); Potassium 3.9 mmol/L (3.4-5.0); Sodium 138 mmol/L (137-145)
== END 2020-03-20 10:02 | disposition home or self-care (01) ==
LOC: ANHSURGERY 10:03
PROVIDERS: Anesthesiology; PCP Family Medicine; Visit Provider Urology
DX: N20.0 Calculus of kidney (principal); Z79.899 Other long term (current) drug therapy; Z01.812 Encounter for preprocedural laboratory examination
CPT/HCPCS: 36415; 80048; 85610; 85730; 87086

== ENCOUNTER 2020-03-28 01:49 | Outpatient (CLI) | payer MEDICARE, SELFPAY ==
[2020-03-28 18:12] LABS: SARS-CoV-2 RNA PCR Negative
== END 2020-03-28 01:50 | disposition home or self-care (01) ==
LOC: ANHCOVIDDT 01:49
PROVIDERS: PCP Family Medicine; Visit Provider Urology
DX: Z01.812 Encounter for preprocedural laboratory examination (principal); Z20.822 Contact with and (suspected) exposure to COVID-19
CPT/HCPCS: C9803; U0003; U0005

== ENCOUNTER 2020-03-31 01:03 | Day surgery (SDC) | payer MEDICARE, SELFPAY ==
[2020-03-17 10:05] VITALS: BMI 33.3
--- NOTE | 2020-03-30 14:43 | WPDANESEPPF ---
Anes - Initial Pre Proc Eval Procedure: Operation Date: 03/31/20 10:30 Proposed Procedures p Right Extracorporeal Shock Wave Lithotripsy - Arnie Dial MD Date/Time: 03/30/20 14:43 Surgeon: Arnie Dial MD Pre Op Diagnosis: Right Kidney Stone Patient Data Age: 70 Gender: F Height: 1.68 m Weight: 93.63 kg Allergies Allergy/AdvReac Type Severity Reaction Status Date / Time atorvastatin Allergy Unknown severe Verified 03/31/20 08:57 muscle pain simvastatin Allergy Unknown severe Verified 03/31/20 08:57 muscle pain Home Medications Medication Instructions Recorded Confirmed Type aspirin 81 mg tablet,delayed 81 mg PO DAILY 03/10/19 03/31/20 History release cholecalciferol (vitamin D3) 50 mcg PO DAILY 05/31/19 03/31/20 History [Vitamin D3] fenofibrate 160 mg tablet 160 mg PO DAILY #90 tablet 06/21/19 03/31/20 Rx psyllium husk 0.4 gram capsule 0.8 gm PO DAILY cap 08/25/19 03/31/20 History hydrochlorothiazide 25 mg tablet See Rx Instructions .ROUTE 01/31/20 03/31/20 Rx .COMPLEX #90 tablet lisinopril 20 mg tablet See Rx Instructions .ROUTE 01/31/20 03/31/20 Rx .COMPLEX #90 tablet coenzyme [id number] E [CoQ10 SG 1 cap PO DAILY 03/17/20 03/31/20 History 100] Patient hx anesthesia problems: none Family hx anesthesia problems: none PMFSH Past Medical History Medical History (Updated 03/31/20 @ 09:23 by Asa Del Castillo MD) Abnormal urinalysis Acute pyelonephritis Acute respiratory failure with hypoxia Anemia Bacteremia Essential hypertension Hydronephrosis, right Kidney stones Mixed hyperlipidemia Obesity Sepsis Xerostomia Surgical History Surgical History H/O dilation and curettage X2 H/O: hysterectomy History of renal stent Bilaterally today Hx of cholecystectomy (~08/13/19) Status post laser lithotripsy of ureteral calculus 4.2.20 ( right) Family History Family History Mother Patient's mother is , Onset Age: 52 Hypertension Sibling Family history of lung cancer 1 brother had lung cancer Family history of coronary artery disease 1 brother had an aneurysm Social History Social History Social History: The patient has 1 son and is living with her who is a durable power staff counselor. 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 She quit smoking in 1991. Smoking packs per day: 1 Smoking cigarettes per day: 20.0 Years smoked: 15 Smoking pack-years: 15.00 Smoking status: Former smoker Tobacco type: cigarettes Additional smoking assessment comments: QUIT 1991 Alcohol intake: never Substance use: never Substance use type: does not use Living arrangements: with family Gender identity (if verbalized by the patient): Female Spiritual care concerns: No Agree to blood products: Yes Anes - Eval Final PreProcedure Day of Procedure 03/30/20 14:43 Patient weight: obese Heart: regular rate and rhythm Lungs: clear to auscultation and normal air movement Airway: Mallampati scale class II Neurological: alert and oriented Last oral intake: >/= 8 hours ASA classification: III Emergent: no Anesthetic plan: proceed Anesthesia type and monitoring: general LMA Informed Consent: The patient's anesthetic plan and its attendant risks and benefits were discussed with the patient/family/POA. Questions were solicited and answers provided to the satisfaction of the patient/family/POA.
[2020-03-31] VITALS (8 sets, daily range): BP systolic 125–159; BP diastolic 61–79; PULSE 90–108; RESP 13–20; TEMP 36.1–36.7; O2SAT 95–100
--- NOTE | ~2020-03-31 | XR_ITS ---
EXAMINATION: XR abdomen/kub 1V EXAM DATE: 03/31/2020 08:35 INDICATION: For right-sided lithotripsy. Preoperative. TECHNIQUE: Frontal projection(s) of the abdomen for interpretation. Comparison is made to prior exami nation from 03/06/2020. FINDINGS: There is a 4 mm calcification projecting over the midpole of the right kidney, could be storm t the previously seen proximal ureteral stone has retracted to this location. No other suspicious den sities are identified. Pelvic calcifications, phleboliths are unchanged. There are cholecystectomy cl ips. Small to moderate amount of colonic stool. Nonobstructive bowel gas pattern. IMPRESSION: Probable identification of right nephrolithiasis. Reviewed, dictated and finalized at location A. TUBE PUMPER
--- NOTE | 2020-03-31 08:45 | WPDHPUPDATE1 ---
History and Physical Update Update Date/Time: 03/31/20 08:45 History and Physical has been reviewed, including an updated exam of the patient. There are NO changes in the patient's condition. Risks, benefits, and alternatives have been discussed and questions answered. Patient agrees to proceed with procedure.
[2020-03-31] MEDS: LACTATED RINGERS 1,000 ML 30 ML IV CONT (09:16)
[2020-03-31] MEDS: ceFAZolin 2 GM/D5W 50 ML 2 GM/50 ML BAG IVPB (09:53)
--- NOTE | 2020-03-31 10:05 | PM.PROC ---
Procedure Note - Detailed Date of procedure: 03/31/20 Pre-op diagnosis: Right Kidney Stone Post-op diagnosis: same Procedure performed: The patient was brought to the operative suite where she was placed in the supine position on the Dornier lithotripsy table. The focal point of the lithotripter was placed at a 5mm right renal calculus. A total of 2500 shocks were delivered at a power setting of 4. There appeared to be good fragmentation of the stone. The patient tolerated the procedure well and was taken to the recovery room in good condition. Anesthesia: GLMA Surgeon: Arnie Dial MD Estimated blood loss (mL): 0 Drains: No Packing: No Pathology: none sent Complications: No immediate complications Condition: stable Disposition: PACU
== END 2020-03-31 12:15 | disposition home or self-care (01) ==
PROVIDERS: PCP Family Medicine; Visit Provider Urology
PROC: (CPT 50590; principal; 2020-03-31 10:30)
DX: N20.0 Calculus of kidney (principal); Z79.82 Long term (current) use of aspirin; D64.9 Anemia, unspecified; I10 Essential (primary) hypertension; E78.2 Mixed hyperlipidemia; K11.7 Disturbances of salivary secretion; Z87.891 Personal history of nicotine dependence; E66.9 Obesity, unspecified; Z68.33 Body mass index [BMI] 33.0-33.9, adult
CPT/HCPCS: 50590; 36415; 74018; 80048; 85610; 85730; 87086; C9803; J0690; J1100; J2405; J2704; J3010; J7120; U0003; U0005

== ENCOUNTER 2020-04-14 13:02 | Outpatient (CLI) | payer MEDICARE, SELFPAY ==
--- NOTE | ~2020-04-14 | XR_ITS ---
XR abdomen/kub 1V 04/14/2020 13:21 INDICATION: Right kidney stone TECHNIQUE: KUB COMPARISON: 03/31/2020 FINDINGS: Bowel gas pattern is normal. There are cholecystectomy clips. There is no evidence of free air, mass, organomegaly, ascites or obstruction. No abnormal calculi are seen. The bones appear int act. IMPRESSION: 1: No acute abdominal abnormality identified. Reviewed, dictated and finalized at location B. HANDISING INTERN
== END 2020-04-14 13:03 | disposition home or self-care (01) ==
PROVIDERS: PCP Family Medicine; Visit Provider Urology
DX: N20.0 Calculus of kidney (principal)
CPT/HCPCS: 74018

== ENCOUNTER 2020-07-13 08:35 | Outpatient (CLI) | payer MEDICARE, SELFPAY ==
--- NOTE | ~2020-07-13 | US_ITS ---
EXAMINATION: US arterial ankle brachial ind DATE: 07/13/2020 09:18 INDICATION: Peripheral vascular disease. TECHNIQUE: Segmental pressures and plethysmographic and Doppler waveforms of the brachial and lower e xtremity arteries were obtained. COMPARISON: None. FINDINGS: Right and left brachial artery pressures of 150 mm Hg and 157 mm Hg, respectively, are concordant (no rmal difference <= 30 mmHg). The right ankle-brachial index (URBANO) is 1.24 (normal >= 0.9-1.0). The right great toe-brachial index (TBI) is 0.73 (normal >= 0.65). Arterial Doppler waveforms are biphasic with brisk systolic upstrokes at the right posterior tibial and dorsalis pedis arteries. The left URBANO is 1.06. The left TBI is 0.82. Arterial Doppler waveforms are biphasic with brisk systol ic upstrokes at both the left posterior tibial and dorsalis pedis arteries. IMPRESSION: 1. No significant arterial occlusive disease to either lower limb with normal bilateral ABIs and TBIs . Reviewed, dictated and finalized at location A. IMPRESSION: 1. No significant arterial occlusive disease to either lower limb with normal b ilateral ABIs and TBIs.
== END 2020-07-13 08:36 | disposition home or self-care (01) ==
PROVIDERS: PCP Family Medicine; Visit Provider Family Medicine
DX: I73.9 Peripheral vascular disease, unspecified (principal)
CPT/HCPCS: 93922

== ENCOUNTER → 2020-09-06 07:56 | Outpatient (CLI) | payer MEDICARE, SELFPAY ==
--- NOTE | ~2020-09-06 | XR_ITS ---
EXAMINATION: XR abdomen/kub 1V EXAM DATE: 09/06/2020 08:13 INDICATION: Kidney stone on right side, lithotripsy 05/2020. TECHNIQUE: Frontal projection(s) of the abdomen for interpretation. Comparison is made to prior exami nation from 04/14/2020. FINDINGS: There is expected amount of colonic stool and gas. No small bowel dilation, nonobstructiv e bowel gas pattern. There are no suspicious calcifications identified. There is no organomegaly suspected. There are mild bony degenerative changes. There are cholecystectomy clips. IMPRESSION: Unremarkable abdomen x-ray exam. Reviewed, dictated and finalized at location B.
== END ==
PROVIDERS: PCP Family Medicine; Visit Provider Urology
DX: N20.0 Calculus of kidney (principal)
CPT/HCPCS: 74018

== ENCOUNTER → 2020-09-22 10:42 | Outpatient (CLI) | payer MEDICARE, SELFPAY ==
--- NOTE | ~2020-09-22 | MM_ITS ---
EXAMINATION: MM screening jhony BI w emilee HISTORY: Screening TECHNIQUE: Craniocaudal and mediolateral oblique 3-D tomosynthesis images were obtained and synthetic 2-D images were generated. CAD analysis was submitted and interpreted. COMPARISON: No prior mammogram is available for comparison at this institution. BREAST PARENCHYMAL COMPOSITION: There are scattered areas of fibroglandular density. FINDINGS: There is no evidence of suspicious mass, calcification, or architectural distortion to sugg est malignancy in either breast. There has been no suspicious interval change. IMPRESSION: 1. No mammographic evidence of malignancy. 2. Recommend routine screening mammography in one year. BI-RADS Category 1: Negative Reviewed, dictated and finalized at location A.
== END ==
PROVIDERS: PCP Family Medicine; Visit Provider Family Medicine
DX: Z12.31 Encounter for screening mammogram for malignant neoplasm of breast (principal)
CPT/HCPCS: 77063; 77067

== ENCOUNTER → 2021-03-27 14:44 | Outpatient (CLI) | payer MEDICARE, SELFPAY ==
--- NOTE | ~2021-03-27 | DEXA_ITS ---
Bone Density Report Name: ARMIN HOOPER Age: 71 Sex: Female Ethnicity: White Date of : 1950 Indication: postmenopausal; screening for osteoporosis; height loss; hysterectomy; Referring Provider: MILLER IRENE Study: Bone densitometry was performed. Exam Date: March 27, 2021 Accession number: [id number] Bone Density: Region BMD T-score Z-score Classification AP Spine (L1-L4) 0.913 -1.2 0.9 Osteopenia Femoral Neck (Left) 0.792 -0.5 1.3 Normal Total Hip (Left) 0.891 -0.4 1.1 Normal Femoral Neck (Right) 0.728 -1.1 0.7 Osteopenia Total Hip (Right) 0.848 -0.8 0.7 Normal Total Hip Mean 0.870 -0.6 0.9 Normal World Health Organization criteria for BMD impression classify patients as: Normal (T-score at or above -1.0), Osteopenia (T-score between -1.0 and -2.5), or Osteoporosis (T-score at or below -2.5). 10-year Fracture Risk(1): Major Osteoporotic Fracture 8.6% Hip Fracture 0.9% Reported Risk Factors: [place] (), Neck BMD=0.728, BMI=32.3 (1) FRAX(R) Version 3.08. Fracture probability calculated for an untreated patient. Fracture probability may be lower if the patient has received treatment. Previous Exams: Region Exam Age BMD T-score BMD Change BMD Change Date g/cm2 vs Baseline vs Previous AP Spine(L1-L4) 03/27/2021 71 0.913 -1.2 -0.063 -0.022 05/12/2017 67 0.936 -1.0 -0.040* -0.040* 11/26/2010 60 0.976 -0.6 Total Hip(Left) 03/27/2021 71 0.891 -0.4 -0.058 -0.036 05/12/2017 67 0.927 -0.1 -0.022 -0.022 11/26/2010 60 0.949 0.1 Total Hip(Right) 03/27/2021 71 0.848 -0.8 -0.116 -0.076 05/12/2017 67 0.925 -0.1 -0.039* -0.039* 11/26/2010 60 0.964 0.2 *Denotes significance at 95% confidence level, LSC for AP Spine = 0.022 g/cm2, LSC for Total Hip = 0.027 g/cm2 Clinical Information Provided by Patient: Has used the following medications: Vitamin D, Calcium Has the following medical conditions: Hysterectomy Patient maximum height was 66.2 Menopause Age: 53 Does not regularly consume dairy products Drinks caffeinated beverages Onset of menses at age 12 Number of children 1 Impression: The patient has low bone mass, based on the Total Spine T-score. The patient has an estimated ten-year risk of hip fracture of 0.9% and an estimated ten-year risk of major fracture of 8.6%, base
== END ==
PROVIDERS: PCP Family Medicine; Visit Provider Family Medicine
DX: Z78.0 Asymptomatic menopausal state (principal); M85.88 Other specified disorders of bone density and structure, other site; M85.851 Other specified disorders of bone density and structure, right thigh
CPT/HCPCS: 77080

== ENCOUNTER 2021-09-14 09:31 | Emergency (ER) | payer MEDICARE, SELFPAY ==
--- NOTE | ~2021-09-14 | XR_ITS ---
EXAMINATION: XR orbits min 4V DATE: 09/14/2021 10:05 INDICATION: Right orbital pain. Fall. TECHNIQUE: 4 views of the orbits were obtained. COMPARISON: None. FINDINGS: Bone alignment is normal. No fracture. IMPRESSION: 1. No fracture. Reviewed, dictated and finalized at location A. IMPRESSION: 1. No fracture.
--- NOTE | 2021-09-14 09:44 | ED.HEATRA ---
HPI - Head Injury General Chief complaint: Wound/Laceration Stated complaint: head injury Time Seen by Provider: 09/14/21 09:45 Source: patient Mode of arrival: ambulatory Limitations: no limitations History of Present Illness HPI Narrative: 71-year-old female presented for complaint of injury to face today. She states she was walking and tripped on the side of the sidewalk, and landed on her face. She hit the right side of her face, she denies bracing herself. Endorses right eyebrow laceration and bruising to the cheekbone. Denies loss of consciousness. She cleaned it with bacitracin prior to arrival but it continued to bleed. Denies vision changes, headache, dizziness, nausea, vomiting, confusion or change in gait. Endorses tetanus likely 6 years ago. Related Data Home Medications Medication Instructions Recorded Confirmed aspirin 81 mg tablet,delayed 81 mg PO DAILY 03/10/19 07/25/21 release cholecalciferol (vitamin D3) 50 50 mcg PO DAILY 05/31/19 07/25/21 mcg (2,000 unit) capsule (Vitamin D3) psyllium husk 0.4 gram capsule 0.8 gm PO DAILY 08/25/19 07/25/21 (Metamucil) coenzyme G10-xhzjcdj E 100 mg-100 1 cap PO DAILY 03/17/20 07/25/21 unit capsule fluticasone propionate 50 1 spray intranasal DAILY 07/25/21 07/25/21 mcg/actuation nasal spray,suspension (Flonase Allergy Relief) Allergies Allergy/AdvReac Type Severity Reaction Status Date / Time atorvastatin Allergy Unknown severe Verified 09/14/21 09:53 muscle pain simvastatin Allergy Unknown severe Verified 09/14/21 09:53 muscle pain Review of Systems Review of Systems: CONSTITUTIONAL: Denies body aches, fever, chills EYES: Denies visual changes, redness, or discharge. ENT: Denies rhinorrhea, congestion CARDIOVASCULAR: Denies chest pain, palpitations, or edema. RESPIRATORY: Denies cough or dyspnea. GASTROINTESTINAL: Denies abdominal pain, nausea, vomiting SKIN: reports right face wound MUSCULOSKELETAL: Denies back pain, neck pain NEUROLOGIC: Denies headache, numbness, tingling, or weakness. [facility] Past Medical History Medical History Abnormal urinalysis Acute kidney injury Acute pyelonephritis Acute respiratory failure with hypoxia Anemia Bacteremia Bilateral hydronephrosis Encounter for surgical aftercare following surgery on the digestive system Essential hypertension GERD with esophagitis Hydronephrosis, right Kidney stones Left nephrolithiasis Left ureteral calculus Medicare annual wellness visit, subsequent Mixed hyperlipidemia Obesity Pneumonia Sepsis Urinary tract infection Xerostomia Surgical History Surgical History H/O dilation and curettage X2 H/O: hysterectomy History of renal stent Bilaterally today Hx of cholecystectomy (~08/13/19) Status post laser lithotripsy of ureteral calculus 4.2.20 ( right) Family History Family History Mother Patient's mother is , Onset Age: 52 Hypertension Sibling Family history of lung cancer 1 brother had lung cancer Family history of coronary artery disease 1 brother had an aneurysm Social History Social History Social History: The patient has 1 son and is living with her who is a durable power hand upper and bottom lacer. 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 She quit smoking in 1991. Smoking packs per day: 1 Smoking cigarettes per day: 20.0 Years smoked: 15 Smoking pack-years: 15.00 Tobacco type: cigarettes Additional smoking assessment comments: QUIT 1991 Alcohol intake: never Substance use: never Substance use type: does not use Gender identity (if verbalized by the patient): Female Spiritual care concerns: No Agree to blood products: Ye
[2021-09-14 09:46] VITALS: BP 132/74; PULSE 87; RESP 16; TEMP 36.8; O2SAT 98
== END 2021-09-14 10:40 | disposition home or self-care (01) ==
PROVIDERS: Emergency Provider Nurse Practitioner Family; PCP Family Medicine
DX: S01.81XA Laceration without foreign body of other part of head, initial encounter (principal); W01.0XXA Fall on same level from slipping, tripping and stumbling without subsequent striking against object, initial encounter; Z87.891 Personal history of nicotine dependence; I10 Essential (primary) hypertension; K21.9 Gastro-esophageal reflux disease without esophagitis; E78.2 Mixed hyperlipidemia; E66.9 Obesity, unspecified; Z68.32 Body mass index [BMI] 32.0-32.9, adult
CPT/HCPCS: 12011; 70200; 99213; G0463

== ENCOUNTER → 2021-12-13 07:15 | Outpatient (CLI) | payer MEDICARE, SELFPAY ==
--- NOTE | ~2021-12-13 | MM_ITS ---
EXAMINATION: MM screening jhony BI w emilee HISTORY: Screening TECHNIQUE: Craniocaudal and mediolateral oblique 3-D tomosynthesis images were obtained and synthetic 2-D images were generated. CAD analysis was submitted and interpreted. COMPARISON: Comparison to multiple prior studies sequentially, with oldest reviewed study dated 05/12. BREAST PARENCHYMAL COMPOSITION: There are scattered areas of fibroglandular density. FINDINGS: There is no evidence of suspicious mass, calcification, or architectural distortion to sugg est malignancy in either breast. There has been no suspicious interval change. IMPRESSION: 1. No mammographic evidence of malignancy. 2. Recommend routine screening mammography in one year. BI-RADS Category 1: Negative Reviewed, dictated and finalized at location A.
== END ==
PROVIDERS: PCP Family Medicine; Visit Provider Physician Assistant
DX: Z12.31 Encounter for screening mammogram for malignant neoplasm of breast (principal)
CPT/HCPCS: 77063; 77067

== ENCOUNTER → 2023-03-22 08:12 | Outpatient (CLI) | payer MEDICARE, SELFPAY ==
--- NOTE | ~2023-03-22 | MM_ITS ---
EXAMINATION: MM screening [facility] BI w emilee HISTORY: Screening mammogram TECHNIQUE: Craniocaudal and mediolateral oblique 3-D tomosynthesis images were obtained and synthetic 2-D images were generated. CAD analysis was submitted and interpreted. COMPARISON: 12/13/2021, 09/22/2020, 09/01/2019, 12/17/2018, 06/10/2018, 05/22/2018 BREAST PARENCHYMAL COMPOSITION: There are scattered areas of fibroglandular density. FINDINGS: Scattered benign-appearing calcifications are present. No suspicious mass, calcification, o r architectural distortion are identified in either breast to suggest malignancy. There has been no s uspicious interval change. IMPRESSION: 1. No mammographic evidence of malignancy. 2. Recommend routine screening mammography in one year. BI-RADS Category 2: Benign finding(s). Reviewed, dictated and finalized at location A. R LABORATORY ASSISTANT
== END ==
PROVIDERS: PCP Family Medicine; Visit Provider Physician Assistant
DX: Z12.31 Encounter for screening mammogram for malignant neoplasm of breast (principal)
CPT/HCPCS: 77063; 77067

== ENCOUNTER → 2023-04-16 16:22 | Outpatient (CLI) | payer MEDICARE, SELFPAY ==
--- NOTE | ~2023-04-16 | CT_ITS ---
EXAMINATION: CT abdomen pelvis wo con DATE: 04/16/2023 16:34 INDICATION: Right-sided flank pain TECHNIQUE: Computed tomography (CT) of the abdomen and pelvis was performed without intravenous contr ast. Automated exposure control and iterative reconstruction technique were employed. The dose-length product was 793.92 mGy-cm. COMPARISON: 03/15/2020 FINDINGS: Lung bases are clear. Heart size is normal. Atherosclerotic coronary artery calcifications. No perica rdial or pleural effusion. Cholecystectomy clips at the gallbladder fossa. Liver, spleen, pancreas, b ilateral adrenal glands and left kidney are normal. There is a duplicated right renal collecting syst em with separate ureters draining the upper and lower poles which appear to fuse approximately 3 cm a nany level of the ureterovesicular junction. There is unchanged mild hydronephrosis of the lower pole moiety with no evident hydroureter. The previously seen proximal right ureteral stone is no longer v isualized. There is no evident urolithiasis at either kidney or ureter in the current study. 11 mm ex ophytic cyst at the lower pole of the right kidney. Bowels including the appendix are normal. Bladder is normal. The uterus is not identified and has likely been surgically resected. No free intraperito leeanne gas or fluid. No pathologically enlarged abdominal or pelvic lymphadenopathy. Mild lumbar spondy losis with moderate lower lumbar facet osteoarthritis. IMPRESSION: 1. Partially duplicated right renal collecting system with no urolithiasis but unchanged mild hydrone phrosis of the lower pole moiety of the right kidney. Reviewed, dictated and finalized at location A. ICAL/MOBILE WATCH OFFICER IMPRESSION: 1. Partially duplicated right renal collecting system with no urolithiasis but unchanged mild hydronephrosis of the lower pole moiety of the right kidney.
== END ==
PROVIDERS: PCP Physician Assistant; Visit Provider Physician Assistant
DX: R10.9 Unspecified abdominal pain (principal); Z87.442 Personal history of urinary calculi
CPT/HCPCS: 74176

== ENCOUNTER 2023-08-06 13:15 | Outpatient (CLI) | payer MEDICARE, SELFPAY ==
--- NOTE | ~2023-08-06 | DEXA_ITS ---
? Bone Density Report? Name:? ARMIN HOOPER Patient ID:??? [id number] Age:? 73 Sex:? Female Ethnicity:? White Date of : 1950 Indication: postmenopausal; screening for osteoporosis; height loss; prior fracture; hysterectomy; Referring Provider: MILLER IRENE Study: Bone densitometry was performed. Exam Date: August 06, 2023 Accession number: [id number] Bone Density: Region? BMD?? ?T-score? Z-score?? Classification AP Spine(L1, L2, L3)? 0.868?? -1.4?0.8? Osteopenia Femoral Neck (Left)? 0.751?? -0.9? 1.1? Normal Total Hip (Left)? 0.914 ??-0.2? 1.4? Normal Femoral Neck (Right)? 0.711?? -1.2? 0.7? Osteopenia Total Hip (Right)? 0.863?? -0.6? 1.0? Normal Femoral Neck Mean? 0.731?? -1.1? 0.9? Osteopenia Total Hip Mean? 0.889?? -0.4?1.2? Normal World Health Organization criteria for BMD impression classify patients as: Normal (T-score at or above -1.0), Osteopenia (T-score between -1.0 and -2.5), or Osteoporosis (T-score at or below -2.5). 10-year Fracture Risk(1): Major Osteoporotic Fracture? 15% Hip Fracture? 1.9% Reported Risk Factors: [place] (), Neck BMD=0.711, BMI=31.9, previous fracture (1) FRAX? Version 3.08. Fracture probability calculated for an untreated patient. Fracture probability may be lower if the patient has received treatment. Clinical Information Provided by Patient: Has had a low trauma fracture Has the following medical conditions: Hysterectomy Patient maximum height was 66.5 Menopause Age: 51 No regular weight bearing exercise Onset of menses at age 13 Number of children 1 Impression: The patient has low bone mass, based on the Total Spine T-score. The patient has risk factors, including: previous fracture. Discussion: BONE DENSITY IS LOW AT ONE OR MORE SKELETAL SITES. This patient's lowest T-score is low at one or more skeletal sites.? It meets the World Health Organization's (WHO) criteria for ?low bone mass?? (T-score between -1.0 and -2.5).? The patient's 10-year risk of fracture as calculated by FRAX is less than the threshold where pharmacological therapy is recommended by the National Osteoporosis Foundation (NOF).? However, all treatment decisions require clinical judgment and consideration of individual patient factors, including patient preferences, comorbidities, previous drug use, risk factors not captured in the FRAX model (e.g., frailty, falls, vitamin D deficiency, increased bone turnover, interval significant decline in bone density) and possible under or overestimation of fracture risk by FRAX. The patient should follow a healthful lifestyle (good nutrition with
== END 2023-08-06 13:16 | disposition home or self-care (01) ==
LOC: CHSIMG 13:16
PROVIDERS: PCP Family Medicine; Visit Provider Family Medicine
DX: Z78.0 Asymptomatic menopausal state (principal); M85.89 Other specified disorders of bone density and structure, multiple sites
CPT/HCPCS: 77080

== ENCOUNTER 2024-03-23 07:09 | Outpatient (CLI) | payer MEDICARE, SELFPAY ==
--- NOTE | ~2024-03-23 | MM_ITS ---
EXAMINATION: MM screening jhony BI w emilee HISTORY: Screening TECHNIQUE: Craniocaudal and mediolateral oblique 3-D tomosynthesis images were obtained and synthetic 2-D images were generated. CAD analysis was submitted and interpreted. COMPARISON: No prior mammogram is available for comparison at this institution. Comparison to multipl e prior studies sequentially, with oldest reviewed study dated 09/01/2019. BREAST PARENCHYMAL COMPOSITION: Not dense: There are scattered areas of fibroglandular density. FINDINGS: The right breast is stable without evidence for malignancy. There are small nodular asymmet ry centrally in the left breast. There are no suspicious calcifications or architectural distortion. IMPRESSION: 1. New nodular asymmetry centrally in the left breast. 2. Additional mammographic views and possible breast ultrasound are recommended. BI-RADS Category 0: Incomplete: Needs additional imaging evaluation. Reviewed, dictated and finalized at location A. ETS ASSEMBLER IMPRESSION: 1. New nodular asymmetry centrally in the left breast. 2. Additional mammographic views and possible breast ultrasound are recommended . BI-RADS Category 0: Incomplete: Needs additional imaging evaluation.
--- OUTSIDE RECORDS SUMMARY | 2024-03-25 15:31 | XMS_ITS | Clinical Summary ---
Author Organization [facility] Address [address] [place] [address]. [place] [address] Care Team Providers Care Shroudman Name Role Phone Unavailable Primary Care Provider Unavailabl e Social History Tobacco Use Types Packs/Day Years Used Date Smoking Tobacco: Never Assessed Comments Unknown Sex and Gender Information Value Date Recorded Sex Assigned at Not on file Legal Sex Female 2:23 PM CDT Gender Identity Not on file Sexual Orientation Not on file Plan of Treatment Health Maintenance Due Date Last Done Comments Colorectal Cancer Screening Colonoscopy (10 Years) 1950 Hepatitis C 1969 DTaP, Tdap and Td Vaccines ( 1 - Tdap) 1970 Mammogram Screening 1991 Zoster Vaccines (1 of 2) 2001 Dexa Scan (General) 02/01/2016 Pneumococcal Vaccine: 65+ Ye ars (1 of 1 - PCV) 02/01/2016 COVID-19 Vaccine ( - 2023-2 5 season) 2023 Influenza Adult (#1) 2023 RSV Immunization or 60+ Years (1 - 1-dose 75+ series) 2026 Meningococcal Vaccine Aged Out No pat oscar eligible based on patient's age to complete this topic RSV Immunizations Under 20 Months Aged Out No longer eligible based on patient's age to complete this topic
--- OUTSIDE RECORDS SUMMARY | 2024-03-25 15:31 | XMS_ITS | Clinical Summary ---
Author Organization [facility] Address [address] [place] [id number] Care Team Providers Care Belt Repairer Name Role Phone Brandi Clark MD Primary Care Provider + Allergies No known active allergies Medications lisinopril (PRINIVIL,ZESTRI L) 20 mg tablet Take 20 mg by mouth daily Active fenofibrate (TRIGLIDE) 160 mg tablet Take 160 mg by mouth daily Active vit D3-vit O-xpsvpoesi-hdxx [phone] nokh-tlj-yh-mg tablet Take by mouth Active hydroCHLOROthiaz sunday (HYDRODIURIL) 25 mg tablet Take 25 mg by mouth daily Active Active Problems Problem Noted Date Diagnosed Date Abnormal mammogram 02/02/2019 Surgical History Surgery Date Site/Laterality Comments TOTAL ABDOMINAL HYSTERECTOMY W/ BILATERAL SALPINGOOPHORECTOMY Medical History Medical History Date Comments Hypertension Family History Medical History Relation Name Comments Lung cancer Brother Skin cancer Mother Relation Name Status Comments Brother Mother Social History Tobacco Use Types Packs/Day Years Used Date Smoking Tobacco: Never Assessed Comments No Sex and Gender Information Value Date Recorded Sex Assigned at Not on file Legal Sex Female 1:08 PM CDT Gender Identity Not on file Sexual Orientation Not on file Obstetrics History Last Filed Vital Signs Vital Sign Reading Time Taken Comments Blood Pressure - - Pulse - - Temperature - - Respiratory Rate - - Oxygen Saturation - - Inhaled Oxygen Concentration - - Weight 92.1 kg (203 lb) 02/02/2019 1:39 PM GUEST SERVICES ASSOCIATE Height 165.1 cm (5' 5 ) 02/02/2019 1:39 PM GUEST SERVICES ASSOCIATE Body Mass Index 33.78 02/02/2019 1:39 PM GUEST SERVICES ASSOCIATE Plan of Treatment Not on file Insurance [facility] MDCR HMO REF [facility] MEDICARE Address: [facility] [address] [place] [address] Care Teams Belt Repairer Relationship Specialty Start Date End Date Brandi Clark MD PCP - General Family Medicine 12/18/18
--- OUTSIDE RECORDS SUMMARY | 2024-03-25 15:31 | XMS_ITS | Referral Summary ---
Author Organization [facility] Address [facility] [place] [address] Care Team Providers Care Top Lift Nailer Name Role Phone Brandi Clark MD Primary Care Provider + Allergies No known active allergies Medications lisinopril (PRINIVIL,ZESTRI L) 20 mg tablet Take 20 mg by mouth daily Active fenofibrate (TRIGLIDE) 160 mg tablet Take 160 mg by mouth daily Active vit D3-vit K-ybwgukusz-xdnp [phone] lvzz-zbc-jc-mg tablet Take by mouth Active hydroCHLOROthiaz sunday (HYDRODIURIL) 25 mg tablet Take 25 mg by mouth daily Active Active Problems Problem Noted Date Diagnosed Date Abnormal mammogram 02/02/2019 Social History Tobacco Use Types Packs/Day Years Used Date Smoking Tobacco: Never Assessed Comments No Sex and Gender Information Value Date Recorded Sex Assigned at Not on file Legal Sex Female 1:08 PM CDT Gender Identity Not on file Sexual Orientation Not on file Last Filed Vital Signs Vital Sign Reading Time Taken Comments Blood Pressure - - Pulse - - Temperature - - Respiratory Rate - - Oxygen Saturation - - Inhaled Oxygen Concentration - - Weight 92.1 kg (203 lb) 02/02/2019 1:39 PM FELLER HAND Height 165.1 cm (5' 5 ) 02/02/2019 1:39 PM FELLER HAND Body Mass Index 33.78 02/02/2019 1:39 PM FELLER HAND Plan of Treatment Not on file Insurance [facility] MDCR HMO REF Care Teams Top Lift Nailer Relationship Specialty Start Date End Date Brandi Clark MD PCP - General Family Medicine 12/18/18
== END 2024-03-23 07:10 | disposition home or self-care (01) ==
LOC: CHSIMG 07:10
PROVIDERS: PCP Family Medicine; Visit Provider Student in an Organized Health Care Education/Training Program
DX: Z12.31 Encounter for screening mammogram for malignant neoplasm of breast (principal); R92.8 Other abnormal and inconclusive findings on diagnostic imaging of breast
CPT/HCPCS: 77063; 77067

== ENCOUNTER 2024-08-26 07:54 | Outpatient (CLI) | payer MEDICARE, SELFPAY ==
[2024-08-26 13:09] LABS: Creatinine Urine 37.2 mg/dL
[2024-08-26 13:10] LABS: Vitamin D 25 Hydroxy 50.6 ng/mL
[2024-08-26 13:23] LABS: Alanine Aminotransferase 30 U/L (6-35); Albumin Level 4.4 g/dL (3.5-5.1); Alkaline Phosphatase 84 U/L (38-126); Anion Gap 10 mmol/L (4-12); Aspartate Amino Transferase 69 U/L (14-36); Bilirubin,Total 0.3 mg/dL (0.2-1.3); Blood Urea Nitrogen 24 mg/dL (7-17); Calcium 10.2 mg/dL (8.4-10.2); Carbon Dioxide 27 mmol/L (22-30); Chloride 98 mmol/L (98-107); Cholesterol 243 mg/dL (0-200); Estimated Glomerular Filt Rate > 60; Glucose 87 mg/dL (65-110); HDL Direct 77 mg/dL; Potassium 4.4 mmol/L (3.4-5.0); Sodium 135 mmol/L (137-145); Total Protein 7.9 g/dL (6.3-8.2); Triglycerides 65 mg/dL (<150)
[2024-08-26 13:23] LABS: MALB Creatinine Ratio < 16.1 mg/g (0-30); Microalbumin Urine Random < 6.0 mg/L (0-16.7)
[2024-08-26 13:35] LABS: LDL Cholesterol Direct 115 mg/dL
[2024-08-26 15:29] LABS: Hemoglobin A1C 5.8 % (<5.7)
== END 2024-08-26 07:55 | disposition home or self-care (01) ==
LOC: ANHGOSHLAB 07:56
PROVIDERS: PCP Family Medicine; Visit Provider Family Medicine
DX: E78.2 Mixed hyperlipidemia (principal); M85.80 Other specified disorders of bone density and structure, unspecified site; N18.31 Chronic kidney disease, stage 3a; R73.9 Hyperglycemia, unspecified; Z78.0 Asymptomatic menopausal state; Z79.899 Other long term (current) drug therapy
CPT/HCPCS: 36415; 80053; 80061; 82043; 82306; 83036

== ENCOUNTER 2024-10-13 07:44 | Outpatient (CLI) | payer MEDICARE, SELFPAY ==
--- NOTE | ~2024-10-13 | US_ITS ---
US breast LT limited 10/13/2024 08:00 Indication: Follow-up left breast mass Procedure: High-resolution Limited ultrasound of the left breast Comparison: 04/05/2024 Findings: Stable 3 mm cyst at 12:00, 6 cm from the nipple. No suspicious masses to suggest malignancy . Impression: 1: No sonographic evidence for malignancy in the left breast. Routine yearly screening mammogram and regular clinical breast examination are recommended. BI-RADS CATEGORY 2 - BENIGN FINDINGS Reviewed, dictated and finalized at location A. Impression: 1: No sonographic evidence for malignancy in the left breast. Routine yearly screening mammogram and regular clinical breast examination are recommended. BI-RADS CATEGORY 2 - BENIGN FINDINGS
--- OUTSIDE RECORDS SUMMARY | 2024-10-13 07:49 | XMS_ITS | Clinical Summary ---
Author Organization [facility] Address [address] [place] [id number] Care Team Providers Care Banking Services Clerk Name Role Phone Brandi Clark MD Primary Care Provider + Allergies No known active allergies Medications lisinopril (PRINIVIL,ZESTRI L) 20 mg tablet Take 20 mg by mouth daily Active fenofibrate (TRIGLIDE) 160 mg tablet Take 160 mg by mouth daily Active vit D3-vit R-pdxqqiwfn-mose [phone] mfgl-ksr-fi-mg tablet Take by mouth Active hydroCHLOROthiaz sunday [...] 92.1 kg (203 lb) 02/02/2019 1:39 PM MUD MIXER Height 165.1 cm (5' 5) 02/02/2019 1:39 PM MUD MIXER Body Mass Index 33.78 02/02/2019 1:39 PM MUD MIXER Plan of Treatment Not on file Insurance [facility] MDCR HMO REF [facility] MEDICARE Address: [facility] [address] [place] [address] Care Teams Banking Services Clerk Relationship Specialty Start Date End Date Brandi Clark MD PCP - General Family Medicine 12/18/18
--- OUTSIDE RECORDS SUMMARY | 2024-10-13 07:49 | XMS_ITS | Clinical Summary ---
Author Organization [facility] Address [address] [place] [id number] Care Team Providers Care Vat Cleaner Name Role Phone Unavailable Primary Care Provider [...] 1 - Tdap) 1970 Mammogram Screening 1991 Pneumococcal Vaccine: 50+ Ye ars (1 of 1 - PCV) 2001 Zoster Vaccines (1 of 2) 2001 Dexa Scan (General) 02/01/2016 COVID-19 Vaccine ( - 2023-2 5 season) 2023 RSV Immunization or 60+ Years (1 - 1-dose 75+ series) 2026 Meningococcal B Vaccine Aged Out No l onger eligible based on patient's age to complete this topic Meningococcal Vaccine Aged Out No pat oscar eligible based on patient's age to complete this topic RSV Immunizations Under 20 Months Aged Out No longer eligible based on patient's age to complete this topic
== END 2024-10-13 07:45 | disposition home or self-care (01) ==
PROVIDERS: PCP Family Medicine; Visit Provider Family Medicine
DX: R92.8 Other abnormal and inconclusive findings on diagnostic imaging of breast (principal); N63.20 Unspecified lump in the left breast, unspecified quadrant
CPT/HCPCS: 76642